=== PATIENT | male | born 1955 | race Caucasian/White ===

== ENCOUNTER 2024-10-11 04:07 | Emergency (ER) | payer MEDICARE, MEDICAID, SELFPAY ==
[2024-10-11] VITALS (7 sets, daily range): BP systolic 94–110; BP diastolic 56–80; PULSE 72–102; RESP 12–18; TEMP 36.1–37.1; O2SAT 95–99; BMI 33.3
--- NOTE | ~2024-10-11 | XR_ITS ---
CLINICAL HISTORY: Hypotension 1 view chest x-ray Comparison: None Findings: No consolidation or effusion. Normal size heart. No acute fracture. The patient is status post median sternotomy. The most superior sternal suture wire is broken. IMPRESSION: 1. No acute intrathoracic process. 2. Broken superior sternal suture wire. This document has been electronically signed by: Austyn Gonzales MD on 10/11/2024 06:11:49
--- NOTE | 2024-10-11 04:16 | ECG_ITS ---
Test Reason : CHEST PAIN Blood Pressure : */* mmHG Vent. Rate : 84 BPM Atrial Rate : * BPM P-R Int : * ms QRS Dur : 98 ms QT Int : 394 ms P-R-T Axes : * -12 118 degrees QTcB Int : 465 ms Artifact in tracing Atrial fibrillation with a competing junctional pacemaker ST & T wave abnormality, consider lateral ischemia Abnormal ECG No previous ECGs available Referred By: Yash Ascencio Electronically Signed By: KOKI MARCANO
--- NOTE | 2024-10-11 04:29 | ED.GENADULT ---
HPI - General Adult General Chief complaint: General Medical Stated complaint: HYPOTENSION Time Seen by Provider: 10/11/24 04:15 Source: patient, EMS and RN notes reviewed Mode of arrival: EMS Limitations: other (History of dementia and patient is poor historian) History of Present Illness ED Provider: DR. 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 Resident at [facility] sent for further evaluation of [facility] at the [facility], patient is a poor historian at his baseline secondary to dementia unable to provide history. Patient with history of orthostatic hypotension. Related Data Allergies Allergy/AdvReac Type Severity Reaction Status Date / Time No Known Allergies Allergy Verified 10/11/24 04:19 Review of Systems Review of Systems: Yes Unobtainable due to mental status PMFSH Social History Social History Smoked in Last 30 Days: No Advance Directives: Yes Advance Directives Information Provided: Yes Advance Directives on File: No Physical Exam ED Vital Signs: Vital Signs - 24 hr 10/11/24 04:17 10/11/24 04:30 10/11/24 04:31 Temperature 97.0 F Pulse Rate 82 90 89 Respiratory Rate 17 Blood Pressure 100/56 L 100/56 L 106/66 Pulse Oximetry 98 Oxygen Delivery Method Room Air 10/11/24 04:31 10/11/24 06:00 Temperature 98.7 F Pulse Rate 102 H 72 Respiratory Rate 12 Blood Pressure 109/63 104/58 L Pulse Oximetry 95 Oxygen Delivery Method Room Air BMI result Body Mass Index 33.3 Vital signs have been reviewed and appear to be correct. Blood pressure elevated. Heart rate normal. Respiratory rate normal. Temperature normal. Oxygen saturation normal. Appearance: Alert. Oriented to self, confused otherwise, No acute distress. Head: Normal external exam. Normocephalic. Atraumatic. No Espinoza signs noted. No raccoon eyes noted Eyes: PERRLA. EOMI. Conjunctiva and sclera normal. Eyelids normal. ENT: TM's Normal. Pharynx normal. Uvula midline. Moist mucous membranes. No trismus noted. No drooling noted. No muffled voice noted. Neck: Normal inspection. Neck supple. FROM. No adenopathy. Thyroid Normal. No meningeal signs. No neck mass noted. CVS: Normal heart rate and rhythm. Heart sound normal. No murmurs noted. Pulses normal throughout. Respiratory: No respiratory distress. Painless inspiration. Breath sounds normal. No wheezes/rales/rhonchi noted. Chest nontender. No accessory muscle usage noted or decreased air movement noted. Abdomen: Soft and nontender. Bowel sounds normal in all 4 quadrants. No distention noted. No organomegaly noted. No visible injury noted. Back: No CVA tenderness. Full range of motion noted. Skin: Skin warm and dry. Normal skin color. Normal skin turgor. No rashes/lesions/lacerations noted. Extremities: No lower extremity edema. Extremities exhibit normal range of motion. Extremities nontender. Neuro: Cranial nerve exam: II-XII are grossly intact No motor deficit. No sensory deficit. Reflexes normal. Course Reevaluation(s) Reevaluation #1: 68-year-old male found to have orthostatic hypotension at the prison, patient in the emergency department was normotensive, unremarkable labs to indicate infection, or cardiopulmonary disease, patient is out of bed able to ambulate unsteady gait, will send back to the prison. Time: 06:41 Medications Administered Discontinued Medications Generic Name Dose Route Start Last Admin Trade Name Freq PRN Reason Stop Dose Admin Sodium Chloride 1,000 mls @ 999 mls/hr 10/11/24 04:30 10/11/24 05:30 Ns IV 10/11/24 05:30 999 mls/hr .Q1H1M ONE Administration Medical Decision Making Differential Diagnosis Differential Diagnoses: The differential diagnosis associated with the presentation includes (Dehydration, electrolyte derangement, severe anemia, infection, orthostatic hypotension, UTI.) Admission/Observation Consideration of admission/observation: Escalation of care including admission/observation considered Lab Data MDM Lab Attestation statement: I reviewed the patient's lab results. 10/11/24 04:49 10/11/24 04:49 Labs: Lab Results 10/11/24 10/11/24 10/11/24 Range/Units 04:35 04:48 04:49 WBC 5.2 (4.8-10.8) X10*3/uL RBC 4.46 L (4.60-5.80) X10*6/uL Hgb 13.5 L (14.0-18.0) g/dl Hct 39.9 L (42.0-52.0) % MCV 89.5 (80.0-98.0) fL MCH 30.3 (27.0-33.0) pg MCHC 33.8 (31.0-36.0) g/dl RDW 15.0 (11.0-16.0) % Plt Count 94 L (160-400) X10*3/uL MPV 11.0 (9.4-12.4) fL Immature Gran % (Auto) 0.4 (0.0-0.4) % Neut % (Auto) 39.5 L (45-73) % Lymph % (Auto) 49.2 H (20-40) % [place] % (Auto) 9.0 (2-11) % Eos % (Auto) 1.3 (0-4) % Baso % (Auto) 0.6 (0-2) % Lymph # (Auto) 2.6 (1.2-4.9) X10*3/uL [place] # (Auto) 0.5 (0.1-1.2) X10*3/uL Eos # (Auto) 0.1 (0.0-0.4) X10*3/uL Baso # (Auto) 0.0 (0.0-0.2) X10*3/uL Abs Immat Gran (auto) 0.02 (0.00-0.03) X10*3/uL Absolute Neuts (auto) 2.1 (2.0-8.3) x10*3/uL Absolute Nucleated RBC 0.000 (0.0-0.012) X10*3/uL Nucleated RBC % (auto) 0.0 (0.0-0.2) /100WBC Smear Tech's Comments VERIFIED Sodium 136 (135-145) mmol/L Potassium 4.4 (3.3-5.1) mmol/L Chloride 100 (96-108) mmol/L Carbon Dioxide 27 (22-29) mmol/L Anion Gap 13 (12-20) BUN 21 H (9-16) mg/dL Creatinine 0.83 (0.5-1.4) mg/dL Estim Creat Clear Calc 97.3 Estimated GFR > 60 Random Glucose 109 (60-115) mg/dL Lactic Acid 1.7 (0.5-2.0) mmol/L Calcium 8.9 (8.4-10.2) mg/dL Total Bilirubin 0.5 (0.0-1.0) mg/dL Direct Bilirubin 0.2 (0.0-0.5) mg/dL AST 19 (5-37) U/L ALT 10 (0-40) U/L Alkaline Phosphatase 58 (39-117) U/L B-Natriuretic Peptide 181 H (<100) pg/mL Total Protein 6.4 L (6.5-8.0) g/dL Albumin 3.6 (3.5-5.0) g/dL Lipase 8 (8-78) U/L Urine Color Urine Appearance Urine pH (5.0-9.0) Ur Specific [place] (1.005-1.025) Urine Protein (Neg-Trace) mg/dL Urine Glucose (UA) (Negative) mg/dL Urine Ketones (Negative) mg/dL Urine Blood (Negative) Urine Nitrite (Negative) Ur Leukocyte Esterase (Negative) Influenza Type A (PCR) NEGATIVE (Negative) Influenza Type B (PCR) NEGATIVE (Negative) RSV RNA Qual (PCR) NEGATIVE (Negative) SARS-CoV-2 RNA (RT-PCR) NEGATIVE (Negative) 10/11/24 Range/Units 06:25 WBC (4.8-10.8) X10*3/uL RBC (4.60-5.80) X10*6/uL Hgb (14.0-18.0) g/dl Hct (42.0-52.0) % MCV (80.0-98.0) fL MCH (27.0-33.0) pg MCHC (31.0-36.0) g/dl RDW (11.0-16.0) % Plt Count (160-400) X10*3/uL MPV (9.4-12.4) fL Immature Gran % (Auto) (0.0-0.4) % Neut % (Auto) (45-73) % Lymph % (Auto) (20-40) % [place] % (Auto) (2-11) % Eos % (Auto) (0-4) % Baso % (Auto) (0-2) % Lymph # (Auto) (1.2-4.9) X10*3/uL [place] # (Auto) (0.1-1.2) X10*3/uL Eos # (Auto) (0.0-0.4) X10*3/uL Baso # (Auto) (0.0-0.2) X10*3/uL Abs Immat Gran (auto) (0.00-0.03) X10*3/uL Absolute Neuts (auto) (2.0-8.3) x10*3/uL Absolute Nucleated RBC (0.0-0.012) X10*3/uL Nucleated RBC % (auto) (0.0-0.2) /100WBC Smear Tech's Comments Sodium (135-145) mmol/L Potassium (3.3-5.1) mmol/L Chloride (96-108) mmol/L Carbon Dioxide (22-29) mmol/L Anion Gap (12-20) BUN (9-16) mg/dL Creatinine (0.5-1.4) mg/dL Estim Creat Clear Calc Estimated GFR Random Glucose (60-115) mg/dL Lactic Acid (0.5-2.0) mmol/L Calcium (8.4-10.2) mg/dL Total Bilirubin (0.0-1.0) mg/dL Direct Bilirubin (0.0-0.5) mg/dL AST (5-37) U/L ALT (0-40) U/L Alkaline Phosphatase (39-117) U/L B-Natriuretic Peptide (<100) pg/mL Total Protein (6.5-8.0) g/dL Albumin (3.5-5.0) g/dL Lipase (8-78) U/L Urine Color Yellow Urine Appearance Clear Urine pH 7.0 (5.0-9.0) Ur Specific [place] 1.015 (1.005-1.025) Urine Protein Negative (Neg-Trace) mg/dL Urine Glucose (UA) Negative (Negative) mg/dL Urine Ketones Negative (Negative) mg/dL Urine Blood Negative (Negative) Urine Nitrite Negative (Negative) Ur Leukocyte Esterase Negative (Negative) Influenza Type A (PCR) (Negative) Influenza Type B (PCR) (Negative) RSV RNA Qual (PCR) (Negative) SARS-CoV-2 RNA (RT-PCR) (Negative) Independent Interpretation I performed an independent interpretation of an: Plain X-Ray (Chest:1. No acute intrathoracic process. 2. Broken superior sternal suture wire.) Radiology Impression Discussion of test interpretation with radiology: I have reviewed the radiologist's reading. Discharge Plan Discharge Clinical Impression: Hypotension, unspecified Patient Disposition: Xfer SNF Instructions: Hypotension (ED) Print Language: Unable To Collect
[2024-10-11 04:54] LABS: Basophils Percent Auto 0.6 % (0-2); Eosinophils Absolute Auto 0.1 X10*3/uL (0.0-0.4); Eosinophils Percent Auto 1.3 % (0-4); Hemoglobin 13.5 g/dl (14.0-18.0); PLT CLUMP 1; SCAN SMEAR FLAG 1
[2024-10-11 04:56] LABS: Hematocrit 39.9 % (42.0-52.0); Imm Gran Abs Auto 0.02 X10*3/uL (0.00-0.03); Imm Gran Pct Auto 0.4 % (0.0-0.4); Lymphocytes Absolute Auto 2.6 X10*3/uL (1.2-4.9); Lymphocytes Percent Auto 49.2 % (20-40); MANUAL DIFF FLAG SCAN; Mean Corpuscular HGB Conc 33.8 g/dl (31.0-36.0); Mean Corpuscular Hemoglobin 30.3 pg (27.0-33.0); Mean Corpuscular Volume 89.5 fL (80.0-98.0); Monocytes Absolute Auto 0.5 X10*3/uL (0.1-1.2); Neutrophils Absolute Auto 2.1 x10*3/uL (2.0-8.3); Neutrophils Percent Auto 39.5 % (45-73); Red Blood Count 4.46 X10*6/uL (4.60-5.80)
[2024-10-11 05:00] LABS: Platelet Count 94 X10*3/uL (160-400); White Blood Count 5.2 X10*3/uL (4.8-10.8)
[2024-10-11 05:11] LABS: Alanine Aminotransferase 10 U/L (0-40); Albumin Level 3.6 g/dL (3.5-5.0); Alkaline Phosphatase 58 U/L (39-117); Anion Gap 13 (12-20); Aspartate Amino Transferase 19 U/L (5-37); Bilirubin Direct 0.2 mg/dL (0.0-0.5); Bilirubin Total 0.5 mg/dL (0.0-1.0); Blood Urea Nitrogen 21 mg/dL (9-16); Calcium 8.9 mg/dL (8.4-10.2); Carbon Dioxide 27 mmol/L (22-29); Chloride 100 mmol/L (96-108); Creatinine Clr Calc Pharmacy 97.3; Estimated Glomerular Filt Rate > 60; Glucose Random 109 mg/dL (60-115); Lipase 8 U/L (8-78); Potassium 4.4 mmol/L (3.3-5.1); Sodium 136 mmol/L (135-145); Total Protein 6.4 g/dL (6.5-8.0)
[2024-10-11 05:12] LABS: Lactic Acid 1.7 mmol/L (0.5-2.0)
[2024-10-11 05:15] LABS: B Type Natriuretic Peptide 181 pg/mL (<100); SLIDE REVIEW VERIFIED
[2024-10-11 05:16] LABS: Influenza A PCR NEGATIVE (Negative); Influenza B PCR NEGATIVE (Negative); Resp Syncy Virus RNA Qual PCR NEGATIVE (Negative); SARS COV2 PCR INHOUSE NEGATIVE (Negative)
[2024-10-11] MEDS: 0.9 % Sodium Chloride 1,000 ML 999 ML IV (05:30)
--- OUTSIDE RECORDS SUMMARY | 2024-10-11 05:43 | XMS_ITS | Encounter Summary ---
Author Organization [employer] Address [address] [place] [address] Care Team Providers Care Grain Elevator Motor Starter Name Role Phone Robin Johnson MD Primary Care Provider Encounter Details Date Type Department Care Team (Late st Contact Info) Description 09/20/2024 Lab Requisition [facility] - Main Lab [address] Pending Sale [place] [facility] [place] [address] Robin Johnson MD [address] [place] [address] Unspecified atrial fibrillation (CMS/HCC V24, CMS/HCC V28) Social History Tobacco Use Types Packs/Day Years Used Date Smoking Tobacco: Never Assessed Sex and Gender Information Value Date Recorded Sex Assigned at Not on file Legal Sex Male 10:09 AM EST Gender Identity Not on file Sexual Orientation Not on file documented as of this encounter Plan of Treatment Not on file documented as of this encounter Procedures Procedure Name Priority Date/Time Associated Diagnosis Comments CBC WITH AUTO DIFFERENTIAL Routine 09/20/2024 6:06 AM EDT Unspecified atrial fibrillation (CMS/HCC) CBC AND DIFFERENTIAL Routine 09/20/2024 6:06 AM EDT Unspecified atrial fibrillation (CMS/HCC) THYROID STIMULATING HORMONE Routine 09/20/2024 6:06 AM EDT Unspecified atrial fibrillation (CMS/HCC) AMMONIA Routine 09/20/2024 6:06 AM EDT Unspecified atrial fibrillation (CMS/HCC) VALPROIC ACID LEVEL, TOTAL Routine 09/20/2024 6:06 AM EDT Unspecified atrial fibrillation (CMS/HCC) BASIC METABOLIC PANEL Routine 09/20/2024 6:06 AM EDT Unspecified atrial fibrillation (CMS/HCC) documented in this encounter Results * (ABNORMAL) CBC auto differential (09/20/2024 6:06 AM EDT) [facility] WBC 13.1(H) 4.8 - 10.8 K/mcL LAB HEMETOLOGY METHOD 09/20/2024 7:31 AM [facility] RBC 3.90(L) 4.50 - 5.50 M/mcL LAB HEMETOLOGY METHOD 09/20/2024 7:31 AM [facility] Hemoglobin 11.8(L) 13.5 - 17.5 g/dL LAB HEMETOLOGY METHOD 09/20/2024 7:31 AM [facility] Hematocrit 34.8(L) 42.0 - 54.0 % LAB HEMETOLOGY METHOD 09/20/2024 7:31 AM [facility] MCV 88.8 79.0 - 98.0 FL LAB HEMETOLOGY METHOD 09/20/2024 7:31 AM [facility] MCH 30.1 27.0 - 32.0 pcg LAB HEMETOLOGY METHOD 09/20/2024 7:31 AM [facility] MCHC 33.9 32.0 - 37.0 g/dL LAB HEMETOLOGY METHOD 09/20/2024 7:31 AM [facility] RDW 14.6 11.0 - 15.0 % LAB HEMETOLOGY METHOD 09/20/2024 7:31 AM [facility] Platelets 141 130 - 400 K/mcL LAB HEMETOLOGY METHOD 09/20/2024 7:31 AM [facility] MPV 10.8 7.0 - 11.0 FL LAB HEMETOLOGY METHOD 09/20/2024 7:31 AM [facility] NRBC 0.0 <1.0 % LAB HEMETOLOGY METHOD 09/20/2024 7:31 AM [facility] NRBC Absolute 0.00 <0.10 K/mcL LAB HEMETOLOGY METHOD 09/20/2024 7:31 AM [facility] Neutrophils Relative 78.1 % LAB HEMETOLOGY METHOD 09/20/2024 7:31 AM [facility] Lymphocytes Relative 11.8 % LAB HEMETOLOGY METHOD 09/20/2024 7:31 AM [facility] Monocytes Relative 9.4 % LAB HEMETOLOGY METHOD 09/20/2024 7:31 AM [facility] Eosinophils Relative 0.1 % LAB HEMETOLOGY METHOD 09/20/2024 7:31 AM [facility] Basophils Relative 0.2 % LAB HEMETOLOGY METHOD 09/20/2024 7:31 AM [facility] Immature Granulocytes Relative 0.4 % LAB HEMETOLOGY METHOD 09/20/2024 7:31 AM [facility] Neutrophils Absolute 10.26(H) 1.50 - 7.00 K/mcL LAB HEMETOLOGY METHOD 09/20/2024 7:31 AM [facility] Lymphocytes Absolute 1.55 1.00 - 5.00 K/mcL LAB HEMETOLOGY METHOD 09/20/2024 7:31 AM [facility] Monocytes Absolute 1.23(H) 0.20 - 1.00 K/mcL LAB HEMETOLOGY METHOD 09/20/2024 7:31 AM [facility] Eosinophils Absolute 0.01 0.00 - 0.50 K/mcL LAB HEMETOLOGY METHOD 09/20/2024 7:31 AM [facility] Basophils Absolute 0.03 0.00 - 0.20 K/mcL LAB HEMETOLOGY METHOD 09/20/2024 7:31 AM EDT [facility] Immature Granulocytes Absolute 0.05(H) 0.00 - 0.03 K/mcL LAB HEMETOLOGY METHOD 09/20/2024 7:31 AM EDT [facility] Blood Venous blood specimen / Unknown Venipuncture / Unknown 09/20/2024 6:06 AM EDT 09/20/2024 7:20 AM EDT Robin Johnson MD LAB BLOOD ORDERABLES Final R esult [facility] [address] [place] [address], [place] [phone] * (ABNORMAL) Ammonia (09/20/2024 6:06 AM EDT) Ammonia 53(H) 11 - 35 mcmol/L LAB CHEMISTRY METHOD 09/20/2024 7:47 AM EDT [facility] Blood Venous blood specimen / Unknown Venipuncture / Unknown 09/20/2024 6:06 AM EDT 09/20/2024 7:20 AM EDT Robin Johnson MD LAB BLOOD ORDERABLES Final R esult [facility] [address] [place] [address], [place] [phone] * Valproic acid level, total (09/20/2024 6:06 AM EDT) Valproic Acid, Total 80 50 - 100 mcg/mL LAB CHEMISTRY METHOD 09/20/2024 8:14 AM EDT [facility] Blood Venous blood specimen / Unknown Venipuncture / Unknown 09/20/2024 6:06 AM EDT 09/20/2024 7:20 AM EDT Robin Johnson MD LAB BLOOD ORDERABLES Final R esult [facility] [address] [place] [address], [place] [phone] * Thyroid stimulating hormone (09/20/2024 6:06 AM EDT) TSH 1.49 0.40 - 4.00 mcIU/mL LAB CHEMISTRY METHOD 09/20/2024 9:11 AM EDT [facility] Blood Venous blood specimen / Unknown Venipuncture / Unknown 09/20/2024 6:06 AM EDT 09/20/2024 7:20 AM EDT Robin Johnson MD LAB BLOOD ORDERABLES Final R esult Performing Organization Address [facility]/ZIP Co de Phone Number [facility] [address] [place] [address], [place] [phone] * (ABNORMAL) Basic metabolic panel (09/20/2024 6:06 AM EDT) Pathologist [facility] Sodium 136 133 - 145 mmol/L LAB CHEMISTRY METHOD 09/20/2024 8:08 AM [facility] Potassium 3.0(L) 3.5 - 5.5 mmol/L LAB CHEMISTRY METHOD 09/20/2024 8:08 AM [facility] Chloride 100 96 - 110 mmol/L LAB CHEMISTRY METHOD 09/20/2024 8:08 AM [facility] CO2 27 21 - 32 mmol/L LAB CHEMISTRY METHOD 09/20/2024 8:08 AM [facility] Anion Gap 9 3 - 11 LAB CHEMISTRY METHOD 09/20/2024 8:08 AM [facility] Glucose 107(H) 70 - 100 mg/dL LAB CHEMISTRY METHOD 09/20/2024 8:08 AM [facility] BUN 8 5 - 25 mg/dL LAB CHEMISTRY METHOD 09/20/2024 8:08 AM EDT [facility] Creatinine 0.67(L) 0.70 - 1.30 mg/dL LAB CHEMISTRY METHOD 09/20/2024 8:08 AM EDT [facility] eGFR 102 >=60 mL/min/1. 73m2 LAB CHEMISTRY METHOD 09/20/2024 8:08 AM EDT [facility] Comment:Calculation based on the??Chronic Kidney Disease Epidemiology Collaboration (CKD-EPI) equation refit??without adjustment for race. BUN/Creatinine Ratio 11.9 LAB CHEMISTRY METHOD 09/20/2024 8:08 AM EDT [facility] Calcium 8.7 8.5 - 10.5 mg/dL LAB CHEMISTRY METHOD 09/20/2024 8:08 AM T [facility] Blood Venous blood specimen / Unknown Venipuncture / Unknown 09/20/2024 6:06 AM EDT 09/20/2024 7:20 AM EDT us Robin Johnson MD LAB BLOOD ORDERABLES Final R esult [facility] [address] [place] [address], documented in this encounter Visit Diagnoses Diagnosis Unspecified atrial fibrillation (CMS/HCC V24, CMS/HCC V28) documented in this encounter Care Teams Grain Elevator Motor Starter Relationship Specialty Start Date End Date Robin Johnson MD [address] [place] [address] PCP - General Family Medicine 08/23/24 documented as of this encounter
--- OUTSIDE RECORDS SUMMARY | 2024-10-11 05:43 | XMS_ITS | Clinical Summary ---
Author Organization 299 [facility] Address [address] [place] [address] Phone Care Team Providers Care Communication Analyst Name Role Phone Robin Johnson MD Primary Care Provider Encounters Date Type Department Care Team Description 10/10/2024 Lab Requisition [facility] [address] [place] [phone] Robin Johnson MD Metabolic encephalopathy 10/04/2024 Lab Requisition [facility] [address] [place] [phone] Robin Johnson MD Hypo-osmolality and hyponatremia 09/30/2024 Lab Requisition [facility] [address] [place] [phone] Robin Johnson MD Unspecified atrial fibrillation ([facility] V24, [facility] V28); Essential (primary) hypertension; Type 2 diabetes mellitus without complications ([facility]/HCC V24, CMS/HCC V28) 09/20/2024 Lab Requisition [facility] [address] [place] [phone] Robin Johnson MD Unspecified atrial fibrillation ([facility] V24, [facility] V28) 09/20/2024 Lab Requisition [facility] [address] [place] [phone] Robin Johnson MD Essential (primary) hypertension; Type 2 diabetes mellitus without complications (CMS/HCC V24, CMS/HCC V28); Hyperlipidemia, unspecified; Schizoaffective disorder, unspecified (CMS/HCC V24, [facility] V28); Unspecified atrial fibrillation (CMS/HCC V24, [facility] V28); Dysuria 08/23/[address] [facility] [address] [facility] [place] [phone] Robin Johnson MD Essential (primary) hypertension; Hyperlipidemia, unspecified; Type 2 diabetes mellitus without complications ([facility] V24, [facility] V28); Schizoaffective disorder, unspecified ([facility] [place] [facility] [place] from Last 3 Months Social History Tobacco Use Types Packs/Day Years Used Date Smoking Tobacco: Never Assessed Sex and Gender Information Value Date Recorded Sex Assigned at Not on file Legal Sex Male 10:09 AM EST Gender Identity Not on file Sexual Orientation Not on file Plan of Treatment Health Maintenance Due Date Last Done Comments Diabetes: Annual Foot Exam 12/23/1965 Diabetes: Annual Retina Eye Exam 12/23/1965 DTaP,Tdap,and Td Vaccines (1 - Tdap) 12/23/1974 Pneumococcal Vaccine: 50+ Years (1 of 2 - PCV) 12/23/1974 Zoster Vaccines (1 of 2) 12/23/2005 COVID-19 Vaccine ( - season) 2024 Abdominal Aortic Aneurysm (AAA) Screen 08/24/2024 Colorectal Cancer Screening: Colonoscopy 08/24/2024 Depression Screening 08/24/2024 Diabetes: Annual Urine Albumin-Creatinine Ratio (uACR) 08/24/2024 Falls Risk Assessment 08/24/2024 Hepatitis C Screening 08/24/2024 Medicare Annual Wellness Visit 08/24/2024 Social Influencers of Health Screening 08/24/2024 Influenza Vaccine (Season Ended) 2025 Diabetes: Blood Sugar Control Test (HGBA1C) 02/23/2025 08/23/2024 Diabetes: Annual GFR (Glomerular Filtration Rate) 10/05/2025 10/05/2024, 10/02/2024, 09/20/2024, Additional history exists Hypertension/CHF/CAD Annual BMP Blood Test 10/05/2025 10/05/2024, 10/02/2024, 09/20/2024, Additional history exists Cholesterol Screening (Lipid Panel) 08/23/2029 08/23/2024 RSV Immunization Adult Patients (1 - 1-dose 75+ series) 12/23/2030 HIB Vaccines Aged Out No longer eligi ble based on patient's age to complete this topic HPV Vaccines Aged Out No longer eligi ble based on patient's age to complete this topic Hepatitis A Vaccines Aged Out No long er eligible based on patient's age to complete this topic Hepatitis B Vaccines Aged Out No long er eligible based on patient's age to complete this topic IPV Vaccines Aged Out No longer eligi ble based on patient's age to complete this topic MMR Vaccines Aged Out No longer eligi ble based on patient's age to complete this topic Meningococcal ACWY Vaccine Aged Out N o longer eligible based on patient's age to complete this topic Meningococcal B Vaccine Aged Out No l onger eligible based on patient's age to complete this topic RSV Immunization Patients Under 20 months Aged Out No longer eligible based on patient's age to complete this topic Varicella Vaccines Aged Out No longer eligible based on patient's age to complete this topic Procedures Procedure Name Priority Date/Time Associated Diagnosis Comments MAGNESIUM Routine 10/05/2024 5:24 AM EDT Hypo-osmolality and hyponatremia BASIC METABOLIC PANEL Routine 10/05/2024 5:24 AM EDT Hypo-osmolality and hyponatremia MAGNESIUM Routine 10/02/2024 5:09 AM EDT Unspecified atrial fibrillation (CMS/HCC V24, CMS/HCC V28) Essential (primary) hypertension Type 2 diabetes mellitus without complications (CMS/HCC V24, CMS/HCC V28) BASIC METABOLIC PANEL Routine 10/02/2024 5:09 AM EDT Unspecified atrial fibrillation (CMS/HCC V24, CMS/HCC V28) Essential (primary) hypertension Type 2 diabetes mellitus without complications (CMS/HCC V24, CMS/HCC V28) COMPLETE BLOOD COUNT Routine 10/02/2024 5:09 AM EDT Unspecified atrial fibrillation (CMS/HCC V24, CMS/HCC V28) Essential (primary) hypertension Type 2 diabetes mellitus without complications (CMS/HCC V24, CMS/HCC V28) CBC WITH AUTO DIFFERENTIAL Routine 09/20/2024 6:06 [...] 6:06 AM EDT Unspecified atrial fibrillation (CMS/HCC) URINALYSIS WITH REFLEX MICROSCOPIC Routine 09/19/2024 10:00 PM EDT Essential (primary) hypertension Type 2 diabetes mellitus without complications Hyperlipidemia, unspecified Schizoaffective disorder, unspecified Unspecified atrial fibrillation (CMS/HCC) Dysuria URINALYSIS WITH REFLEX MICROSCOPIC Routine 09/19/2024 10:00 PM EDT Essential (primary) hypertension Type 2 diabetes mellitus without complications Hyperlipidemia, unspecified Schizoaffective disorder, unspecified Unspecified atrial fibrillation (CMS/HCC) Dysuria CULTURE URINE Routine 09/19/2024 10:00 PM EDT Essential (primary) hypertension Type 2 diabetes mellitus without complications Hyperlipidemia, unspecified Schizoaffective disorder, unspecified Unspecified atrial fibrillation (CMS/HCC) Dysuria HEMOGLOBIN A1C Routine 08/23/2024 7:32 AM EST Essential (primary) hypertension Hyperlipidemia, unspecified Type 2 diabetes mellitus without complications Schizoaffective disorder, unspecified VALPROIC ACID LEVEL, TOTAL Routine 08/23/2024 7:32 AM EST Essential (primary) hypertension Hyperlipidemia, unspecified Type 2 diabetes mellitus without complications Schizoaffective disorder, unspecified MAGNESIUM Routine 08/23/2024 7:32 AM EST Essential (primary) hypertension Hyperlipidemia, unspecified Type 2 diabetes mellitus without complications Schizoaffective disorder, unspecified THYROID STIMULATING HORMONE Routine 08/23/2024 7:32 AM EST Essential (primary) hypertension Hyperlipidemia, unspecified Type 2 diabetes mellitus without complications Schizoaffective disorder, unspecified LIPID PANEL WITH REFLEX TO DIRECT LDL Routine 08/23/2024 7:32 AM EST Essential (primary) hypertension Hyperlipidemia, unspecified Type 2 diabetes mellitus without complications Schizoaffective disorder, unspecified COMPREHENSIVE METABOLIC PANEL Routine 08/23/2024 7:32 AM EST Essential (primary) hypertension Hyperlipidemia, unspecified Type 2 diabetes mellitus without complications Schizoaffective disorder, unspecified COMPLETE BLOOD COUNT Routine 08/23/2024 7:32 AM EST Essential (primary) hypertension Hyperlipidemia, unspecified Type 2 diabetes mellitus without complications Schizoaffective disorder, unspecified from Last 3 Months Results * (ABNORMAL) Magnesium (10/05/2024 5:24 AM EDT) Only the most recent of3 resultswithin the time period is included. [facility] Magnesium 1.6(L) 1.9 - 2.6 mg/dL LAB CHEMISTRY METHOD 10/05/2024 9:45 AM EDT [facility] Blood Venous blood specimen / Unknown Venipuncture / Unknown 10/05/2024 5:24 AM EDT 10/05/2024 9:09 AM EDT us Robin Johnson MD LAB BLOOD ORDERABLES Final R esult [facility] [address] [place] [address], * (ABNORMAL) Basic metabolic panel (10/05/2024 5:24 AM EDT) Only the most recent of3 resultswithin the time period is included. [facility] Sodium 140 133 - 145 mmol/L LAB CHEMISTRY METHOD 10/05/2024 9:45 AM [facility] Potassium 3.3(L) 3.5 - 5.5 mmol/L LAB CHEMISTRY METHOD 10/05/2024 9:45 AM [facility] Chloride 99 96 - 110 mmol/L LAB CHEMISTRY METHOD 10/05/2024 9:45 AM [facility] CO2 31 21 - 32 mmol/L LAB CHEMISTRY METHOD 10/05/2024 9:45 AM [facility] Anion Gap 10 3 - 11 LAB CHEMISTRY METHOD 10/05/2024 9:45 AM [facility] Glucose 71 70 - 100 mg/dL LAB CHEMISTRY METHOD 10/05/2024 9:45 AM [facility] BUN 17 5 - 25 mg/dL LAB CHEMISTRY METHOD 10/05/2024 9:45 AM [facility] Creatinine 0.87 0.70 - 1.30 mg/dL LAB CHEMISTRY METHOD 10/05/2024 9:45 AM [facility] eGFR 94 >=60 mL/min/1. 73m2 LAB CHEMISTRY METHOD 10/05/2024 9:45 AM [facility] Comment:Calculation based on the??Chronic Kidney Disease Epidemiology Collaboration (CKD-EPI) equation refit??without adjustment for race. BUN/Creatinine Ratio 19.5 LAB CHEMISTRY METHOD 10/05/2024 9:45 AM [facility] Calcium 9.2 8.5 - 10.5 mg/dL LAB CHEMISTRY METHOD 10/05/2024 9:45 AM [facility] Blood Venous blood specimen / Unknown Venipuncture / Unknown 10/05/2024 5:24 AM EDT 10/05/2024 9:09 AM EDT us Robin Johnson MD LAB BLOOD ORDERABLES Final R esult [facility] [address] [place] [address], * (ABNORMAL) Complete blood count (10/02/2024 5:09 AM EDT) Only the most recent of2 resultswithin the time period is included. WBC 6.9 4.8 - 10.8 K/mcL LAB HEMETOLOGY METHOD 10/02/2024 1:28 PM EDT [facility] RBC 4.60 4.50 - 5.50 M/mcL LAB HEMETOLOGY METHOD 10/02/2024 1:28 PM EDT [facility] Hemoglobin 13.9 13.5 - 17.5 g/dL LAB HEMETOLOGY METHOD 10/02/2024 1:28 PM EDT [facility] Hematocrit 41.8(L) 42.0 - 54.0 % LAB HEMETOLOGY METHOD 10/02/2024 1:28 PM EDT [facility] MCV 91.7 79.0 - 98.0 FL LAB HEMETOLOGY METHOD 10/02/2024 1:28 PM EDT [facility] MCH 30.5 27.0 - 32.0 pcg LAB HEMETOLOGY METHOD 10/02/2024 1:28 PM EDT [facility] MCHC 33.3 32.0 - 37.0 g/dL LAB HEMETOLOGY METHOD 10/02/2024 1:28 PM EDT [facility] RDW 14.9 11.0 - 15.0 % LAB HEMETOLOGY METHOD 10/02/2024 1:28 PM EDT [facility] Platelets 144 130 - 400 K/mcL LAB HEMETOLOGY METHOD 10/02/2024 1:28 PM EDT [facility] MPV 11.5(H) 7.0 - 11.0 FL LAB HEMETOLOGY METHOD 10/02/2024 1:28 PM EDT [facility] NRBC 0.0 <1.0 % LAB HEMETOLOGY METHOD 10/02/2024 1:28 PM EDT [facility] NRBC Absolute 0.00 <0.10 K/mcL LAB HEMETOLOGY METHOD 10/02/2024 1:28 PM EDT [facility] Blood Venous blood specimen / Unknown Venipuncture / Unknown 10/02/2024 5:09 AM EDT 10/02/2024 12:25 PM EDT us Robin Johnson MD LAB BLOOD ORDERABLES Final R esult [facility] [address] [place] [address], * (ABNORMAL) CBC auto differential (09/20/2024 6:06 AM EDT) WBC 13.1(H) 4.8 - 10.8 K/mcL LAB HEMETOLOGY METHOD 09/20/2024 7:31 AM EDT [facility] RBC 3.90(L) 4.50 - 5.50 M/mcL LAB HEMETOLOGY METHOD 09/20/2024 7:31 AM [facility] Hemoglobin 11.8(L) 13.5 - 17.5 g/dL LAB HEMETOLOGY METHOD 09/20/2024 7:31 AM EDT [facility] Hematocrit 34.8(L) 42.0 - 54.0 % LAB HEMETOLOGY METHOD 09/20/2024 7:31 AM EDT [facility] MCV 88.8 79.0 - 98.0 FL LAB HEMETOLOGY METHOD 09/20/2024 7:31 AM [facility] MCH 30.1 27.0 - 32.0 pcg LAB HEMETOLOGY METHOD 09/20/2024 7:31 AM [facility] MCHC 33.9 32.0 - 37.0 g/dL LAB HEMETOLOGY METHOD 09/20/2024 7:31 AM [facility] RDW 14.6 11.0 - 15.0 % LAB HEMETOLOGY METHOD 09/20/2024 7:31 AM [facility] Platelets 141 130 - 400 K/mcL LAB HEMETOLOGY METHOD 09/20/2024 7:31 AM [facility] MPV 10.8 7.0 - 11.0 FL LAB HEMETOLOGY METHOD 09/20/2024 7:31 AM [facility] NRBC 0.0 <1.0 % LAB HEMETOLOGY METHOD 09/20/2024 7:31 AM [facility] NRBC Absolute 0.00 <0.10 K/mcL LAB HEMETOLOGY METHOD 09/20/2024 7:31 AM [facility] Neutrophils Relative 78.1 % LAB HEMETOLOGY METHOD 09/20/2024 7:31 AM [facility] Lymphocytes Relative 11.8 % LAB HEMETOLOGY METHOD 09/20/2024 7:31 AM [facility] Monocytes Relative 9.4 % LAB HEMETOLOGY METHOD 09/20/2024 7:31 AM [facility] Eosinophils Relative 0.1 % LAB HEMETOLOGY METHOD 09/20/2024 7:31 AM [facility] Basophils Relative 0.2 % LAB HEMETOLOGY METHOD 09/20/2024 7:31 AM [facility] Immature Granulocytes Relative 0.4 % LAB HEMETOLOGY METHOD 09/20/2024 7:31 AM [facility] Neutrophils Absolute 10.26(H) 1.50 - 7.00 K/mcL LAB HEMETOLOGY METHOD 09/20/2024 7:31 AM EDT [facility] Lymphocytes Absolute 1.55 1.00 - 5.00 K/[facility] LAB HEMETOLOGY METHOD 09/20/2024 7:31 AM EDT [facility] Monocytes Absolute 1.23(H) 0.20 - 1.00 K/[facility] LAB HEMETOLOGY METHOD 09/20/2024 7:31 AM EDT [facility] Eosinophils Absolute 0.01 0.00 - 0.50 K/[facility] LAB HEMETOLOGY METHOD 09/20/2024 7:31 AM EDT [facility] Basophils Absolute 0.03 0.00 - 0.20 K/[facility] LAB HEMETOLOGY METHOD 09/20/2024 7:31 AM EDT [facility] Immature Granulocytes Absolute 0.05(H) 0.00 - 0.03 K/[facility] LAB HEMETOLOGY METHOD 09/20/2024 7:31 AM EDT [facility] Blood Venous blood specimen / Unknown Venipuncture / Unknown 09/20/2024 6:06 AM EDT 09/20/2024 7:20 AM EDT us Robin Johnson MD LAB BLOOD ORDERABLES Final R esult [facility] [address] [place] [address], * Thyroid stimulating hormone (09/20/2024 6:06 AM EDT) Only the most recent of2 resultswithin the time period is included. TSH 1.49 0.40 - 4.00 mcIU/mL LAB CHEMISTRY METHOD 09/20/2024 9:11 AM EDT [facility] Blood Venous blood specimen / Unknown Venipuncture / Unknown 09/20/2024 6:06 AM EDT 09/20/2024 7:20 AM EDT us Robin Johnson MD LAB BLOOD ORDERABLES Final R esult Performing Organization Address City/[facility]/ZIP Co de Phone Number [facility] [address] [place] [address], [place] [phone] * (ABNORMAL) Ammonia (09/20/2024 6:06 AM EDT) [facility] Ammonia 53(H) 11 - 35 mcmol/L LAB CHEMISTRY METHOD 09/20/2024 7:47 AM EDT [facility] Blood Venous blood specimen / Unknown Venipuncture / Unknown 09/20/2024 6:06 AM EDT 09/20/2024 7:20 AM EDT Robin Johnson MD [facility] Per[facility] Organization Address [facility] Co de Phone Number [facility] [address] [place] [address], [place] [phone] * Valproic acid level, total (09/20/2024 6:06 AM EDT) Only the most recent of2 resultswithin the time period is included. [facility] Valproic Acid, Total 80 50 - 100 mcg/mL LAB CHEMISTRY METHOD 09/20/2024 8:14 AM EDT [facility] Blood Venous blood specimen / Unknown Venipuncture / Unknown 09/20/2024 6:06 AM EDT 09/20/2024 7:20 AM EDT Robin Johnson MD LAB BLOOD ORDERABLES [facility] Performing Organization Address City/[facility]/ZIP Co de Phone Number [facility] [address] [place] [address], [place] [phone] * (ABNORMAL) Urinalysis with reflex microscopic (09/19/2024 10:00 PM EDT) [facility] Specific [place] Urine 1.025 1.003 - 1.030 LAB URINALYSIS - AUTOMATED METHOD 09/20/2024 1:12 PM [facility] pH, Urine 6.0 5.0 - 8.0 pH LAB URINALYSIS - AUTOMATED METHOD 09/20/2024 1:12 PM [facility] Leukocytes, Urine Small(A) Negative LAB URINALYSIS - AUTOMATED METHOD 09/20/2024 1:12 PM [facility] Nitrite, Urine Negative Negative LAB URINALYSIS - AUTOMATED METHOD 09/20/2024 1:12 PM [facility] Protein, Urine 30(A) <=Trace mg/dL LAB URINALYSIS - AUTOMATED METHOD 09/20/2024 1:12 PM [facility] Glucose, Urine Negative Negative mg/dL LAB URINALYSIS - AUTOMATED METHOD 09/20/2024 1:12 PM [facility] Ketones, Urine 15(A) Negative mg/dL LAB URINALYSIS - AUTOMATED METHOD 09/20/2024 1:12 PM [facility] Urobilinogen, Urine 1.0 0.2 - 1.0 mg/dL LAB URINALYSIS - AUTOMATED METHOD 09/20/2024 1:12 PM [facility] Bilirubin, Urine Small(A) Negative LAB URINALYSIS - AUTOMATED METHOD 09/20/2024 1:12 PM [facility] Blood, Urine Negative Negative LAB URINALYSIS - AUTOMATED METHOD 09/20/2024 1:12 PM [facility] RBC, Urine 4.0 0 - 4 /HPF LAB URINALYSIS - AUTOMATED METHOD 09/20/2024 1:12 PM [facility] WBC, Urine 12.9(H) 0 - 4 /HPF LAB URINALYSIS - AUTOMATED METHOD 09/20/2024 1:12 PM [facility] Squamous Epithelial, Urine 64(H) 0 - 60 /LPF LAB URINALYSIS - AUTOMATED METHOD 09/20/2024 1:12 PM EDT [facility] Bacteria, Urine Negative Negative /HPF LAB URINALYSIS - AUTOMATED METHOD 09/20/2024 1:12 PM EDT [facility] Hyaline Casts, Urine 2.4 0 - 3 /LPF LAB URINALYSIS - AUTOMATED METHOD 09/20/2024 1:12 PM EDT [facility] Mucus, Urine Trace(A) None /HPF 09/20/2024 1:12 PM EDT [facility] Urine Urine specimen obtained by clean catch procedure / Unknown Non-blood Collection / Unknown 09/19/2024 10:00 PM EDT 09/20/2024 12:25 PM EDT us Robin Johnson MD LAB URINE ORDERABLES Final R esult [facility] [address] [place] [address], * (ABNORMAL) Culture urine (09/19/2024 10:00 PM EDT) [facility] Signature Culture, Urine >100,000 CFU/mL Enterococcus faecalis(A) JAY 09/22/2024 10:38 AM EDT [facility] Comment: Edited result: Previously reported as Enterococcus species on 09/21/2024 at 1001 EDT. Urine Urine specimen obtained by clean catch procedure / Unknown Non-blood Collection / Unknown 09/19/2024 10:00 PM EDT 09/20/2024 12:25 PM EDT Narrative Organism Antibiotic Method Susceptibility Enterococcus faecalis Benzylpenicillin JAY 4 ug/ml: Susceptible Enterococcus faecalis Ampicillin JAY <=2 ug/ml: Susceptible Enterococcus faecalis Ciprofloxacin JAY <=0.5 ug/ml: Susceptible Enterococcus faecalis Levofloxacin JAY 1 ug/ml: Susceptible Enterococcus faecalis Linezolid JAY 2 ug/ml: Susceptible Enterococcus faecalis Vancomycin JAY 1 ug/ml: Susceptible Enterococcus faecalis Tetracycline JAY >=16 ug/ml: Resistant Enterococcus faecalis Nitrofurantoin JAY <=16 ug/ml: Susceptible Robin Johnson MD LAB MICROBIOLOGY - GENERAL O RDERABLES Final Result [facility] [address] [place] [address], [place] [phone] * Lipid panel with reflex to direct LDL (08/23/2024 7:32 AM EST) Cholesterol 83 0 - 200 mg/dL LAB CHEMISTRY METHOD 08/23/2024 3:14 PM EST [facility] Triglycerides 60 0 - 150 mg/dL LAB CHEMISTRY METHOD 08/23/2024 3:14 PM EST [facility] HDL 42 >=40 mg/dL LAB CHEMISTRY METHOD 08/23/2024 3:14 PM EST [facility] LDL Calculated 29 0 - 100 mg/dL LAB CHEMISTRY METHOD 08/23/2024 3:14 PM EST [facility] VLDL Cholesterol Garry 12 mg/dL LAB CHEMISTRY METHOD 08/23/2024 3:14 PM EST [facility] Non HDL Chol. (LDL+VLDL) 41 <145 mg/dL LAB CHEMISTRY METHOD 08/23/2024 3:14 PM EST [facility] Chol/HDL Ratio 2.0 0.0 - 4.4 LAB CHEMISTRY METHOD 08/23/2024 3:14 PM EST [facility] Blood Venous blood specimen / Unknown Venipuncture / Unknown 08/23/2024 7:32 AM EST 08/23/2024 10:18 AM EST Robin Johnson MD LAB BLOOD ORDERABLES Final R esult Performing Organization Address City/[facility]/ZIP Co de Phone Number [facility] [address] [place] [address], [place] [phone] * Hemoglobin A1c (08/23/2024 7:32 AM EST) Hemoglobin A1C 6.1 <6.5 % LAB CHEMISTRY METHOD 08/23/2024 9:56 PM [facility] Mean Bld Glu Estim. 128 mg/dL LAB CHEMISTRY METHOD 08/23/2024 9:56 PM [facility] Blood Venous blood specimen / Unknown Venipuncture / Unknown 08/23/2024 7:32 AM EST 08/23/2024 10:18 AM EST us Robin Johnson MD LAB BLOOD ORDERABLES Final R esult [facility] [address] [place] [address], * (ABNORMAL) Comprehensive metabolic panel (08/23/2024 7:32 AM EST) Sodium 140 133 - 145 mmol/L LAB CHEMISTRY METHOD 08/23/2024 3:14 PM [facility] Potassium 3.9 3.5 - 5.5 mmol/L LAB CHEMISTRY METHOD 08/23/2024 3:14 PM [facility] Chloride 104 96 - 110 mmol/L LAB CHEMISTRY METHOD 08/23/2024 3:14 PM [facility] CO2 25 21 - 32 mmol/L LAB CHEMISTRY METHOD 08/23/2024 3:14 PM [facility] Anion Gap 11 3 - 11 LAB CHEMISTRY METHOD 08/23/2024 3:14 PM [facility] Glucose 116(H) 70 - 100 mg/dL LAB CHEMISTRY METHOD 08/23/2024 3:14 PM [facility] BUN 12 5 - 25 mg/dL LAB CHEMISTRY METHOD 08/23/2024 3:14 PM [facility] Creatinine 0.78 0.70 - 1.30 mg/dL LAB CHEMISTRY METHOD 08/23/2024 3:14 PM [facility] eGFR 97 >=60 mL/min/1. 73m2 LAB CHEMISTRY METHOD 08/23/2024 3:14 PM [facility] Comment:Calculation based on the??Chronic Kidney Disease Epidemiology Collaboration (CKD-EPI) equation refit??without adjustment for race. BUN/Creatinine Ratio 15.4 LAB CHEMISTRY METHOD 08/23/2024 3:14 PM [facility] Calcium 8.7 8.5 - 10.5 mg/dL LAB CHEMISTRY METHOD 08/23/2024 3:14 PM [facility] AST (SGOT) 13 10 - 42 unit/L LAB CHEMISTRY METHOD 08/23/2024 3:14 PM [facility] ALT (SGPT) 12 10 - 60 unit/L LAB CHEMISTRY METHOD 08/23/2024 3:14 PM [facility] Alkaline Phosphatase 76 42 - 121 unit/L LAB CHEMISTRY METHOD 08/23/2024 3:14 PM [facility] Total Protein 6.4 6.0 - 8.0 g/dL LAB CHEMISTRY METHOD 08/23/2024 3:14 PM [facility] Albumin 3.3 3.2 - 5.0 g/dL LAB CHEMISTRY METHOD 08/23/2024 3:14 PM [facility] Total Bilirubin 0.3 0.0 - 1.4 mg/dL LAB CHEMISTRY METHOD 08/23/2024 3:14 PM [facility] Blood Venous blood specimen / Unknown Venipuncture / Unknown 08/23/2024 7:32 AM EST 08/23/2024 10:18 AM EST us Robin Johnson MD LAB BLOOD ORDERABLES Final R esult [facility] [address] [place] [address], from Last 3 Months Insurance MEDICARE Care Teams Communication Analyst Relationship Specialty Start Date End Date Robin Johnson MD [address] [place] [address] PCP - General Family Medicine 08/23/24
--- OUTSIDE RECORDS SUMMARY | 2024-10-11 05:43 | XMS_ITS | Encounter Summary ---
Author Organization [employer] Address [address] [place] [address] Care Team Providers Care Foam Fabricator Name Role Phone Robin Johnson MD Primary Care Provider [phone] Encounter Details Date Type Department Care Team (Latest Contact Info) Description 08/23/2024 Lab Requisition [facility] - Main Lab 299 [facility] [place] [address] Robin Johnson MD [facility] [place] [address] Essential (primary) hypertension; Hyperlipidemia, unspecified; Type 2 diabetes mellitus without complications (CMS/HCC V24, CMS/HCC V28); Schizoaffective disorder, unspecified (CMS/HCC V24, CMS/HCC V28) Social History Tobacco [...] Procedure Name Priority Date/Time Associated Diagnosis Comments LIPID PANEL WITH REFLEX TO DIRECT LDL [...] diabetes mellitus without complications Schizoaffective disorder, unspecified HEMOGLOBIN A1C Routine 08/23/2024 7:32 AM EST [...] diabetes mellitus without complications Schizoaffective disorder, unspecified documented in this encounter Results * Hemoglobin A1c (08/23/2024 7:32 AM EST) Hemoglobin A1C 6.1 <6.5 % LAB CHEMISTRY METHOD 08/23/2024 9:56 PM EST [facility] Mean Bld Glu Estim. 128 mg/dL LAB CHEMISTRY METHOD 08/23/2024 9:56 PM EST [facility] Blood Venous blood specimen / Unknown Venipuncture / Unknown 08/23/2024 7:32 AM EST 08/23/2024 10:18 AM EST Robin Johnson MD LAB BLOOD ORDERABLES Final R esult [facility] [address] [place] [address], * (ABNORMAL) Valproic acid level, total (08/23/2024 7:32 AM EST) Valproic Acid, Total 31(L) 50 - 100 mcg/mL LAB CHEMISTRY METHOD 08/23/2024 3:14 PM EST [facility] Blood Venous blood specimen / Unknown Venipuncture / Unknown 08/23/2024 7:32 AM EST 08/23/2024 10:18 AM EST Robin Johnson MD LAB BLOOD ORDERABLES Final R esult Performing Organization Address City/[facility]/ZIP Co de Phone Number [facility] [address] [place] [address], [place] [phone] * Magnesium (08/23/2024 7:32 AM EST) Pathologist [facility] [place] Magnesium 2.0 1.9 - 2.6 mg/dL LAB CHEMISTRY METHOD 08/23/2024 3:08 PM EST [facility] Blood Venous blood specimen / Unknown Venipuncture / Unknown 08/23/2024 7:32 AM EST 08/23/2024 10:18 AM EST us Robin Johnson MD LAB BLOOD ORDERABLES Final R esult Performing Organization Address City/[facility]/ZIP Co de Phone Number [facility] [address] [place] [address], [place] [phone] * (ABNORMAL) Thyroid stimulating hormone (08/23/2024 7:32 AM EST) [facility] TSH 4.69(H) 0.40 - 4.00 mcIU/mL LAB CHEMISTRY METHOD 08/23/2024 2:56 PM EST [facility] Blood Venous blood specimen / Unknown Venipuncture / Unknown 08/23/2024 7:32 AM EST 08/23/2024 10:18 AM EST us Robin Johnson MD LAB BLOOD ORDERABLES Final R esult Performing Organization Address City/[facility]/ZIP Co de Phone Number [facility] [address] [place] [address], [place] [phone] * Lipid panel with reflex to direct LDL (08/23/2024 7:32 AM EST) Pathologist [facility] [place] Cholesterol 83 0 - 200 mg/dL LAB CHEMISTRY METHOD 08/23/2024 3:14 PM EST [facility] Triglycerides 60 0 - 150 mg/dL LAB CHEMISTRY METHOD 08/23/2024 3:14 PM [facility] HDL 42 >=40 mg/dL LAB CHEMISTRY METHOD 08/23/2024 3:14 PM [facility] LDL Calculated 29 0 - 100 mg/dL LAB CHEMISTRY METHOD 08/23/2024 3:14 PM [facility] VLDL Cholesterol Garry 12 mg/dL LAB CHEMISTRY METHOD 08/23/2024 3:14 PM [facility] Non HDL Chol. (LDL+VLDL) 41 <145 mg/dL LAB CHEMISTRY METHOD 08/23/2024 3:14 PM [facility] Chol/HDL Ratio 2.0 0.0 - 4.4 LAB CHEMISTRY METHOD 08/23/2024 3:14 PM [facility] Blood Venous blood specimen / Unknown Venipuncture / Unknown 08/23/2024 7:32 AM EST 08/23/2024 10:18 AM EST Robin Johnson MD LAB BLOOD ORDERABLES Final R esult [facility] [address] [place] [address], * (ABNORMAL) Comprehensive metabolic panel (08/23/2024 7:32 AM EST) [facility] Sodium 140 133 - 145 mmol/L LAB CHEMISTRY METHOD 08/23/2024 3:14 PM [facility] Potassium 3.9 3.5 - 5.5 mmol/L LAB CHEMISTRY METHOD 08/23/2024 3:14 PM [facility] Chloride 104 96 - 110 mmol/L LAB CHEMISTRY METHOD 08/23/2024 3:14 PM [facility] CO2 25 21 - 32 mmol/L LAB CHEMISTRY METHOD 08/23/2024 3:14 PM [facility] Anion Gap 11 3 - 11 LAB CHEMISTRY METHOD 08/23/2024 3:14 PM [facility] Glucose 116(H) 70 - 100 mg/dL LAB CHEMISTRY METHOD 08/23/2024 3:14 PM [facility] BUN 12 5 - 25 mg/dL LAB CHEMISTRY METHOD 08/23/2024 3:14 PM [facility] Creatinine 0.78 0.70 - 1.30 mg/dL LAB CHEMISTRY METHOD 08/23/2024 3:14 PM [facility] eGFR 97 >=60 mL/min/1. 73m2 LAB CHEMISTRY METHOD 08/23/2024 3:14 PM [facility] Comment:Calculation based on the??Chronic Kidney Disease Epidemiology Collaboration (CKD-EPI) equation refit??without adjustment for race. BUN/Creatinine Ratio 15.4 LAB CHEMISTRY METHOD 08/23/2024 3:14 PM [facility] Calcium 8.7 8.5 - 10.5 mg/dL LAB CHEMISTRY METHOD 08/23/2024 3:14 PM [facility] AST (SGOT) 13 10 - 42 unit/L LAB CHEMISTRY METHOD 08/23/2024 3:14 PM [facility] ALT (SGPT) 12 10 - 60 unit/L LAB CHEMISTRY METHOD 08/23/2024 3:14 PM [facility] Alkaline Phosphatase 76 42 - 121 unit/L LAB CHEMISTRY METHOD 08/23/2024 3:14 PM [facility] Total Protein 6.4 6.0 - 8.0 g/dL LAB CHEMISTRY METHOD 08/23/2024 3:14 PM [facility] Albumin 3.3 3.2 - 5.0 g/dL LAB CHEMISTRY METHOD 08/23/2024 3:14 PM [facility] Total Bilirubin 0.3 0.0 - 1.4 mg/dL LAB CHEMISTRY METHOD 08/23/2024 3:14 PM [facility] Blood Venous blood specimen / Unknown Venipuncture / Unknown 08/23/2024 7:32 AM EST 08/23/2024 10:18 AM EST us Robin Johnson MD LAB BLOOD ORDERABLES Final R esult [facility] [address] [place] [address], * (ABNORMAL) Complete blood count (08/23/2024 7:32 AM EST) WBC 8.2 4.8 - 10.8 K/mcL LAB HEMETOLOGY METHOD 08/23/2024 11:45 AM [facility] RBC 4.20(L) 4.50 - 5.50 M/mcL LAB HEMETOLOGY METHOD 08/23/2024 11:45 AM [facility] Hemoglobin 12.7(L) 13.5 - 17.5 g/dL LAB HEMETOLOGY METHOD 08/23/2024 11:45 AM [facility] Hematocrit 38.5(L) 42.0 - 54.0 % LAB HEMETOLOGY METHOD 08/23/2024 11:45 AM [facility] MCV 92.1 79.0 - 98.0 FL LAB HEMETOLOGY METHOD 08/23/2024 11:45 AM [facility] MCH 30.4 27.0 - 32.0 pcg LAB HEMETOLOGY METHOD 08/23/2024 11:45 AM [facility] MCHC 33.0 32.0 - 37.0 g/dL LAB HEMETOLOGY METHOD 08/23/2024 11:45 AM [facility] RDW 15.3(H) 11.0 - 15.0 % LAB HEMETOLOGY METHOD 08/23/2024 11:45 AM EST [facility] Platelets 185 130 - 400 K/mcL LAB HEMETOLOGY METHOD 08/23/2024 11:45 AM EST [facility] MPV 11.1(H) 7.0 - 11.0 FL LAB HEMETOLOGY METHOD 08/23/2024 11:45 AM EST [facility] NRBC 0.0 <1.0 % LAB HEMETOLOGY METHOD 08/23/2024 11:45 AM EST [facility] NRBC Absolute 0.00 <0.10 K/mcL LAB HEMETOLOGY METHOD 08/23/2024 11:45 AM [facility] Blood Venous blood specimen / Unknown Venipuncture / Unknown 08/23/2024 7:32 AM EST 08/23/2024 10:18 AM EST us Robin Johnson MD LAB BLOOD ORDERABLES Final R esult [facility] [address] [place] [address], documented in this encounter Visit Diagnoses Diagnosis Essential (primary) hypertension Unspecified essential hypertension Hyperlipidemia, unspecified Type 2 diabetes mellitus without complications (CMS/HCC V24, [facility]/HCC V28) Schizoaffective disorder, unspecified ([facility] V24, [facility] V28) documented in this encounter Care Teams Foam Fabricator Relationship Specialty Start Date End Date Robin Johnson MD [address] [place] [address] PCP - General Family Medicine 08/23/24 documented as of this encounter
--- OUTSIDE RECORDS SUMMARY | 2024-10-11 05:43 | XMS_ITS | Encounter Summary ---
Author Organization [employer] Address [address] [place] [address] Care Team Providers Care Block Out Machine Operator Name Role Phone Robin Johnson MD Primary Care Provider [phone]- [phone] Encounter Details Date Type Department Care Team (Latest Contact Info) Description 09/20/2024 Lab Requisition [facility] - Main Lab [address] [facility] [place] [address] Robin Johnson MD [facility] [place] [address] Essential (primary) hypertension; Type 2 diabetes mellitus without complications (CMS/HCC V24, CMS/HCC V28); Hyperlipidemia, unspecified; Schizoaffective disorder, unspecified (CMS/HCC V24, CMS/HCC V28); Unspecified atrial fibrillation (CMS/HCC V24, CMS/HCC V28); Dysuria Social History Tobacco Use Types Packs/Day Years [...] Procedure Name Priority Date/Time Associated Diagnosis Comments URINALYSIS WITH REFLEX MICROSCOPIC Routine 09/19/2024 10:00 [...] unspecified Schizoaffective disorder, unspecified Unspecified atrial fibrillation ([facility]/HCC) Dysuria documented in this encounter Results * (ABNORMAL) Urinalysis with reflex microscopic (09/19/2024 10:00 PM EDT) Specific [place] Urine 1.025 1.003 - 1.030 LAB URINALYSIS - AUTOMATED METHOD 09/20/2024 1:12 PM [facility] pH, Urine 6.0 5.0 - 8.0 pH LAB URINALYSIS - AUTOMATED METHOD 09/20/2024 1:12 PM [facility] Leukocytes, Urine Small(A) Negative LAB URINALYSIS - AUTOMATED METHOD 09/20/2024 1:12 PM [facility] Nitrite, Urine Negative Negative LAB URINALYSIS - AUTOMATED METHOD 09/20/2024 1:12 PM [facility] Protein, Urine 30(A) <=Trace mg/dL LAB URINALYSIS - AUTOMATED METHOD 09/20/2024 1:12 PM [facility] Glucose, Urine Negative Negative mg/dL LAB URINALYSIS - AUTOMATED METHOD 09/20/2024 1:12 PM [facility] Ketones, Urine 15(A) Negative mg/dL LAB URINALYSIS - AUTOMATED METHOD 09/20/2024 1:12 PM [facility] Urobilinogen, Urine 1.0 0.2 - 1.0 mg/dL LAB URINALYSIS - AUTOMATED METHOD 09/20/2024 1:12 PM [facility] Bilirubin, Urine Small(A) Negative LAB URINALYSIS - AUTOMATED METHOD 09/20/2024 1:12 PM [facility] Blood, Urine Negative Negative LAB URINALYSIS - AUTOMATED METHOD 09/20/2024 1:12 PM [facility] RBC, Urine 4.0 0 - 4 /HPF LAB URINALYSIS - AUTOMATED METHOD 09/20/2024 1:12 PM EDT [facility] WBC, Urine 12.9(H) 0 - 4 /HPF LAB URINALYSIS - AUTOMATED METHOD 09/20/2024 1:12 PM EDT [facility] Squamous Epithelial, Urine 64(H) 0 - 60 /LPF LAB URINALYSIS - AUTOMATED METHOD 09/20/2024 1:12 PM EDT [facility] Bacteria, Urine Negative Negative /HPF LAB URINALYSIS - AUTOMATED METHOD 09/20/2024 1:12 PM EDT [facility] Hyaline Casts, Urine 2.4 0 - 3 /LPF LAB URINALYSIS - AUTOMATED METHOD 09/20/2024 1:12 PM EDT [facility] Mucus, Urine Trace(A) None /HPF 09/20/2024 1:12 PM EDT [facility] Urine Urine specimen obtained by clean catch procedure / Unknown Non-blood Collection / Unknown 09/19/2024 10:00 PM EDT 09/20/2024 12:25 PM EDT Robin Johnson MD LAB URINE ORDERABLES Final R esult [facility] [address] [place] [address], * (ABNORMAL) Culture urine (09/19/2024 10:00 PM EDT) Culture, Urine >100,000 CFU/mL Enterococcus faecalis(A) JAY 09/22/2024 10:38 AM EDT [facility] Comment: Edited result: Previously reported [...] Enterococcus faecalis Nitrofurantoin JAY <=16 ug/ml: Susceptible us Robin Johnson MD LAB MICROBIOLOGY - GENERAL O RDERABLES Final Result [facility] ([facility] [address] [place] [address], documented in this encounter Visit Diagnoses Diagnosis Essential (primary) hypertension Unspecified essential hypertension Type 2 diabetes mellitus without complications ([facility] V24, [facility] V28) Hyperlipidemia, unspecified Schizoaffective disorder, unspecified ([facility] V24, [facility] V28) Unspecified atrial fibrillation ([facility] V24, [facility] V28) Dysuria documented in this encounter Care Teams Block Out Machine Operator Relationship Specialty Start Date End Date Robin Johnson MD [address] [place] [id number] PCP - General Family Medicine 08/23/24 documented as of this encounter
--- OUTSIDE RECORDS SUMMARY | 2024-10-11 05:43 | XMS_ITS | Encounter Summary ---
Author Organization [employer] Address [address] [place] [address] Care Team Providers Care Vacuum Filter Operator Name Role Phone Robin Johnson MD Primary Care Provider Encounter Details Date Type Department Care Team (Latest Contact Info) Description 09/30/2024 Lab Requisition [facility] - Main Lab [address] [facility] [place] [address] Robin Johnson MD [facility] [place] [address] Unspecified atrial fibrillation (CMS/HCC V24, CMS/HCC V28); Essential (primary) hypertension; Type 2 diabetes mellitus without complications (CMS/HCC V24, CMS/HCC V28) Social History Tobacco [...] Procedure Name Priority Date/Time Associated Diagnosis Comments COMPLETE BLOOD COUNT Routine 10/02/2024 5:09 AM EDT Unspecified atrial fibrillation (CMS/HCC V24, CMS/HCC V28) Essential (primary) hypertension Type 2 diabetes mellitus without complications (CMS/HCC V24, CMS/HCC V28) MAGNESIUM Routine 10/02/2024 5:09 AM EDT Unspecified atrial fibrillation (CMS/HCC V24, CMS/HCC V28) Essential (primary) hypertension Type 2 diabetes mellitus without complications (CMS/HCC V24, CMS/HCC V28) BASIC METABOLIC PANEL Routine 10/02/2024 5:09 AM EDT Unspecified atrial fibrillation (CMS/HCC V24, CMS/HCC V28) Essential (primary) hypertension Type 2 diabetes mellitus without complications ([facility] V24, [facility] V28) documented in this encounter Results * (ABNORMAL) Magnesium (10/02/2024 5:09 AM EDT) [facility] Magnesium 1.8(L) 1.9 - 2.6 mg/dL LAB CHEMISTRY METHOD 10/02/2024 2:12 PM EDT [facility] Blood Venous blood specimen / Unknown Venipuncture / Unknown 10/02/2024 5:09 AM EDT 10/02/2024 12:25 PM EDT us Robin Johnson MD LAB BLOOD ORDERABLES Final R esult [facility] [address] [place] [address], * (ABNORMAL) Basic metabolic panel (10/02/2024 5:09 AM EDT) [facility] Sodium 138 133 - 145 mmol/L LAB CHEMISTRY METHOD 10/02/2024 2:13 PM [facility] Potassium 3.3(L) 3.5 - 5.5 mmol/L LAB CHEMISTRY METHOD 10/02/2024 2:13 PM [facility] Chloride 100 96 - 110 mmol/L LAB CHEMISTRY METHOD 10/02/2024 2:13 PM [facility] CO2 28 21 - 32 mmol/L LAB CHEMISTRY METHOD 10/02/2024 2:13 PM [facility] Anion Gap 10 3 - 11 LAB CHEMISTRY METHOD 10/02/2024 2:13 PM [facility] Glucose 65(L) 70 - 100 mg/dL LAB CHEMISTRY METHOD 10/02/2024 2:13 PM [facility] BUN 17 5 - 25 mg/dL LAB CHEMISTRY METHOD 10/02/2024 2:13 PM EDT [facility] Creatinine 0.82 0.70 - 1.30 mg/dL LAB CHEMISTRY METHOD 10/02/2024 2:13 PM EDT [facility] eGFR 96 >=60 mL/min/1. 73m2 LAB CHEMISTRY METHOD 10/02/2024 2:13 PM EDT [facility] Comment:Calculation based on the??Chronic Kidney Disease Epidemiology Collaboration (CKD-EPI) equation refit??without adjustment for race. BUN/Creatinine Ratio 20.7 LAB CHEMISTRY METHOD 10/02/2024 2:13 PM EDT [facility] Calcium 9.2 8.5 - 10.5 mg/dL LAB CHEMISTRY METHOD 10/02/2024 2:13 PM EDT [facility] Blood Venous blood specimen / Unknown Venipuncture / Unknown 10/02/2024 5:09 AM EDT 10/02/2024 12:25 PM EDT us Robin Johnson MD LAB BLOOD ORDERABLES Final R esult [facility] [address] [place] [address], * (ABNORMAL) Complete blood count (10/02/2024 5:09 AM EDT) WBC 6.9 4.8 - 10.8 K/mcL LAB HEMETOLOGY METHOD 10/02/2024 1:28 PM EDT [facility] RBC 4.60 4.50 - 5.50 M/mcL LAB HEMETOLOGY METHOD 10/02/2024 1:28 PM EDT [facility] Hemoglobin 13.9 13.5 - 17.5 g/dL LAB HEMETOLOGY METHOD 10/02/2024 1:28 PM EDT [facility] Hematocrit 41.8(L) 42.0 - 54.0 % LAB HEMETOLOGY METHOD 10/02/2024 1:28 PM EDT [facility] MCV 91.7 79.0 - 98.0 FL LAB HEMETOLOGY METHOD 10/02/2024 1:28 PM EDT [facility] MCH 30.5 27.0 - 32.0 pcg LAB HEMETOLOGY METHOD 10/02/2024 1:28 PM EDT [facility] MCHC 33.3 32.0 - 37.0 g/dL LAB HEMETOLOGY METHOD 10/02/2024 1:28 PM EDT [facility] RDW 14.9 11.0 - 15.0 % LAB HEMETOLOGY METHOD 10/02/2024 1:28 PM EDT [facility] Platelets 144 130 - 400 K/mcL LAB HEMETOLOGY METHOD 10/02/2024 1:28 PM EDT [facility] MPV 11.5(H) 7.0 - 11.0 FL LAB HEMETOLOGY METHOD 10/02/2024 1:28 PM EDT [facility] NRBC 0.0 <1.0 % LAB HEMETOLOGY METHOD 10/02/2024 1:28 PM EDT [facility] NRBC Absolute 0.00 <0.10 K/mcL LAB HEMETOLOGY METHOD 10/02/2024 1:28 PM EDT [facility] Blood Venous blood specimen / Unknown Venipuncture / Unknown 10/02/2024 5:09 AM EDT 10/02/2024 12:25 PM EDT us Robin Johnson MD LAB BLOOD ORDERABLES Final R esult [facility] [address] [place] [address], documented in this encounter Visit Diagnoses Diagnosis Unspecified atrial fibrillation (CMS/HCC V24, CMS/HCC V28) Essential (primary) hypertension Unspecified essential hypertension Type 2 diabetes mellitus without complications ([facility] V24, [facility] V28) documented in this encounter Care Teams Vacuum Filter Operator Relationship Specialty Start Date End Date Robin Johnson MD [address] [place] [address] PCP - General Family Medicine 08/23/24 documented as of this encounter
--- OUTSIDE RECORDS SUMMARY | 2024-10-11 05:43 | XMS_ITS | Encounter Summary ---
Author Organization [employer] Address [address] [place] [address] Care Team Providers Care Rn Cvicu Name Role Phone Robin Johnson MD Primary Care Provider Encounter Details Date Type Department Care Team (Late st Contact Info) Description 10/04/2024 Lab Requisition [facility] - Main Lab [address] [place] [address] Robin Johnson MD [address] [place] [address] Hypo-osmolality and hyponatremia Social History Tobacco Use Types Packs/Day Years [...] 10/05/2024 5:24 AM EDT Hypo-osmolality and hyponatremia documented in this encounter Results * (ABNORMAL) Magnesium (10/05/2024 5:24 AM EDT) Magnesium 1.6(L) 1.9 - 2.6 mg/dL LAB CHEMISTRY METHOD 10/05/2024 9:45 AM EDT [facility] Blood Venous blood specimen / Unknown Venipuncture / Unknown 10/05/2024 5:24 AM EDT 10/05/2024 9:09 AM EDT Robin Johnson MD LAB BLOOD ORDERABLES Final R esult [facility] [address] [place] [address], * (ABNORMAL) Basic metabolic panel (10/05/2024 5:24 AM EDT) Sodium 140 133 - 145 mmol/L LAB CHEMISTRY METHOD 10/05/2024 9:[address] [facility] Potassium 3.3(L) 3.5 - 5.5 mmol/L LAB CHEMISTRY METHOD 10/05/2024 9:[address] [facility] Chloride 99 96 - 110 mmol/L LAB CHEMISTRY METHOD 10/05/2024 9:[address] [facility] CO2 31 21 - 32 mmol/L LAB CHEMISTRY METHOD 10/05/2024 9:[address] [facility] Anion Gap 10 3 - 11 LAB CHEMISTRY METHOD 10/05/2024 9:[address] [facility] Glucose 71 70 - 100 mg/dL LAB CHEMISTRY METHOD 10/05/2024 9:[address] [facility] BUN 17 5 - 25 mg/dL LAB CHEMISTRY METHOD 10/05/2024 9:[address] [facility] Creatinine 0.87 0.70 - 1.30 mg/dL LAB CHEMISTRY METHOD 10/05/2024 9:[address] [facility] eGFR 94 >=60 mL/min/1. 73m2 LAB CHEMISTRY METHOD 10/05/2024 9:[address] [facility] Comment:Calculation based on the??Chronic Kidney Disease Epidemiology Collaboration (CKD-EPI) equation refit??without adjustment for race. BUN/Creatinine Ratio 19.5 LAB CHEMISTRY METHOD 10/05/2024 9:[address] [facility] Calcium 9.2 8.5 - 10.5 mg/dL LAB CHEMISTRY METHOD 10/05/2024 9:45 AM EDT [facility] Blood Venous blood specimen / Unknown Venipuncture / Unknown 10/05/2024 5:24 AM EDT 10/05/2024 9:09 AM EDT us Robin Johnson MD LAB BLOOD ORDERABLES Final R esult [facility] [address] [place] [address], documented in this encounter Visit Diagnoses Diagnosis Hypo-osmolality and hyponatremia documented in this encounter Care Teams Rn Cvicu Relationship Specialty Start Date End Date Robin Johnson MD [address] [place] [address] PCP - General Family Medicine 08/23/24 documented as of this encounter
[2024-10-11 06:33] LABS: Appearance Urine Clear; Color Urine Yellow; Glucose Urine UA Negative (Negative); Leukocyte Esterase Urine Negative (Negative); Nitrite Urine Negative (Negative); Specific Gravity - Urine 1.015 (1.005-1.025); Urine Blood Negative (Negative); Urine Ketones Negative (Negative); Urine Protein Negative (Neg-Trace)
[2024-10-11 08:03] LABS: Troponin-I High Sensitivity 2.7 ng/L (<3.5-35.0)
== END 2024-10-11 08:51 ==
PROVIDERS: Emergency Provider Emergency Medicine; PCP Emergency Medicine
DX: I95.9 Hypotension, unspecified (principal); R07.9 Chest pain, unspecified; I50.9 Heart failure, unspecified; E11.22 Type 2 diabetes mellitus with diabetic chronic kidney disease; N18.6 End stage renal disease; J44.9 Chronic obstructive pulmonary disease, unspecified; Z03.818 Encounter for observation for suspected exposure to other biological agents ruled out
CPT/HCPCS: 0241U; 36415; 71045; 80048; 80076; 81003; 83605; 83690; 83880; 84484; 85025; 87040; 93005; 96360; 96361; 99284; 99285

== ENCOUNTER → 2024-10-11 04:16 | Outpatient (BNV) | payer MEDICARE, MEDICAID, SELFPAY | PROVIDERS: Emergency Provider Emergency Medicine; PCP Emergency Medicine; Visit Provider Radiology Diagnostic Radiology | DX: I95.9 Hypotension, unspecified (principal) | CPT/HCPCS: 71045 ==

== ENCOUNTER → 2024-10-11 04:16 | Outpatient (BNV) | payer MEDICARE, MEDICAID, SELFPAY | PROVIDERS: Emergency Provider Emergency Medicine; PCP Emergency Medicine; Visit Provider Internal Medicine | DX: I48.91 Unspecified atrial fibrillation (principal) | CPT/HCPCS: 93010 ==

== ENCOUNTER 2025-01-21 23:16 | Inpatient (IN) | payer MEDICARE, SELFPAY ==
--- NOTE | ~2025-01-21 | CT_ITS ---
CLINICAL HISTORY: Sepsis due due to UTI CT abdomen and pelvis without contrast Comparison: None provided Findings: Examination significantly limited and degraded by lack of intravenous contrast and significant motion artifact. Bilateral basilar opacities likely atelectasis. Minimal right pleural effusion. Previous sternotomy. Cardiomegaly. Coronary artery disease. The gallbladder is grossly within normal limits. No significant biliary ductal dilatation. Unenhanced liver and spleen demonstrate no definite significant focal abnormality. Possible minimal fluid versus artifact inferior aspect right hepatic lobe. Pancreas significantly fatty infiltrated. No definite significant adrenal abnormality. 2.7 cm right renal upper pole exophytic lesion possibly a cyst. Right renal calcifications likely vascular in nature. No ureteral stones and no hydronephrosis or hydroureter bilaterally. Bilateral nonspecific perinephric stranding. No bowel obstruction, pneumoperitoneum, or pneumatosis. Appendix not visualized. No definite loculated fluid collection. No significant adenopathy. Atherosclerotic vascular disease with no aneurysm of the abdominal aorta. Fat containing umbilical hernia and small fat containing right inguinal hernia. Doan catheter in the urinary bladder with some air in the bladder. Prostate measures 4.8 cm x 3.9 cm. No definite acute osseous findings. IMPRESSION: 1. Significantly limited examination as described. 2. Likely artifactual but minimal free fluid at the tip of right hepatic lobe not excluded. 3. Bilateral basilar opacities likely atelectasis and minimal right pleural effusion. 4. Additional findings as described. This document has been electronically signed by: Ny Lua MD on 01/22/2025 19:33:52
--- NOTE | ~2025-01-21 | XR_ITS ---
CLINICAL HISTORY: Mental status change, fever 1 view chest x-ray Comparison: CR - XR CHEST 1V - 10/11/24 05:21 EDT Findings: Mild bibasilar atelectasis. No significant pleural effusion or pneumothorax. Similar prominent/enlarged cardiac silhouette. No acute fracture. Median sternotomy wires and clips. IMPRESSION: Mild bibasilar atelectasis. This document has been electronically signed by: Jose Lopez MD on 01/22/2025 01:09:05
--- NOTE | 2025-01-21 23:26 | ED.GENADULT ---
HPI - General Adult General Chief complaint: Altered Mental Status Stated complaint: lethargic / fever / tachy Time Seen by Provider: 01/21/25 23:26 Source: EMS, RN notes reviewed and old records reviewed Mode of arrival: EMS Limitations: altered mental status History of Present Illness ED Provider: DR. 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 Resident at [facility] sent for further evaluation of orthostatic hypotension at the [facility], patient is a poor historian at his baseline secondary to dementia unable to provide history. Patient with history of orthostatic hypotension. Patient was sent by EMS for evaluation of fever, becoming lethargic all day today, unable to obtain history from the patient secondary to decreased mental status. Related Data Allergies Allergy/AdvReac Type Severity Reaction Status Date / Time No Known Allergies Allergy Verified 01/21/25 23:31 Review of Systems Review of Systems: Yes Unobtainable due to mental status PMFSH Social History Social History Advance Directives: No Advance Directives Information Provided: No Advance Directives on File: No Do you have a plan to hurt others: No Plan Physical Exam ED Vital Signs: Vital Signs - 24 hr 01/21/25 23:28 01/21/25 23:47 01/21/25 23:51 Temperature 102.4 F H 102.6 F H Pulse Rate 140 H 136 H 120 H Respiratory Rate 18 19 19 Blood Pressure 111/75 113/78 Pulse Oximetry 99 95 92 Oxygen Delivery Method Room Air Room Air Room Air Oxygen Flow Rate 01/22/25 00:00 01/22/25 00:23 01/22/25 00:31 Temperature 102.0 F H 101.5 F H 101.5 F H Pulse Rate 127 H 122 H 114 H Respiratory Rate 19 19 19 Blood Pressure 123/78 106/70 107/56 L Pulse Oximetry 92 92 92 Oxygen Delivery Method Room Air Room Air Room Air Oxygen Flow Rate 01/22/25 00:57 Temperature 100.9 F H Pulse Rate 94 Respiratory Rate 18 Blood Pressure Pulse Oximetry 95 Oxygen Delivery Method Nasal Cannula Oxygen Flow Rate 1 BMI result Body Mass Index 30.3 Course Reevaluation(s) Reevaluation #1: Sepsis secondary to UTI. Received 500 cc normal saline/1 g of ceftriaxone IV. Old AFib at 140 bpm, improved with IV Tylenol and lowering body temperature. Heart rate now is 107. Abdominal exam shows no tenderness no further imaging is required at this point. Admit the patient for further management of UTI and sepsis. Time: 00:48 Medications Administered Generic Name Dose Route Start Last Admin Trade Name Freq PRN Reason Stop Dose Admin Lactated Ringer's 1,000 mls @ 500 mls/hr 01/21/25 23:45 01/22/25 00:16 Lr IV 01/22/25 01:44 Infused .Q2H KELI Infusion Discontinued Medications Generic Name Dose Route Start Last Admin Trade Name Freq PRN Reason Stop Dose Admin Ceftriaxone Sodium 1 gm 01/21/25 23:32 01/21/25 23:42 Ceftriaxone Sodium 1 Gm Vial IVPUSH 01/21/25 23:33 1 gm ONCE ONE Administration Acetaminophen 1,000 mg in 100 mls @ 400 mls/hr 01/21/25 23:32 01/22/25 00:09 Ofirmev IV 01/21/25 23:46 Infused ONCE ONE Infusion Medical Decision Making Differential Diagnosis Differential Diagnoses: The differential diagnosis associated with the presentation includes (UTI, pneumonia, pneumothorax, pleural effusion, viral upper respiratory infection, intra-abdominal infection, rapid AFib secondary to fever.) Admission/Observation Consideration of admission/observation: Escalation of care including admission/observation considered Consult Healthcare Provider Management of the patient was discussed with: Hospitalist (Dr. Artis) Lab Data MDM Lab Attestation statement: I reviewed the patient's lab results. 01/21/25 23:35 01/21/25 23:35 Labs: Lab Results 01/21/25 01/21/25 01/22/25 Range/Units 23:35 23:39 00:02 WBC 17.1 H (4.8-10.8) X10*3/uL RBC 3.77 L (4.60-5.80) X10*6/uL Hgb 12.6 L (14.0-18.0) g/dl Hct 35.6 L (42.0-52.0) % MCV 94.4 (80.0-98.0) fL MCH 33.4 H (27.0-33.0) pg MCHC 35.4 (31.0-36.0) g/dl RDW 14.6 (11.0-16.0) % Plt Count 89 L (160-400) X10*3/uL MPV 10.6 (9.4-12.4) fL Immature Gran % (Auto) 0.6 H (0.0-0.4) % Neut % (Auto) 86.1 H (45-73) % Lymph % (Auto) 4.4 L (20-40) % [place] % (Auto) 8.7 (2-11) % Eos % (Auto) 0.0 (0-4) % Baso % (Auto) 0.2 (0-2) % Lymph # (Auto) 0.8 L (1.2-4.9) X10*3/uL [place] # (Auto) 1.5 H (0.1-1.2) X10*3/uL Eos # (Auto) 0.0 (0.0-0.4) X10*3/uL Baso # (Auto) 0.0 (0.0-0.2) X10*3/uL Abs Immat Gran (auto) 0.11 H (0.00-0.03) X10*3/uL Absolute Neuts (auto) 14.8 H (2.0-8.3) x10*3/uL Absolute Nucleated RBC 0.000 (0.0-0.012) X10*3/uL Nucleated RBC % (auto) 0.0 (0.0-0.2) /100WBC Sodium 137 (135-145) mmol/L Potassium 3.7 (3.3-5.1) mmol/L Chloride 103 (96-108) mmol/L Carbon Dioxide 24 (22-29) mmol/L Anion Gap 14 (12-20) BUN 10 (9-16) mg/dL Creatinine 0.70 (0.5-1.4) mg/dL Estim Creat Clear Calc 122.6 Estimated GFR > 60 Random Glucose 117 H (60-115) mg/dL Lactic Acid 2.7 H* (0.5-2.0) mmol/L Calcium 8.8 (8.4-10.2) mg/dL Total Bilirubin 0.9 (0.0-1.0) mg/dL Direct Bilirubin 0.4 (0.0-0.5) mg/dL AST 33 (5-37) U/L ALT 27 (0-40) U/L Alkaline Phosphatase 66 (39-117) U/L Troponin I High Sens 15.5 D (<3.5-35.0) ng/L B-Natriuretic Peptide 301 H (<100) pg/mL Total Protein 6.4 L (6.5-8.0) g/dL Albumin 3.6 (3.5-5.0) g/dL Lipase 4 L (8-78) U/L Urine Color Dark Yellow Urine Appearance Clear Urine pH >= 9.0 (5.0-9.0) Ur Specific [place] 1.020 (1.005-1.025) Urine Protein 30 (1+) H (Neg-Trace) mg/dL Urine Glucose (UA) Negative (Negative) mg/dL Urine Ketones Trace (Negative) mg/dL Urine Blood Trace H (Negative) Urine Nitrite Positive H (Negative) Ur Leukocyte Esterase Moderate (2+) H (Negative) Urine RBC 0-2 (0-2) /HPF Urine WBC 6-10 (0-5) /HPF Ur Squamous Epith Cells 0-2 (0-2) /HPF Other Crystals Present Urine Bacteria 4+ (None Seen) Hyaline Casts 0-2 (0-2) /LPF COVID-19 (CRISTOBAL) Negative (Negative) COVID-19 Clin Com See Note Influenza Type A (PCR) NEGATIVE (Negative) Influenza Type B (PCR) NEGATIVE (Negative) RSV RNA Qual (PCR) NEGATIVE (Negative) SARS-CoV-2 RNA (RT-PCR) NEGATIVE (Negative) Independent Interpretation I performed an independent interpretation of an: Plain X-Ray (Chest:Mild bibasilar atelectasis. No significant pleural effusion or pneumothorax. Similar prominent/enlarged cardiac silhouette. No acute fracture.) Radiology Impression Discussion of test interpretation with radiology: I have reviewed the radiologist's reading. Critical Care Time Critical Care Time Critical Care Time: Yes Total Critical Care Time: 60 Attestation: The patient was critically ill with a high probability of imminent or life-threatening deterioration. I spent greater than 30 minutes of discontinuous time evaluating the patient, delivering critical care at the bedside, discussing evaluating data with consultants. Critical care time does not include time spent performing separately billable procedures or teaching. Time spent performing critical care was 60 minutes. Discharge Plan Discharge Clinical Impression: Altered mental status, Acute UTI Sepsis Qualifiers: Sepsis type: sepsis due to unspecified organism Sepsis acute organ dysfunction status: unspecified Qualified Code(s): A41.9 - Sepsis, unspecified organism Patient Disposition: Admitted As Inpatient Print Language: Marshallese
[2025-01-21 23:28] VITALS: BP 90/52; PULSE 140; RESP 18; O2SAT 90; O2SAT 99; BMI 30.3
--- NOTE | 2025-01-21 23:31 | ECG_ITS ---
Test Reason : SEPSIS Blood Pressure : */* mmHG Vent. Rate : 110 BPM Atrial Rate : * BPM P-R Int : * ms QRS Dur : 98 ms QT Int : 338 ms P-R-T Axes : * -9 130 degrees QTcB Int : 457 ms Atrial fibrillation with rapid ventricular response Nonspecific ST and T wave abnormality Abnormal ECG When compared with ECG of 11-Oct-2024 04:24, No significant change was found Referred By: Yash Ascencio Electronically Signed By: KOKI MARCANO
--- NOTE | 2025-01-21 23:40 | PC.NURSE ---
[facility], alert to painful stimuli only. per ems, staff states pt had fever of 104 at 3pm and pt was altered since. per staff, they administered tylenol at 6pm and pt condition did not improve. on arrival, pt not responding to verbal stimulus, pt hot to touch, tachycardic 130-140. at bedside and sepsis alert called. 20g placed in left ac and 20g in right forearm. labs obtained. pt medicated per aug and fluids administering.
[2025-01-21 23:45] LABS: MANUAL DIFF FLAG NO
[2025-01-21 23:47] VITALS: BP 111/75; PULSE 136; RESP 19; TEMP 39.1; O2SAT 95
[2025-01-21] MEDS: Lactated Ringers 1,000 ML 500 ML IV (23:49)
[2025-01-21 23:51] VITALS: BP 113/78; PULSE 120; RESP 19; TEMP 39.2; O2SAT 92
[2025-01-21 23:52] LABS: Hematocrit 35.6 % (42.0-52.0); Hemoglobin 12.6 g/dl (14.0-18.0); Imm Gran Abs Auto 0.11 X10*3/uL (0.00-0.03); Imm Gran Pct Auto 0.6 % (0.0-0.4); Lymphocytes Absolute Auto 0.8 X10*3/uL (1.2-4.9); Mean Corpuscular HGB Conc 35.4 g/dl (31.0-36.0); Mean Corpuscular Hemoglobin 33.4 pg (27.0-33.0); Mean Corpuscular Volume 94.4 fL (80.0-98.0); NRBC Abs Auto 0.000 X10*3/uL (0.0-0.012); NRBC Pct Auto 0.0 /100WBC (0.0-0.2); Red Blood Count 3.77 X10*6/uL (4.60-5.80); White Blood Count 17.1 X10*3/uL (4.8-10.8)
[2025-01-21 23:53] LABS: Platelet Count 89 X10*3/uL (160-400)
[2025-01-22] VITALS (23 sets, daily range): BP systolic 91–192; BP diastolic 42–136; PULSE 83–168; RESP 10–23; TEMP 36.1–38.9; O2SAT 80–100; BMI 29.4
[2025-01-22] LABS: Alanine Aminotransferase 27 U/L (0-40); Albumin Level 3.6 g/dL (3.5-5.0); Alkaline Phosphatase 66 U/L (39-117); Anion Gap 14 (12-20); Aspartate Amino Transferase 33 U/L (5-37); Blood Urea Nitrogen 10 mg/dL (9-16); Calcium 8.8 mg/dL (8.4-10.2); Carbon Dioxide 24 mmol/L (22-29); Chloride 103 mmol/L (96-108); Creatinine Clr Calc Pharmacy 122.6; Estimated Glomerular Filt Rate > 60; Lipase 4 U/L (8-78); Potassium 3.7 mmol/L (3.3-5.1); Sodium 137 mmol/L (135-145); Total Protein 6.4 g/dL (6.5-8.0)
--- NOTE | 2025-01-22 | ECG_ITS ---
Test Reason : SEPSIS Blood Pressure : */* mmHG Vent. Rate : 161 BPM Atrial Rate : * BPM P-R Int : * ms QRS Dur : 92 ms QT Int : 268 ms P-R-T Axes : * -21 144 degrees QTcB Int : 438 ms Atrial fibrillation with rapid ventricular response ST depression jameson lateral leads Abnormal ECG When compared with ECG of 21-Jan-2025 23:50, ST now depressed in Anterior leads T wave inversion now evident in Anterior leads Referred By: Olivia Cooley Electronically Signed By: KOKI MARCANO
[2025-01-22 00:02] LABS: COVID-19 Test Negative (Negative); IDNOW Serial# 55D5AD1C
[2025-01-22 00:04] LABS: B Type Natriuretic Peptide 301 pg/mL (<100)
[2025-01-22 00:08] LABS: Troponin-I High Sensitivity 15.5 ng/L (<3.5-35.0)
[2025-01-22 00:19] LABS: Appearance Urine Clear; Glucose Urine UA Negative (Negative); PH >= 9.0 (5.0-9.0); Specific Gravity - Urine 1.020 (1.005-1.025); UMIC TRIGGER UACC YES
--- NOTE | 2025-01-22 00:21 | PC.NURSE ---
straight cath preformed at this time, pt tolerated well, 200ml of foul yellow urine voided
[2025-01-22 00:25] LABS: Resp Syncy Virus RNA Qual PCR NEGATIVE (Negative); SARS COV2 PCR INHOUSE NEGATIVE (Negative)
[2025-01-22 00:28] LABS: Other Crystals Urine Present; UACC Culture Trigger YES
--- NOTE | 2025-01-22 00:54 | P.HPHOSP_ITS ---
History of Present Illness Date of Service: 01/22/25 Attending physician on admission: Rory Artis Chief Complaint: sepsis Pt is a 69 yo male residing at [facility] unable to provide HPI/PMH/PSH due to illness/ somnolence/sepsis secondary to UTI. Records from [facility] note pt's current PMH to include DMII, CAD, CABD, AFIB not on AC, Aortic Stenosis, OA, Vascular Dementia, Schizoaffective D/O (no guardian per paperwork), JEREMIAS, Chronic ITP, RADHA, Macular Degeneration presents to ED BIBA after pt developed temp 104 at 3PM and nurse asset protection specialist was notified. Pt received tylenol but with increasing AMS, and 911 was eventually called. Pt arrived somnolent, febrile 102.4. Leukocytosis of 17. LA 2.7.UA positive for UTI. Pt in AFIB, rate iniitally 114. Pt met criteria for sepsis and protocol followed in ED. CXR noted Bibasillar atelectasis. Pt NPO currently. Pt started on ceftriaxone IVP. BNP 301, pt so far tolerating fluids and has not experienced hypoxia. Temp down to 100.9. VBG pending. Paperwork from [facility] does not detail pt's advance directives. Pt admitted as full code. Pt does not have guardian listed or contact information. Review of Systems 2 Review of Systems: Yes Unobtainable due to mental condition COUNT INCLUDES THE [facility] Medical History Cataracts, both eyes Macular degeneration MRSA (methicillin resistant staph aureus) culture positive Tracheostomy in place Chronic ITP (idiopathic thrombocytopenia) RADHA (iron deficiency anemia) Vascular dementia Schizoaffective disorder Osteoarthritis JEREMIAS (obstructive sleep apnea) Diabetes 1.5, managed as type 2 PVD (peripheral vascular disease) CHF (congestive heart failure) Aortic stenosis CABG (coronary artery bypass graft) planned CAD (coronary artery disease) Afib Cognitive capacity: somnolent Functional capacity: uses cane/walker Pertinent family history: unable to provide Social History Patient Tobacco Use Status: Never used Tobacco Advance Directives: No Advance Directives Information Provided: No Advance Directives on File: No Do you have a plan to hurt others: No Plan Nutrition Risks: No Nutritional Risk Ebola Risk: Travel/Contact With Anyone From Affected Area/s: No Has Patient Experienced Ebola Symptoms: No Meds Allergies Allergy/AdvReac Type Severity Reaction Status Date / Time No Known Allergies Allergy Verified 01/21/25 23:31 Active Medications: Current Medications Acetaminophen (Acetaminophen 325 Mg Tablet) 650 mg PO Q6H PRN PRN Reason: Pain, Mild 1-3,fever,headache Albuterol/Ipratropium (Albuterol/Iprat 2.5/0.5mg 3 Ml Ampul.Neb) 3 ml INHALE Q4H PRN PRN Reason: Shortness of Breath/Wheezing Calcium Carbonate (Calcium Carbonate 750 Mg Tab.Chew) 750 mg PO Q4H PRN PRN Reason: Heartburn Ceftriaxone Sodium (Ceftriaxone Sodium 1 Gm Vial) 1 gm IVPUSH Q24H KELI Lactated Ringer's (Lr) 1,000 mls @ 500 mls/hr IV .Q2H KELI Stop: 01/22/25 01:44 Last Infusion: 01/22/25 00:16 Dose: Infused Magnesium Hydroxide (Milk Of Magnesia 30 Ml Oral.Susp) 30 ml PO DAILY PRN PRN Reason: Constipation Melatonin (Melatonin 3 Mg Tablet) 6 mg PO BEDTIME PRN PRN Reason: Insomnia Ondansetron HCl (Ondansetron Hcl 4 Mg/2 Ml Vial) 4 mg IVPUSH Q8H PRN PRN Reason: Nausea and Vomiting Polyethylene Glycol (Polyethylene Glycol 3350 17 Gm Powd.Pack) 17 gm PO DAILY PRN PRN Reason: Constipation Senna (Sennosides 8.6 Mg Tablet) 17.2 mg PO BEDTIME KELI Sodium Chloride (0.9 % Sodium Chloride Flush 3 Ml Syringe) 3 ml IVFLUSH QSHIFT [facility] Physical Exam 2 Vital Signs and Narrative: Vital Signs: Last Vital Signs Temp 101.5 F H 01/22/25 00:31 Pulse 114 H 01/22/25 00:31 Resp 19 01/22/25 00:31 BP 107/56 L 01/22/25 00:31 Pulse Ox 92 01/22/25 00:31 O2 Del Method Room Air 01/22/25 00:31 BMI result Body Mass Index 30.3 Somnolent, cheeks red Neuro: unable to assess HEENT: sclera nonicteric, oral mucosa moist, normocephalic, atraumataic, PERRLA Resp: lungs diminshed B, RR 20 no accessory muscles in use Cardiac: Irregular 104, no murmur, no JVD, no edema BLEs ABD: soft, nontender, active bowel sounds throughout MSK: unanle to assess strength Skin: intact Results Labs 01/22/25 04:19 01/22/25 04:19 Labs: Laboratory Results - last 24 hr 01/21/25 01/21/25 01/22/25 23:35 23:39 00:02 MCV 94.4 MCH 33.4 H MCHC 35.4 RDW 14.6 Plt Count 89 L MPV 10.6 Immature Gran % (Auto) 0.6 H Neut % (Auto) 86.1 H Lymph % (Auto) 4.4 L [place] % (Auto) 8.7 Eos % (Auto) 0.0 Baso % (Auto) 0.2 Lymph # (Auto) 0.8 L [place] # (Auto) 1.5 H Eos # (Auto) 0.0 Baso # (Auto) 0.0 Abs Immat Gran (auto) 0.11 H Absolute Neuts (auto) 14.8 H Absolute Nucleated RBC 0.000 Nucleated RBC % (auto) 0.0 Anion Gap 14 Estim Creat Clear Calc 122.6 Estimated GFR > 60 Random Glucose 117 H Lactic Acid 2.7 H* Calcium 8.8 Total Bilirubin 0.9 Direct Bilirubin 0.4 AST 33 ALT 27 Alkaline Phosphatase 66 B-Natriuretic Peptide 301 H Total Protein 6.4 L Albumin 3.6 Lipase 4 L Urine Color Dark Yellow Urine Appearance Clear Urine pH >= 9.0 Ur Specific [place] 1.020 Urine Protein 30 (1+) H Urine Glucose (UA) Negative Urine Ketones Trace Urine Blood Trace H Urine Nitrite Positive H Ur Leukocyte Esterase Moderate (2+) H Urine RBC 0-2 Urine WBC 6-10 Ur Squamous Epith Cells 0-2 Other Crystals Present Urine Bacteria 4+ Hyaline Casts 0-2 COVID-19 (CRISTOBAL) Negative COVID-19 Clin Com See Note Influenza Type A (PCR) NEGATIVE Influenza Type B (PCR) NEGATIVE RSV RNA Qual (PCR) NEGATIVE SARS-CoV-2 RNA (RT-PCR) NEGATIVE ECG Attestation: I personally reviewed and interpreted this ECG as follows: (AFIB RVR ) Prior ECG tracings: available for review Imaging Radiologist's Impressions: CXR B Basillar Atelectasis Assessment and Plan (1) Sepsis: Qualifiers: Sepsis acute organ dysfunction status: unspecified Sepsis type: sepsis due to unspecified organism Qualified Code(s): A41.9 - Sepsis, unspecified organism Status: Acute Plan Pt is a 69 yo male residing at [facility] unable to provide HPI/PMH/PSH due to illness/ somnolence/sepsis secondary to UTI. Records from [facility] note pt's current PMH to include DMII, CAD, CABD, AFIB not on AC, Aortic Stenosis, OA, Vascular Dementia, Schizoaffective D/O (no guardian per paperwork), JEREMIAS, hypotension on midodrine, Chronic ITP, RADHA, Macular Degeneration presents to ED BIBA after pt developed temp 104 at 3PM and nurse asset protection specialist was notified. Pt overall did not improve and EMS was called. Pt max temp 104 at [facility]. Pt arrived in AFIB RVR, HR coming down with decrease in fever. UA positive. Pt being admitted with sepsis secondary to UTI. CXR negative for PNA. Sepsis secondary to UTI Pt started on Sepsis protocol in ED Ceftriaxone started 1 GM Daily Continue IVF, 0.9 NS at 100 mls per hour UA ph > 9.0, possible proteus? Follow BC X2, Urine CUlture NPO as pt is not able to protect airway due to illness Ofirmev for temp as pt cannot take po medications currently due to level of somnolence/ Ice packs Telemetry VBG 7.48, 37, 87, 28, 98, no oxygen required initially, 0052, 1L applied (HX of JEREMIAS) Repeat LA due 0230, 2.7 on admisison, pt did receive fluid resuscitation AMS/ somnolence Likely due to sepsis, UTI BG 107 mg/dL Pt is resting comfortably, not responsive to external stimuli VBG as above reassuring, no indication for noninvasive or mechanical ventialtion HEAD CT if no improvement AFIB RVR Hx of chronic AFIB, not on anticoagulation likely due to fall risk and chronic ITP HR 104 with decrease in temp Telemetry WIll ensure MG and TSH are WNL DMII SSI for NPO status Chronic ITP PLTs 89K No lovenox due to PLT count No obvious evidence of spontaneous Bleeding H/H stable Monitor CBC DVT prophylaxis: contraindicated due to PLT CT 89K MED REC PENDING FULL CODE Quality Stroke Does the patient have a stroke diagnosis?: No Reason for No Anti-thrombotic by Day Two: N/A - Med Ordered VTE Prior VTE?: No VTE Risk Level:: Medical - moderate - high VTE Device Contraindication: N/A - Device Ordered VTE Drug Contraindication: N/A - Med Ordered
--- NOTE | 2025-01-22 00:55 | PC.NURSE ---
pt stating at 88% room air, placed on 1 L and 02 at 93%, will monitor, Dr Ascencio aware and order placed.
--- NOTE | 2025-01-22 01:30 | PC.NURSE ---
no insulin given as pt POC was 106 an s newly NPO until tomorrow. ns running at 100.
[2025-01-22 01:32] LABS: Glucose, Whole Blood 107 mg/dL (60-115)
[2025-01-22 01:36] LABS: VBG HCO3 28 mmol/L (22-26); VBG O2 % Saturation 98.0 %
[2025-01-22 01:38] LABS: Venous Blood Gas Refer to POC result
[2025-01-22 01:43] LABS: Reflex Lactate? Lactic Acid Added
[2025-01-22 02:17] LABS: Magnesium 1.6 mg/dL (1.6-2.6)
[2025-01-22 02:24] LABS: ~Lactic Acid-LAB USE ONLY 2.0 mmol/L (0.5-2.0)
[2025-01-22 02:31] LABS: Free T4 (Free Thyroxine) 0.87 ng/dL (0.71-1.85); Thyroid Stimulating Hormone 0.46 uIU/mL (0.32-4.0)
[2025-01-22] MEDS: Acetaminophen Supp 650 MG SUPP.RECT PR (04:42)
--- NOTE | 2025-01-22 04:45 | PM.EVENT ---
Event Note Date of Service: 01/22/25 Event Note: Report by nursing that pt incontinent of copious amounts of foul smelling urine, likely was retaining. Increase in temp noted to 100.6 and pt experiencing chills but verbal with moaning. HR 155, ECG AFIB RVR. Doan ordered and placed with cloudy yellow urine obtained. Tylenol suppository rdered. ICE packs applied indireclty off skin. Valium 5 mg IV X1 as pt is also mildly agitated. Metoprolol 2.5 mg IV Q6H prn for HR > 100 but BP must be greater than 11o systolic prior to giving. BP currently 129/91. Increasing Ceftriaxone to 2 GMS Q24 hours. Time Spent With Patient Time: Total time managing care of this patient today ____ minutes.
[2025-01-22] MEDS: diazePAM 10 MG/2 ML CARTRIDGE 5 MG IVPUSH ×2 (04:47→20:46)
--- NOTE | 2025-01-22 04:48 | PC.NURSE ---
pt noted to be febrile, tachycardic and agitated. Olivia SANITARY INSPECTOR called to bedside. ekg obtained. temp sensing cody placed per provider order at this time, as pt is retaining urine. pt medicated per aug, and ice packs placed on skin
[2025-01-22 04:49] LABS: MANUAL DIFF FLAG NO
[2025-01-22 04:57] LABS: Hematocrit 37.9 % (42.0-52.0); Hemoglobin 12.9 g/dl (14.0-18.0); Imm Gran Abs Auto 0.53 X10*3/uL (0.00-0.03); Imm Gran Pct Auto 2.4 % (0.0-0.4); Lymphocytes Absolute Auto 2.4 X10*3/uL (1.2-4.9); Mean Corpuscular HGB Conc 34.0 g/dl (31.0-36.0); Mean Corpuscular Hemoglobin 32.8 pg (27.0-33.0); Mean Corpuscular Volume 96.4 fL (80.0-98.0); NRBC Abs Auto 0.000 X10*3/uL (0.0-0.012); NRBC Pct Auto 0.0 /100WBC (0.0-0.2); Red Blood Count 3.93 X10*6/uL (4.60-5.80); White Blood Count 21.9 X10*3/uL (4.8-10.8)
[2025-01-22 05:05] LABS: Platelet Count 80 X10*3/uL (160-400)
[2025-01-22 05:09] LABS: Anion Gap 19 (12-20); Blood Urea Nitrogen 10 mg/dL (9-16); Calcium 8.6 mg/dL (8.4-10.2); Carbon Dioxide 18 mmol/L (22-29); Chloride 106 mmol/L (96-108); Creatinine Clr Calc Pharmacy 120.8; Estimated Glomerular Filt Rate > 60; Potassium 5.0 mmol/L (3.3-5.1); Sodium 138 mmol/L (135-145)
--- NOTE | 2025-01-22 05:49 | PC.NURSE ---
pt noted to be febrile at this time, core temp 101. robyn NAIL MAKING MACHINE TENDER contacted via [employer] connect, orders for cooling blanket placed. cooling blanket placed on pt at this time, pt tolerating well
[2025-01-22 07:38] LABS: Glucose, Whole Blood 91 mg/dL (60-115)
--- NOTE | 2025-01-22 07:43 | PC.NURSE ---
Per Dr. Cotto turn off cooling blanket temperature 98.4 via temp sensing glo.
--- NOTE | 2025-01-22 08:15 | ECG_ITS ---
Test Reason : arrythymia Blood Pressure : */* mmHG Vent. Rate : 163 BPM Atrial Rate : * BPM P-R Int : * ms QRS Dur : 88 ms QT Int : 324 ms P-R-T Axes : * 204 49 degrees QTcB Int : 533 ms Artifact in tracing Suspect limb lead reversal, interpretation assumes no reversal Atrial fibrillation with rapid ventricular response Abnormal ECG When compared with ECG of 22-Jan-2025 04:25, ST no longer depressed in Lateral leads T wave inversion no longer evident in Anterior leads Referred By: Al Cotto Electronically Signed By: KOKI MARCANO
--- NOTE | 2025-01-22 09:52 | HO.PM.IMPN ---
Subjective Subjective Date of Service: 01/22/25 Interval History: Seen in follow up for sepsis, UTI, metabolic encephalopathy temp has come down with cooling blanket has been in AFIB with RVR Physical Exam Exam: Exam: Somnolent, earlier, more awake, and shivering ask to stop cooling blanket Neuro: unable to assess HEENT: sclera nonicteric, oral mucosa moist, normocephalic, atraumataic, PERRLA Resp: lungs diminshed B, RR 20 no accessory muscles in use Cardiac: Irregular 104, no murmur, no JVD, no edema BLEs ABD: soft, nontender, active bowel sounds throughout MSK: unanle to assess strength Skin: intact Vital Signs: Vital Signs: Last Vital Signs Temp 99.1 F 01/22/25 09:35 Pulse 102 H 01/22/25 09:35 Resp 18 01/22/25 09:35 BP 101/47 L 01/22/25 09:35 Pulse Ox 97 01/22/25 09:35 O2 Del Method Nasal Cannula 01/22/25 09:35 O2 Flow Rate 1 01/22/25 09:35 BMI result Body Mass Index 30.3 Objective Data Active Medications Acetaminophen (Acetaminophen 325 Mg Tablet) 650 mg PO Q6H PRN PRN Reason: Pain, Mild 1-3,fever,headache Albuterol/Ipratropium (Albuterol/Iprat 2.5/0.5mg 3 Ml Ampul.Neb) 3 ml INHALE Q4H PRN PRN Reason: Shortness of Breath/Wheezing Calcium Carbonate (Calcium Carbonate 750 Mg Tab.Chew) 750 mg PO Q4H PRN PRN Reason: Heartburn Ceftriaxone Sodium (Ceftriaxone Sodium 2 Gm Vial) 2 gm IVPUSH Q24H KELI Dextrose (Dextrose 50 % 25 Gm/50 Ml Syringe) 25 gm IVPUSH Q15M PRN; Protocol PRN Reason: per Hypoglycemia Standing Ord. Digoxin (Digoxin 0.5 Mg/2 Ml Ampul) 0.25 mg IVPUSH Q6H KELI; Protocol Stop: 01/22/25 15:01 Last Admin: 01/22/25 09:13 Dose: 0.25 mg Documented By: PAU Glucose (Glucose Gel 15 Gm Gel..Gram.) 15 gm PO Q15M PRN; Protocol PRN Reason: per Hypoglycemia Standing Ord. Sodium Chloride (Ns) 1,000 mls @ 100 mls/hr IVCONT .Q10H [facility] Last Admin: 01/22/25 01:24 Dose: 100 mls/hr Documented By: RAUL Insulin Human Lispro (Insulin Lispro 100 Unit/Ml 3 Ml Vial) 0 unit SUBCUT Q6H [facility]; Protocol Last Admin: 01/22/25 07:40 Dose: Not Given Documented By: PAU Non-Admin Reason: [id number] Magnesium Hydroxide (Milk Of Magnesia 30 Ml Oral.Susp) 30 ml PO DAILY PRN PRN Reason: Constipation Melatonin (Melatonin 3 Mg Tablet) 6 mg PO BEDTIME PRN PRN Reason: Insomnia Metoprolol Tartrate (Metoprolol Tartrate 5 Mg/5 Ml Vial) 2.5 mg IVPUSH Q6H PRN; Protocol PRN Reason: Heart Rate >100 Ondansetron HCl (Ondansetron Hcl 4 Mg/2 Ml Vial) 4 mg IVPUSH Q8H PRN PRN Reason: Nausea and Vomiting Polyethylene Glycol (Polyethylene Glycol 3350 17 Gm Powd.Pack) 17 gm PO DAILY PRN PRN Reason: Constipation Senna (Sennosides 8.6 Mg Tablet) 17.2 mg PO BEDTIME [facility] Sodium Chloride (0.9 % Sodium Chloride Flush 3 Ml Syringe) 3 ml IVFLUSH QSHIFT [facility] Last Admin: 01/22/25 07:40 Dose: Not Given Documented By: PAU Non-Admin Reason: IV Running Labs 01/22/25 04:19 01/22/25 04:19 Labs: Laboratory Results - last 24 hr 01/21/25 01/21/25 01/22/25 23:35 23:39 00:02 MCV 94.4 MCH 33.4 H MCHC 35.4 RDW 14.6 Plt Count 89 L MPV 10.6 Immature Gran % (Auto) 0.6 H Neut % (Auto) 86.1 H Lymph % (Auto) 4.4 L Stewart % (Auto) 8.7 Eos % (Auto) 0.0 Baso % (Auto) 0.2 Lymph # (Auto) 0.8 L [place] # (Auto) 1.5 H Eos # (Auto) 0.0 Baso # (Auto) 0.0 Abs Immat Gran (auto) 0.11 H Absolute Neuts (auto) 14.8 H Absolute Nucleated RBC 0.000 Nucleated RBC % (auto) 0.0 VBG pH VBG pCO2 VBG pO2 VBG HCO3 VBG O2 Saturation VBG Base Excess Anion Gap 14 Estim Creat Clear Calc 122.6 Estimated GFR > 60 POC Glucose Random Glucose 117 H Lactic Acid 2.7 H* Lactic Acid F/U @ 2Hr Calcium 8.8 Magnesium Total Bilirubin 0.9 Direct Bilirubin 0.4 AST 33 ALT 27 Alkaline Phosphatase 66 B-Natriuretic Peptide 301 H Total Protein 6.4 L Albumin 3.6 Lipase 4 L TSH Free T4 Random Cortisol Urine Color Dark Yellow Urine Appearance Clear Urine pH >= 9.0 Ur Specific [place] 1.020 Urine Protein 30 (1+) H Urine Glucose (UA) Negative Urine Ketones Trace Urine Blood Trace H Urine Nitrite Positive H Ur Leukocyte Esterase Moderate (2+) H Urine RBC 0-2 Urine WBC 6-10 Ur Squamous Epith Cells 0-2 Other Crystals Present Urine Bacteria 4+ Hyaline Casts 0-2 COVID-19 ([facility]) Negative COVID-19 Clin Com See Note Influenza Type A (PCR) NEGATIVE Influenza Type B (PCR) NEGATIVE RSV RNA Qual (PCR) NEGATIVE SARS-CoV-2 RNA (RT-PCR) NEGATIVE 01/22/25 01/22/25 01/22/25 01:23 01:29 01:32 MCV MCH MCHC RDW Plt Count MPV Immature Gran % (Auto) Neut % (Auto) Lymph % (Auto) [place] % (Auto) Eos % (Auto) Baso % (Auto) Lymph # (Auto) [place] # (Auto) Eos # (Auto) Baso # (Auto) Abs Immat Gran (auto) Absolute Neuts (auto) Absolute Nucleated RBC Nucleated RBC % (auto) VBG pH 7.48 H VBG pCO2 37 VBG pO2 87 VBG HCO3 28 H VBG O2 Saturation 98.0 VBG Base Excess 5.2 Anion Gap Estim Creat Clear Calc Estimated GFR POC Glucose 107 Random Glucose Lactic Acid Lactic Acid F/U @ 2Hr Calcium Magnesium 1.6 Total Bilirubin Direct Bilirubin AST ALT Alkaline Phosphatase B-Natriuretic Peptide Total Protein Albumin Lipase TSH 0.46 Free T4 0.87 Random Cortisol Urine Color Urine Appearance Urine pH Ur Specific [place] Urine Protein Urine Glucose (UA) Urine Ketones Urine Blood Urine Nitrite Ur Leukocyte Esterase Urine RBC Urine WBC Ur Squamous Epith Cells Other Crystals Urine Bacteria Hyaline Casts COVID-19 ([facility]) COVID-19 Clin Com Influenza Type A (PCR) Influenza Type B (PCR) RSV RNA Qual (PCR) SARS-CoV-2 RNA (RT-PCR) 01/22/25 01/22/25 01/22/25 02:06 04:19 07:33 MCV 96.4 MCH 32.8 MCHC 34.0 RDW 14.5 Plt Count 80 L MPV 11.7 Immature Gran % (Auto) 2.4 H Neut % (Auto) 80.7 H Lymph % (Auto) 11.0 L [place] % (Auto) 5.5 Eos % (Auto) 0.0 Baso % (Auto) 0.4 Lymph # (Auto) 2.4 [place] # (Auto) 1.2 Eos # (Auto) 0.0 Baso # (Auto) 0.1 Abs Immat Gran (auto) 0.53 H Absolute Neuts (auto) 17.7 H Absolute Nucleated RBC 0.000 Nucleated RBC % (auto) 0.0 VBG pH VBG pCO2 VBG pO2 VBG HCO3 VBG O2 Saturation VBG Base Excess Anion Gap 19 Estim Creat Clear Calc 120.8 Estimated GFR > 60 POC Glucose 91 Random Glucose 87 Lactic Acid Lactic Acid F/U @ 2Hr 2.0 Calcium 8.6 Magnesium Total Bilirubin Direct Bilirubin AST ALT Alkaline Phosphatase B-Natriuretic Peptide Total Protein Albumin Lipase TSH Free T4 Random Cortisol 16.7 Urine Color Urine Appearance Urine pH Ur Specific [place] Urine Protein Urine Glucose (UA) Urine Ketones Urine Blood Urine Nitrite Ur Leukocyte Esterase Urine RBC Urine WBC Ur Squamous Epith Cells Other Crystals Urine Bacteria Hyaline Casts COVID-19 ([facility]) COVID-19 Clin Com Influenza Type A (PCR) Influenza Type B (PCR) RSV RNA Qual (PCR) SARS-CoV-2 RNA (RT-PCR) Assessment and Plan (1) Sepsis: Status: Acute (2) Acute UTI: Status: Acute (3) Afib: Status: Acute Plan Pt is a 69 male residing at [facility] unable to provide HPI/PMH/PSH due to illness/ somnolence/sepsis secondary to UTI. Records from [facility] note pt's current PMH to include DMII, CAD, CABD, AFIB not on AC, Aortic Stenosis, OA, Vascular Dementia, Schizoaffective D/O (no guardian per paperwork), JEREMIAS, hypotension on midodrine, Chronic ITP, RADHA, Macular Degeneration presents to ED BIBA after pt developed temp 104 at 3PM and nurse emergency communications officer was notified. Pt overall did not improve and EMS was called. Pt max temp 104 at [facility]. Pt arrived in AFIB RVR, HR coming down with decrease in fever. UA positive. Pt being admitted with sepsis secondary to UTI. CXR negative for PNA. Sepsis secondary to UTI with high grade temps and required coolinb blanket Cultures are pending temp has come down Got ceftriaxone yesterday, change to Ertapenem while cultures are pending Get CT of abdomen and pelvis AMS/ somnolence due to metabolic encephalopathy from above treat as above and monitor mental status AFIB RVR, HR has topped 160, likely from sepsis, given IV metoprolol IV dig, cardiology consult DMII SSI for NPO status Chronic ITP PLTs 89K No lovenox due to PLT count No obvious evidence of spontaneous Bleeding H/H stable Monitor CBC NPO, risk of aspiration COTA eval then foodd DVT prophylaxis: contraindicated due to PLT CT 89K MED REC PENDING FULL CODE Quality Stroke Does the patient have a stroke diagnosis?: No Reason for No Anti-thrombotic by Day Two: N/A - Med Ordered VTE Prior VTE?: No VTE Risk Level:: Medical - moderate - high VTE Device Contraindication: N/A - Device Ordered VTE Drug Contraindication: N/A - Med Ordered
--- NOTE | 2025-01-22 09:56 | PHA.MEDREC ---
Addendum entered by Meño Salas PharmD 01/22/25 10:12: reviewed Original Note: Pharmacy Consult ? Medication Reconciliation Pharmacy has completed the medication reconciliation. Utilized list from [facility].
[2025-01-22] MEDS: Lactated Ringers 1,000 ML 125 ML IVCONT ×2 (10:34→18:16)
--- NOTE | 2025-01-22 10:51 | PC.NURSE ---
Paged Dr. Cotto Patients heart rate 140-160's, ekg ordered. Patient is npo needs swallow eval. Patient in Afib RVR 140-160's ordered metoprolol 5m iv push went down to 110-120's. then given Digoxin because his bp was 91/56 heart rate Snus rythym-sinus tachycardia 90-110's now.
--- NOTE | 2025-01-22 11:29 | PM.CNCAR ---
History of Present Illness History of Present Illness Date of Service: 01/22/25 Chief complaint: Sepsis Narrative: This is a cardiology consultation regarding atrial fibrillation. Patient himself is very sleepy and also has dementia and hence cannot obtain any history. Discussed with RN taking care of the patient and also reviewed the chart. Patient with many comorbidities including vascular dementia, schizoaffective disorder and he has been brought to the hospital for very high temperature of 104 degrees F. then apparently had increasing bundle status changes and he is brought to the hospital. Temperature was apparently 102.4 degrees with leukocytosis. He was noted to be in atrial fibrillation with rapid rate. We have been asked to comment on this. Per RN, patient has received beta-blockers as well as digoxin and heart rate is not much better in the 90s. Review of Systems Review of Systems: Unable to obtain review of systems due to mental status PMFSH Past Medical History Medical History Cataracts, both eyes Macular degeneration MRSA (methicillin resistant staph aureus) culture positive Tracheostomy in place Chronic ITP (idiopathic thrombocytopenia) RADHA (iron deficiency anemia) Vascular dementia Schizoaffective disorder Osteoarthritis JEREMIAS (obstructive sleep apnea) Diabetes 1.5, managed as type 2 PVD (peripheral vascular disease) CHF (congestive heart failure) Aortic stenosis CABG (coronary artery bypass graft) planned CAD (coronary artery disease) Afib Family History Pertinent family history: Unable to obtain Social History Social History Patient Tobacco Use Status: Never used Tobacco Advance Directives: No Advance Directives Information Provided: No Advance Directives on File: No Do you have a plan to hurt others: No Plan Nutrition Risks: No Nutritional Risk Travel History Ebola Risk: Travel/Contact With Anyone From Affected Area/s: No Has Patient Experienced Ebola Symptoms: No Meds Allergies Allergy/AdvReac Type Severity Reaction Status Date / Time No Known Allergies Allergy Verified 01/21/25 23:31 Active Medications: Current Medications Acetaminophen (Acetaminophen 325 Mg Tablet) 650 mg PO Q6H PRN PRN Reason: Pain, Mild 1-3,fever,headache Albuterol/Ipratropium (Albuterol/Iprat 2.5/0.5mg 3 Ml Ampul.Neb) 3 ml INHALE Q4H PRN PRN Reason: Shortness of Breath/Wheezing Aspirin (Aspirin 81 Mg Tab.Chew) 81 mg PO DAILY [facility] Atorvastatin Calcium (Atorvastatin Calcium 80 Mg Tablet) 80 mg PO BEDTIME [facility] Benztropine Mesylate (Benztropine Mesylate 1 Mg Tablet) 1 mg PO BID [facility] Betamethasone Dipropion Augmented (Betamethasone Dip Aug 0.05% Cr 15 Gm Tube) 1 appl TOPICAL DAILY [facility] Bisacodyl (Bisacodyl 10 Mg Supp.Rect) 10 mg MN DAILY PRN PRN Reason: Constipation Calcium Carbonate (Calcium Carbonate 750 Mg Tab.Chew) 750 mg PO Q4H PRN PRN Reason: Heartburn Ceftriaxone Sodium (Ceftriaxone Sodium 2 Gm Vial) 2 gm IVPUSH Q24H [facility] Dextrose (Dextrose 50 % 25 Gm/50 Ml Syringe) 25 gm IVPUSH Q15M PRN; Protocol PRN Reason: per Hypoglycemia Standing Ord. Digoxin (Digoxin 0.5 Mg/2 Ml Ampul) 0.25 mg IVPUSH Q6H [facility]; Protocol Stop: 01/22/25 15:01 Last Admin: 01/22/25 09:13 Dose: 0.25 mg Glucose (Glucose Gel 15 Gm Gel..Gram.) 15 gm PO Q15M PRN; Protocol PRN Reason: per Hypoglycemia Standing Ord. Lactated Ringer's (Lr) 1,000 mls @ 125 mls/hr IVCONT .Q8H [facility] Last Admin: 01/22/25 10:34 Dose: 125 mls/hr Insulin Human Lispro (Insulin Lispro 100 Unit/Ml 3 Ml Vial) 0 unit SUBCUT Q6H [facility]; Protocol Last Admin: 01/22/25 07:40 Dose: Not Given Magnesium Hydroxide (Milk Of Magnesia 30 Ml Oral.Susp) 30 ml PO DAILY PRN PRN Reason: Constipation Magnesium Oxide (Magnesium Oxide 400 Mg Tablet) 400 mg PO BID [facility] Melatonin (Melatonin 3 Mg Tablet) 6 mg PO BEDTIME PRN PRN Reason: Insomnia Meropenem (Meropenem 1 Gm Vial) 1 gm IVPUSH Q8H [facility] Last Admin: 01/22/25 10:31 Dose: 1 gm Metoprolol Tartrate (Metoprolol Tartrate 5 Mg/5 Ml Vial) 2.5 mg IVPUSH Q6H PRN; Protocol PRN Reason: Heart Rate >100 Midodrine (Midodrine Hcl 2.5 Mg Tablet) 2.5 mg PO Q5H PRN PRN Reason: SBP<90 Omeprazole (Omeprazole 20 Mg Capsule.Dr) 20 mg PO DAILY@0630 [facility] Ondansetron HCl (Ondansetron Hcl 4 Mg/2 Ml Vial) 4 mg IVPUSH Q8H PRN PRN Reason: Nausea and Vomiting Perphenazine (Perphenazine 8 Mg Tablet) 32 mg PO BID [facility] Polyethylene Glycol (Polyethylene Glycol 3350 17 Gm Powd.Pack) 17 gm PO DAILY PRN PRN Reason: Constipation Risperidone (Risperidone 2 Mg Tablet) 4 mg PO BID [facility] Senna (Sennosides 8.6 Mg Tablet) 17.2 mg PO BEDTIME [facility] Sodium Biphosphate/Sodium Phosphate (Sodium Phosphate,[place]-Dibasic 133 Ml Enema) 118 ml MN DAILY PRN PRN Reason: Constipation Sodium Chloride (0.9 % Sodium Chloride Flush 3 Ml Syringe) 3 ml IVFLUSH QSHIFT [facility] Last Admin: 01/22/25 07:40 Dose: Not Given Valproic Acid (Valproic Acid 250 Mg Capsule) 750 mg PO DAILY [facility] Valproic Acid (Valproic Acid 250 Mg Capsule) 1,000 mg PO BEDTIME [facility] Home Medications ?Medication ?Instructions ?Recorded ?Confirmed ?Last Taken ?Type acetaminophen 325 mg tablet 650 mg PO Q6H PRN General 01/22/25 01/22/25 Unknown History Discomfort/Fever acetaminophen 650 mg rectal 650 mg MN Q6H PRN General 01/22/25 01/22/25 Unknown History suppository Discomfort/Fever aspirin 81 mg tablet 81 mg PO DAILY 01/22/25 01/22/25 Unknown History atorvastatin 80 mg tablet 80 mg PO BEDTIME 01/22/25 01/22/25 Unknown History benztropine 1 mg tablet 1 mg PO BID 01/22/25 01/22/25 Unknown History betamethasone dipropionate 0.05 % 1 appl topical DAILY 01/22/25 01/22/25 Unknown History topical cream bisacodyl 10 mg rectal suppository 10 mg MN DAILY PRN Constipation 01/22/25 01/22/25 Unknown History furosemide 20 mg tablet 20 mg PO DAILY 01/22/25 01/22/25 Unknown History glucagon 1 mg/0.2 mL subcutaneous 1 mg subcut Q15M PRN Low Blood 01/22/25 01/22/25 Unknown History solution Sugars magnesium hydroxide 400 mg/5 mL 30 ml PO DAILY PRN Constipation 01/22/25 01/22/25 Unknown History oral suspension (Milk of Magnesia) magnesium oxide 400 mg PO BID 01/22/25 01/22/25 Unknown History metformin 500 mg tablet 500 mg PO BID 01/22/25 01/22/25 Unknown History methyl salicylate 15 %-menthol 10 1 appl topical BID PRN Muscle Aches 01/22/25 01/22/25 Unknown History % topical cream (Muscle Rub) midodrine 2.5 mg tablet 2.5 mg PO Q5H PRN SBP<90 01/22/25 01/22/25 Unknown History naloxone 0.4 mg/mL injection 0.4 mg subcut Q3M PRN Opioid 01/22/25 01/22/25 Unknown History solution Overdose naloxone 0.4 mg/mL injection 0.4 mg IM Q2M PRN Opioid Overdose 01/22/25 01/22/25 Unknown History syringe omeprazole 20 mg tablet,delayed 20 mg PO DAILY@0630 01/22/25 01/22/25 Unknown History release perphenazine 16 mg tablet 32 mg PO BID 01/22/25 01/22/25 Unknown History potassium chloride 10 mEq 10 meq PO DAILY 01/22/25 01/22/25 Unknown History tablet,extended release risperidone 2 mg tablet 4 mg PO BID 01/22/25 01/22/25 Unknown History sennosides 8.6 mg tablet (senna) 8.6 mg PO BEDTIME 01/22/25 01/22/25 Unknown History sodium phosphates 19 gram-7 118 ml MN DAILY PRN Constipation 01/22/25 01/22/25 Unknown History gram/118 mL enema (Fleet Enema) spironolactone 25 mg tablet 12.5 mg PO DAILY 01/22/25 01/22/25 Unknown History valproic acid 250 mg capsule 1,000 mg PO BEDTIME 01/22/25 01/22/25 Unknown History valproic acid 250 mg capsule 750 mg PO DAILY 01/22/25 01/22/25 Unknown History Physical Exam Vital Signs: Vital Signs: Last Vital Signs Temp 98.2 F 01/22/25 10:35 Pulse 103 H 01/22/25 10:35 Resp 18 01/22/25 10:35 BP 110/75 01/22/25 10:35 Pulse Ox 98 01/22/25 10:35 O2 Del Method Nasal Cannula 01/22/25 10:35 O2 Flow Rate 1 01/22/25 10:35 BMI result Body Mass Index 30.3 Const: Other: Sleeping General: no acute distress Orientation/consciousness: No patient oriented x3 HEENT: Other: Unremarkable Head: Yes normal to inspection Neck: Neck: Yes normal visual inspection Chest: Chest palpation & inspection: normal inspection of the chest Resp: Other: Conducted sounds Cardio: Palpation: normal PMI Heart sounds: S1 normal heart sound present, S2 normal heart sound present, no gallops, Murmur heart sound present systolic at the apex and no rubs GI: Palpation (GI): Soft to palpation Back/Spine/Pelvis: Other: unremarkable Skin: General skin exam: no rashes or lesions noted Neuro: General: No patient oriented x3 Extrem: General: Yes normal to inspection Psych: Mental Status: mental status grossly normal Objective Labs and Meds 01/22/25 04:19 01/22/25 04:19 Lab results: Laboratory Results - last 24 hr 01/21/25 01/21/25 01/22/25 23:35 23:39 00:02 WBC 17.1 H RBC 3.77 L Hgb 12.6 L Hct 35.6 L MCV 94.4 MCH 33.4 H MCHC 35.4 RDW 14.6 Plt Count 89 L MPV 10.6 Immature Gran % (Auto) 0.6 H Neut % (Auto) 86.1 H Lymph % (Auto) 4.4 L [place] % (Auto) 8.7 Eos % (Auto) 0.0 Baso % (Auto) 0.2 Lymph # (Auto) 0.8 L [place] # (Auto) 1.5 H Eos # (Auto) 0.0 Baso # (Auto) 0.0 Abs Immat Gran (auto) 0.11 H Absolute Neuts (auto) 14.8 H Absolute Nucleated RBC 0.000 Nucleated RBC % (auto) 0.0 VBG pH VBG pCO2 VBG pO2 VBG HCO3 VBG O2 Saturation VBG Base Excess Sodium 137 Potassium 3.7 Chloride 103 Carbon Dioxide 24 Anion Gap 14 BUN 10 Creatinine 0.70 Estim Creat Clear Calc 122.6 Estimated GFR > 60 POC Glucose Random Glucose 117 H Lactic Acid 2.7 H* Lactic Acid F/U @ 2Hr Calcium 8.8 Magnesium Total Bilirubin 0.9 Direct Bilirubin 0.4 AST 33 ALT 27 Alkaline Phosphatase 66 Troponin I High Sens 15.5 D B-Natriuretic Peptide 301 H Total Protein 6.4 L Albumin 3.6 Lipase 4 L TSH Free T4 Random Cortisol Urine Color Dark Yellow Urine Appearance Clear Urine pH >= 9.0 Ur Specific [place] 1.020 Urine Protein 30 (1+) H Urine Glucose (UA) Negative Urine Ketones Trace Urine Blood Trace H Urine Nitrite Positive H Ur Leukocyte Esterase Moderate (2+) H Urine RBC 0-2 Urine WBC 6-10 Ur Squamous Epith Cells 0-2 Other Crystals Present Urine Bacteria 4+ Hyaline Casts 0-2 COVID-19 ([facility]) Negative COVID-19 Clin Com See Note Influenza Type A (PCR) NEGATIVE Influenza Type B (PCR) NEGATIVE RSV RNA Qual (PCR) NEGATIVE SARS-CoV-2 RNA (RT-PCR) NEGATIVE 01/22/25 01/22/25 01/22/25 01:23 01:29 01:32 WBC RBC Hgb Hct MCV MCH MCHC RDW Plt Count MPV Immature Gran % (Auto) Neut % (Auto) Lymph % (Auto) [place] % (Auto) Eos % (Auto) Baso % (Auto) Lymph # (Auto) [place] # (Auto) Eos # (Auto) Baso # (Auto) Abs Immat Gran (auto) Absolute Neuts (auto) Absolute Nucleated RBC Nucleated RBC % (auto) VBG pH 7.48 H VBG pCO2 37 VBG pO2 87 VBG HCO3 28 H VBG O2 Saturation 98.0 VBG Base Excess 5.2 Sodium Potassium Chloride Carbon Dioxide Anion Gap BUN Creatinine Estim Creat Clear Calc Estimated GFR POC Glucose 107 Random Glucose Lactic Acid Lactic Acid F/U @ 2Hr Calcium Magnesium 1.6 Total Bilirubin Direct Bilirubin AST ALT Alkaline Phosphatase Troponin I High Sens B-Natriuretic Peptide Total Protein Albumin Lipase TSH 0.46 Free T4 0.87 Random Cortisol Urine Color Urine Appearance Urine pH Ur Specific [place] Urine Protein Urine Glucose (UA) Urine Ketones Urine Blood Urine Nitrite Ur Leukocyte Esterase Urine RBC Urine WBC Ur Squamous Epith Cells Other Crystals Urine Bacteria Hyaline Casts COVID-19 ([facility]) COVID-19 Clin Com Influenza Type A (PCR) Influenza Type B (PCR) RSV RNA Qual (PCR) SARS-CoV-2 RNA (RT-PCR) 01/22/25 01/22/2525 02:06 04:19 07:33 WBC 21.9 H RBC 3.93 L Hgb 12.9 L Hct 37.9 L MCV 96.4 MCH 32.8 MCHC 34.0 RDW 14.5 Plt Count 80 L MPV 11.7 Immature Gran % (Auto) 2.4 H Neut % (Auto) 80.7 H Lymph % (Auto) 11.0 L [place] % (Auto) 5.5 Eos % (Auto) 0.0 Baso % (Auto) 0.4 Lymph # (Auto) 2.4 [place] # (Auto) 1.2 Eos # (Auto) 0.0 Baso # (Auto) 0.1 Abs Immat Gran (auto) 0.53 H Absolute Neuts (auto) 17.7 H Absolute Nucleated RBC 0.000 Nucleated RBC % (auto) 0.0 VBG pH VBG pCO2 VBG pO2 VBG HCO3 VBG O2 Saturation VBG Base Excess Sodium 138 Potassium 5.0 D Chloride 106 Carbon Dioxide 18 L Anion Gap 19 BUN 10 Creatinine 0.71 Estim Creat Clear Calc 120.8 Estimated GFR > 60 POC Glucose 91 Random Glucose 87 Lactic Acid Lactic Acid F/U @ 2Hr 2.0 Calcium 8.6 Magnesium Total Bilirubin Direct Bilirubin AST ALT Alkaline Phosphatase Troponin I High Sens B-Natriuretic Peptide Total Protein Albumin Lipase TSH Free T4 Random Cortisol 16.7 Urine Color Urine Appearance Urine pH Ur Specific [place] Urine Protein Urine Glucose (UA) Urine Ketones Urine Blood Urine Nitrite Ur Leukocyte Esterase Urine RBC Urine WBC Ur Squamous Epith Cells Other Crystals Urine Bacteria Hyaline Casts COVID-19 ([facility]) COVID-19 Clin Com Influenza Type A (PCR) Influenza Type B (PCR) RSV RNA Qual (PCR) SARS-CoV-2 RNA (RT-PCR) ECG Interpretation: Initial EKG with atrial fibrillation rate of 110/Min. Nonspecific ST-T changes. In the subsequent EKGs, goes up to 160/Min. Some ST-depression, probably rate dependent. Assessment and Plan (1) Atrial fibrillation with rapid ventricular response: Status: Acute Plan Atrial fibrillation with rapid ventricular response in the setting of sepsis/UTI, high-grade temperature requiring cooling blanket. Has received beta-blockers/digoxin in the rate is much better. As the blood pressure is lowish, continue digoxin load followed by maintenance. Need to assess candidacy for anticoagulation. Obtain echocardiogram. Discussed with Dr. Cotto. Procedures Date of Service Date of Service: 01/22/25
[2025-01-22 12:46] LABS: Glucose, Whole Blood 101 mg/dL (60-115)
--- NOTE | 2025-01-22 13:40 | MHC.SL.SWA ---
Speech Pathologist Impression: Dysphagia unspecified Risk of Aspiration Due to: Desats across several swallows of thins Dysphasia Diet Status: Liquid Consistency and Strategies for Safe Swallow: Liquid Intake Recommendation: NPO Liquid Intake Strategies: Solid Food Consistency: Dietary Recommendations: NPO Additional Modifications to Solid Foods: Oral Medication Intake: NPO Please contact the pharmacy regarding appropriate crushable or liquid drug formulations that are available whenever modified delivery is recommended. Compensatory Strategies and Precautions to be Taken for Safe Swallow: Supervision While Eating and Drinking for Safe Swallow: PO with [facility]AV[facility] Foods to Avoid: Swallowing Recommended Treatments: Daily M-F Comment: Pt confused, dysarthric but able to follow some simple commands. RN consulted, repositioned pt more upright in stretcher. O2 sats in low 90s with 2L O2 via NC. Pt trialed with sips of water by cup, sips of gingerale by straw. No coughing or changes to voicing, but consistent desaturations occurred s/p every sip of liquid during trial, down to low 80s and once in upper 70s. With rest period and cueing to inhale/exhale, pt's O2 sats increased to low 90s. Trials discontinued. [facility]ER consulted with MD SARAH notified. BRICK PAVER to re-assess tomorrow. Frequency/Duration: Date Range for Service Req: Timeline to reassess: Delivery Man Clinican/Clinical Fellow: No Supervisory Statement: I have reviewed and agree with the student/clinical fellow's documentation: N/A Speech Language Pathologist: Carmen Schafer M.S., [facility]
[2025-01-22 19:34] LABS: Glucose, Whole Blood 74 mg/dL (60-115)
[2025-01-23 01:18] LABS: Glucose, Whole Blood 77 mg/dL (60-115)
[2025-01-23] MEDS: 0.9 % Sodium Chloride Flush 3 ML SYRINGE IVFLUSH (02:51)
[2025-01-23 03:12] VITALS: BP 110/58; PULSE 84; RESP 18; TEMP 36.6; O2SAT 95
[2025-01-23 03:13] LABS: Glucose, Whole Blood 83 mg/dL (60-115)
[2025-01-23] MEDS: Lactated Ringers 1,000 ML 125 ML IVCONT ×2 (05:28→18:37)
[2025-01-23 06:41] LABS: Glucose, Whole Blood 80 mg/dL (60-115)
--- NOTE | 2025-01-23 07:00 | CA_ITS ---
Transthoracic Echocardiogram Amended Patient (Last, First, Middle): Micheal Coon, Gender: Male Date of : 1955 Age: 69 Procedure Date: 01/23/2025 Procedure Type: Transthoracic [place] [facility] [place]: 182.88 cm Weight: 101.15 kg BSA: 2.23 m2 Heart Rate: 103 bpm BP: 110 / 75 mmHg Various Exceptionalities Teacher: TO Referring MD: Jaron Lowery MD Symptoms: Atrial fibrillation Study Quality: Adequate w/Contrast ECG Rhythm: Atrial Fibrillation Conclusions: - The left ventricular systolic function is mildly decreased. The calculated ejection fraction is 47% by biplane method. - Overall, paradoxical, low-flow, low gradient, severe aortic stenosis. Findings Procedure Information Contrast agent, definity, is being given per protocol without apparent complications. Left Ventricle Normal left ventricular cavity size. The left ventricular systolic function is mildly decreased. The calculated ejection fraction is 47% by biplane method. There is mild global hypokinesis. Diastolic function is indeterminate on the basis of available data. There is mild septal asymmetric hypertrophy. Right Ventricle Mildly increased right ventricular cavity size. There is moderately decreased right ventricular systolic function. Atria The left atrium is moderately dilated. The right atrium is normal in size. Aortic Valve There is moderate calcification of the aortic valve. The mean gradient is 19 mmHg. The aortic valve area is 0.76 cm2. There is no aortic valve regurgitation. Dimensionless index 0.18. Stroke volume index 20 mL/m2. Overall, paradoxical, low-flow, low gradient, severe aortic stenosis. Mitral Valve There is moderate mitral annular calcification. There is mild to moderate mitral valve regurgitation. There is no mitral valve stenosis. Pulmonic Valve The pulmonic valve is likely normal. Tricuspid Valve There is mild tricuspid valve regurgitation. There is no evidence of pulmonary hypertension. Great Vessels The asc aorta is normal in size. Venous The inferior vena cava is dilated and collapses greater than 50% with inspiration. Pericardium/Pleural There is no evidence of pericardial effusion. Prior Study Comparison No prior study available for comparison. Measurements 2D Linear Measurements IVSd: 1.06 0.6-0.9/0.6-1.0 cm LVIDd: 4.85 3.9-5.3/4.2-5.9 cm LVIDd Index: 2.17 2.4-3.2/2.2-3.1 cm/m2 LVIDs: 3.46 2.0-3.6 cm LVPWd: 0.86 0.7-1.1 cm LA Diam: 4.70 2.7-3.8/3.0-4.0 cm LAIDs Index: 2.11 1.5-2.3 cm/m2 LV Mass: 203.62 67-162/88-224 g LV Mass Index: 91.31 43-95/49-115 g/m2 LVOT Diam: 2.40 3.0+(-)1.3 cm 2D Volumes LA Vol: 44.40 2D Systolic Function EF 4C: 39.80 >55% EF 2C: 51.10 >55% EF BiP: 46.70 >55% Mitral Valve MV VTI: 0.23 MV Pk Wes: 1.20 MV Mn Wes: 0.68 MV Pk Grad: 6.00 MV Mn Grad: 2.00 MV Pk E: 0.91 MV Decel Time: 127.00 E'Lateral: 8.88 E'Medial: 5.80 E/E' Med: 15.70 E/E' Lat: 10.20 PHT: 37.00 MVA PHT: 5.95 MVA Continuity: 1.93 Decel Morgan: 7.40 Aortic Valve AoV Pk Wes: 2.76 AoV Mn Wes: 2.09 AoV VTI: 0.59 AoV Pk Grad: 30.00 Aov Mn Grad: 19.00 HARI Cont.VTI: 0.76 LVOT LVOT Pk Wes: 0.51 LVOT Mn Wes: 0.32 LVOT VTI: 0.10 LVOT Pk Grad: 1.00 LVOT Mn Grad: 0.00 LVOT Diam: 2.40 LVOT Area: 4.52 Diastolic Function MV Pk E: 0.91 E'Medial: 5.80 E/E' Med: 15.70 E' Laterial: 8.88 E/E' Lat: 10.20 Right Ventricle TAPSE (mm): 10.20 TVS' Wes: 9.18 Tricuspid Valve TR Pk Wes: 2.34 TR Pk Grad: 22.00 RA Press: 8.00 RVSP: 30.00 Great Vessels Aorta Sinus of Valsalva: 3.69 2.0-3.[address] [place]: 2.71 1.7-3.4 cm Ao Asc: 3.70 2.1-3.4 cm Updated in Other Vendor System with Status of Final Jaron Lowery MD electronically signed on 01/24/2025 10:00:58 AM with status of Final
[2025-01-23 07:01] VITALS: BP 124/72; PULSE 89; RESP 18; TEMP 37.1; O2SAT 98
[2025-01-23 07:03] LABS: Hematocrit 33.3 % (42.0-52.0); Hemoglobin 11.3 g/dl (14.0-18.0); Mean Corpuscular HGB Conc 33.9 g/dl (31.0-36.0); Mean Corpuscular Hemoglobin 33.1 pg (27.0-33.0); Mean Corpuscular Volume 97.7 fL (80.0-98.0); NRBC Abs Auto 0.000 X10*3/uL (0.0-0.012); NRBC Pct Auto 0.0 /100WBC (0.0-0.2); Platelet Count 77 X10*3/uL (160-400); Red Blood Count 3.41 X10*6/uL (4.60-5.80); White Blood Count 15.0 X10*3/uL (4.8-10.8)
[2025-01-23 07:59] LABS: Anion Gap 12 (12-20); Blood Urea Nitrogen 12 mg/dL (9-16); Calcium 8.5 mg/dL (8.4-10.2); Carbon Dioxide 25 mmol/L (22-29); Chloride 107 mmol/L (96-108); Creatinine Clr Calc Pharmacy 156.9; Estimated Glomerular Filt Rate > 60; Potassium 3.5 mmol/L (3.3-5.1); Sodium 140 mmol/L (135-145)
--- NOTE | 2025-01-23 08:50 | MHC.CM.PN ---
Patient has Vascular Dementia and AMS; CM left a detailed message for HCP/Delroy @ [phone] addressing the IMM. Patient is a Resident at [facility] and returning there via BLS, at time of dc is the goal. CM has initiated and will follow for dc planning.
--- NOTE | 2025-01-23 08:58 | HO.PM.IMPN ---
Subjective Subjective Date of Service: 01/23/25 Interval History: Seen in follow up for sepsis, UTI, metabolic encephalopathya and AFiB with RVR Interval history: RVR resolved, fever resolved, and back to baseline mental status, Blood pressure is good Physical Exam Vital Signs: Vital Signs: Last Vital Signs Temp 98.8 F 01/23/25 07:01 Pulse 89 01/23/25 07:01 Resp 18 01/23/25 07:01 BP 124/72 01/23/25 07:01 Pulse Ox 98 01/23/25 07:01 O2 Del Method Room Air 01/23/25 07:01 O2 Flow Rate 6 01/22/25 15:55 BMI result Body Mass Index 29.4 Const: Other: General: More awake, alert, oriented to self Resp: CTA bilateral CVS: S1,S2,RRR GI: +BS, NT, no distention Skin: No rash Neuro: motor grossly intact Psych: appropriate affect Objective Data Active Medications Acetaminophen (Acetaminophen 325 Mg Tablet) 650 mg PO Q6H PRN PRN Reason: Pain, Mild 1-3,fever,headache Albuterol/Ipratropium (Albuterol/Iprat 2.5/0.5mg 3 Ml Ampul.Neb) 3 ml INHALE Q4H PRN PRN Reason: Shortness of Breath/Wheezing Aspirin (Aspirin 81 Mg Tab.Chew) 81 mg PO DAILY [facility] Atorvastatin Calcium (Atorvastatin Calcium 80 Mg Tablet) 80 mg PO BEDTIME [facility] Last Admin: 01/22/25 20:30 Dose: Not Given Documented By: YAMINI Non-Admin Reason: NPO Benztropine Mesylate (Benztropine Mesylate 1 Mg Tablet) 1 mg PO BID [facility] Last Admin: 01/22/25 20:30 Dose: Not Given Documented By: YAMINI Non-Admin Reason: NPO Betamethasone Dipropion Augmented (Betamethasone Dip Aug 0.05% Cr 15 Gm Tube) 1 appl TOPICAL DAILY [facility] Bisacodyl (Bisacodyl 10 Mg Supp.Rect) 10 mg OR DAILY PRN PRN Reason: Constipation Calcium Carbonate (Calcium Carbonate 750 Mg Tab.Chew) 750 mg PO Q4H PRN PRN Reason: Heartburn Ceftriaxone Sodium (Ceftriaxone Sodium 2 Gm Vial) 2 gm IVPUSH Q24H [facility] Last Admin: 01/23/25 02:00 Dose: 2 gm Documented By: YAMINI Dextrose (Dextrose 50 % 25 Gm/50 Ml Syringe) 25 gm IVPUSH Q15M PRN; Protocol PRN Reason: per Hypoglycemia Standing Ord. Glucose (Glucose Gel 15 Gm Gel..Gram.) 15 gm PO Q15M PRN; Protocol PRN Reason: per Hypoglycemia Standing Ord. Lactated Ringer's (Lr) 1,000 mls @ 125 mls/hr IVCONT .Q8H [facility] Last Admin: 01/23/25 05:28 Dose: 125 mls/hr Documented By: YAMINI Insulin Human Lispro (Insulin Lispro 100 Unit/Ml 3 Ml Vial) 0 unit SUBCUT Q6H [facility]; Protocol Last Admin: 01/23/25 08:02 Dose: Not Given Documented By: GUIDO Non-Admin Reason: No Insulin Coverage Magnesium Hydroxide (Milk Of Magnesia 30 Ml Oral.Susp) 30 ml PO DAILY PRN PRN Reason: Constipation Magnesium Oxide (Magnesium Oxide 400 Mg Tablet) 400 mg PO BID [facility] Last Admin: 01/22/25 20:30 Dose: Not Given Documented By: YAMINI Non-Admin Reason: NPO Melatonin (Melatonin 3 Mg Tablet) 6 mg PO BEDTIME PRN PRN Reason: Insomnia Meropenem (Meropenem 1 Gm Vial) 1 gm IVPUSH Q8H [facility] Last Admin: 01/23/25 02:52 Dose: 1 gm Documented By: YAMINI Metoprolol Tartrate (Metoprolol Tartrate 5 Mg/5 Ml Vial) 2.5 mg IVPUSH Q6H PRN; Protocol PRN Reason: Heart Rate >100 Midodrine (Midodrine Hcl 2.5 Mg Tablet) 2.5 mg PO Q5H PRN PRN Reason: SBP<90 Omeprazole (Omeprazole 20 Mg Capsule.Dr) 20 mg PO DAILY@0630 [facility] Last Admin: 01/23/25 05:05 Dose: Not Given Documented By: YAMINI Non-Admin Reason: NPO Ondansetron HCl (Ondansetron Hcl 4 Mg/2 Ml Vial) 4 mg IVPUSH Q8H PRN PRN Reason: Nausea and Vomiting Perphenazine (Perphenazine 8 Mg Tablet) 32 mg PO BID [facility] Last Admin: 01/22/25 20:30 Dose: Not Given Documented By: YAMINI Non-Admin Reason: NPO Polyethylene Glycol (Polyethylene Glycol 3350 17 Gm Powd.Pack) 17 gm PO DAILY PRN PRN Reason: Constipation Risperidone (Risperidone 2 Mg Tablet) 4 mg PO BID [facility] Last Admin: 01/22/25 20:30 Dose: Not Given Documented By: YAMINI Non-Admin Reason: NPO Senna (Sennosides 8.6 Mg Tablet) 17.2 mg PO BEDTIME [facility] Last Admin: 01/22/25 20:30 Dose: Not Given Documented By: YAMINI Non-Admin Reason: NPO Sodium Biphosphate/Sodium Phosphate (Sodium Phosphate,[place]-Dibasic 133 Ml Enema) 118 ml OR DAILY PRN PRN Reason: Constipation Sodium Chloride (0.9 % Sodium Chloride Flush 3 Ml Syringe) 3 ml IVFLUSH QSHIFT [facility] Last Admin: 01/23/25 02:51 Dose: 3 ml Documented By: YAMINI Valproic Acid (Valproic Acid 250 Mg Capsule) 750 mg PO DAILY [facility] Valproic Acid (Valproic Acid 250 Mg Capsule) 1,000 mg PO BEDTIME [facility] Last Admin: 01/22/25 20:30 Dose: Not Given Documented By: YAMINI Non-Admin Reason: NPO Labs 01/23/25 06:31 01/23/25 06:31 Labs: Laboratory Results - last 24 hr 01/22/25 01/22/25 01/23/25 12:43 19:31 01:14 MCV MCH MCHC RDW Plt Count MPV Absolute Nucleated RBC Nucleated RBC % (auto) Anion Gap Estim Creat Clear Calc Estimated GFR POC Glucose 101 74 77 Random Glucose Calcium 01/23/25 01/23/25 01/23/25 03:09 06:31 06:37 MCV 97.7 MCH 33.1 H MCHC 33.9 RDW 14.3 Plt Count 77 L MPV 11.1 Absolute Nucleated RBC 0.000 Nucleated RBC % (auto) 0.0 Anion Gap 12 Estim Creat Clear Calc 156.9 Estimated GFR > 60 POC Glucose 83 80 Random Glucose 81 Calcium 8.5 Microbiology Microbiology Results: Microbiology 01/22/25 Unknown Urine Culture - Preliminary Urine Catheterized - Straight Catheter Gram negative ashtyn 01/21/25 23:35 Blood Culture - Preliminary Blood - Venous No growth after 24 hours. 01/21/25 23:35 Blood Culture - Preliminary Blood - Venous No growth after 24 hours. Assessment and Plan (1) Sepsis: Status: Acute (2) Acute UTI: Status: Acute (3) Afib: Status: Acute Plan Pt is a 69 male residing at [facility] unable to provide HPI/PMH/PSH due to illness/ somnolence/sepsis secondary to UTI. Records from [facility] note pt's current PMH to include DMII, CAD, CABD, AFIB not on AC, Aortic Stenosis, OA, Vascular Dementia, Schizoaffective D/O (no guardian per paperwork), JEREMIAS, hypotension on midodrine, Chronic ITP, RADHA, Macular Degeneration presents to ED BIBA after pt developed temp 104 at 3PM and nurse web production artist was notified. Pt overall did not improve and EMS was called. Pt max temp 104 at [facility]. Pt arrived in AFIB RVR, HR coming down with decrease in fever. UA positive. Pt being admitted with sepsis secondary to UTI. CXR negative for PNA. Sepsis secondary to UTI with high grade temps and required cooling blanket, temp now normal Urine culture GNR Started on Ceftriaxone yesterday, changed to Ertapenem d/t persistent fever CT of A/P: limited study, no acute abdominal process AMS/ somnolence due to metabolic encephalopathy from above, at baseline now AFIB RVR, HR has topped 160, likely from sepsis, given IV metoprolol, cardiazem IV and later dig loading, HR is better IV dig, cardiology consult. No anticoagulation in past d/t low plat and that contiues to be the case DMII SSI for NPO status Chronic ITP PLTs 77 No lovenox due to PLT count No obvious evidence of spontaneous Bleeding H/H stable Monitor CBC NPO, risk of aspiration HEALTHCARE FINANCIAL ANALYST eval then foodd DVT prophylaxis: contraindicated due to PLT CT 89K MED REC PENDING FULL CODE Quality Stroke Does the patient have a stroke diagnosis?: No Reason for No Anti-thrombotic by Day Two: N/A - Med Ordered VTE Prior VTE?: No VTE Risk Level:: Medical - moderate - high VTE Device Contraindication: N/A - Device Ordered VTE Drug Contraindication: N/A - Med Ordered
--- NOTE | 2025-01-23 09:41 | P.CDIM_ITS ---
PROVIDER RESPONSE TEXT: To clarify, the appropriate diagnosis supported by the clinical indicators: Encephalopathy: toxic metabolic QUERY TEXT: PHYSICIAN'S DOCUMENTATION REQUEST Date of Query: 01/22/2025 10:00 AM EDT Patient Name: Micheal Coon Admit Date: 01/22/2025 Dear Al Cotto MD, A review of the medical record indicates additional documentation may be needed. Please review below and update the documentation accordingly. Clinical Indicators: ED dated 01/21/25 - Patient arrived with altered mental status, fever, tachy. Patient was sent by EMS for evaluation of fever, becoming lethargic, unable to obtain history from the patient secondary to decreased mental status. Admit for Sepsis with UTI. AMS/somnolence likely due to Sepsis, UTI. IV fluid resuscitation. Based on the above, could you clarify if any of the following, is the most likely etiology of the confusion/altered mental status? Encephalopathy Indicate type such as metabolic, toxic, septic, alcoholic, hypertensive, etc. Altered mental status due to Specify known or suspected etiology Other (explain) Clinically unable to determine (explain) Thank you, Lay Hernandez, CCS, CDIS Use of terms such as suspected, likely, concern for, or probable (associated with a specific diagnosis that is being evaluated, monitored, or treated as if it exists) are acceptable and can be coded in the inpatient setting, when documented at the time of discharge. Please use your independent medical judgment in providing your response. THIS QUERY IS PART OF THE PERMANENT MEDICAL RECORD
[2025-01-23 10:55] LABS: Glucose, Whole Blood 92 mg/dL (60-115)
[2025-01-23 11:00] VITALS: BP 123/72; PULSE 98; RESP 18; TEMP 36.1; O2SAT 97
[2025-01-23] MEDS: Valproic Acid Liquid 250 MG/5 ML SOLUTION 750 MG PO (12:21)
--- NOTE | 2025-01-23 12:31 | MHC.CM.PN ---
CM received a return call from Patient's Brother/HCP/Delroy @ [phone] and original IMM will be mailed to Delroy at [address] [place] [id number].
--- NOTE | 2025-01-23 12:44 | MHC.SL.SWA ---
Risk of Aspiration Due to: ams Dysphasia Diet Status: UPGRADE Liquid Consistency and Strategies for Safe Swallow: Liquid Intake Recommendation: Thin Solid Food Consistency: Dietary Recommendations: Grnd/Mech Altered (NDD2) Oral Medication Intake: Whole with Puree Please contact the pharmacy regarding appropriate crushable or liquid drug formulations that are available whenever modified delivery is recommended. Compensatory Strategies and Precautions to be Taken for Safe Swallow: Sitting Upright (90 deg) Alternate Liquids/Solids Oral Check Supervision While Eating and Drinking for Safe Swallow: Total Assistance (1:1) Recommendation for Speech: Inpatient Speech Therapy Comment: LTR at [facility]. Pt had MBSS in September 2024 w/o dentures; recommended NDD3 and thin. Pt reportedly new to edentulous state, used to have dentures but in the process of getting new ones that are better fitting. Pt reportedly mildly dysarthric at baseline secondary to edentulous state. Independent feed at baseline. MENTAL HEALTH TECHNICIAN is not certain, but believes he takes pills whole w/ liquid. Recommend UPGRADE to GROUND/MECH ALTERED (NDD2) and THIN liquids. Pt requires 1-1 assist. Modified solids are recommended at this time d/t prolonged mastication and altered mental status. If pt has not returned to baseline prior to d/c, continued MENTAL HEALTH TECHNICIAN tx at next level of care is recommended. Frequency/Duration: Daily M-F Paper Folding Machine Operator Clinican/Clinical Fellow: No Supervisory Statement: I have reviewed and agree with the student/clinical fellow's documentation: N/A Speech Language Pathologist: Carmen Schafer M.S., CCC-MENTAL HEALTH TECHNICIAN
[2025-01-23 15:10] VITALS: BP 111/59; PULSE 88; RESP 18; TEMP 36; O2SAT 98
--- NOTE | 2025-01-23 15:11 | HO.WOUND ---
Wound Consult: Initial 69yr old?[place] [facility] [place] - See progress notes and H&P for detailed history.? Wound consult placed for Sacrum.? Patient agreeable to assessment and photo documentation.? Sacrum and Coccyx Etiology: Stage 1 Pressure injury ??Present on Admission Measurements: 1cm x 1cm Wound Bed: intact red nonblanchable tissue Drainage / Odor: None Edges: ?irregular Marisol wound: ?intact pink slow to tato tissue No Induration, Fluctuance or Warmth noted Goals of Treatment: ? Off load pressure and foam dressing to aid in pressure redistribution Recommendations: 1. Turn and Reposition every 2 hours and as needed for patient comfort.? Use pillows or wedges to support off loading positions. 2. Off Load all bony prominences with use of pillows and heel boots if needed.? Apply Preventative foams where needed. ? 3. Monitor for incontinence and moisture control, use barrier creams when needed for prevention and treatment. 4. Provide adequate and supplemental nutrition.? 5. Order or Continue low air loss mattress. 6. When applicable maintain blood glucose levels per Providers order. Coccyx/ Sacrum - Sacrum? - Off Load Pressure with Q2 hr turns and use of pillows - Routine cleansing.? Apply skin prep allow to dry.? Cover with foam dressing to aid in off loading and protection from friction. Change every 3 days and PRN. Re-consult wound care Nurse for wound deterioration or wound changes.
[2025-01-23 16:18] LABS: Glucose, Whole Blood 93 mg/dL (60-115)
[2025-01-23 20:00] VITALS: BP 107/61; PULSE 82; RESP 18; TEMP 36.2; O2SAT 97
[2025-01-23] MEDS: Valproic Acid Liquid 250 MG/5 ML SOLUTION 1000 MG PO (20:43)
[2025-01-23 20:49] LABS: Glucose, Whole Blood 102 mg/dL (60-115)
[2025-01-23 23:44] VITALS: BP 140/80; PULSE 75; RESP 18; TEMP 36.2; O2SAT 97
[2025-01-24] MEDS: Lactated Ringers 1,000 ML 125 ML IVCONT (02:53)
[2025-01-24 02:59] VITALS: BP 138/81; PULSE 83; RESP 18; TEMP 36.6; O2SAT 96
[2025-01-24 06:50] VITALS: BP 138/86; PULSE 79; RESP 16; TEMP 36.7; O2SAT 97
[2025-01-24 07:18] LABS: Glucose, Whole Blood 83 mg/dL (60-115)
[2025-01-24 07:49] LABS: Hematocrit 33.9 % (42.0-52.0); Hemoglobin 11.4 g/dl (14.0-18.0); Mean Corpuscular HGB Conc 33.6 g/dl (31.0-36.0); Mean Corpuscular Hemoglobin 32.9 pg (27.0-33.0); Mean Corpuscular Volume 98.0 fL (80.0-98.0); NRBC Abs Auto 0.000 X10*3/uL (0.0-0.012); NRBC Pct Auto 0.0 /100WBC (0.0-0.2); Red Blood Count 3.46 X10*6/uL (4.60-5.80); White Blood Count 8.1 X10*3/uL (4.8-10.8)
[2025-01-24 07:56] LABS: Platelet Count 87 X10*3/uL (160-400)
[2025-01-24 07:59] LABS: Anion Gap 9 (12-20); Blood Urea Nitrogen 12 mg/dL (9-16); Calcium 8.7 mg/dL (8.4-10.2); Carbon Dioxide 28 mmol/L (22-29); Chloride 106 mmol/L (96-108); Creatinine Clr Calc Pharmacy 154.1; Estimated Glomerular Filt Rate > 60; Potassium 3.6 mmol/L (3.3-5.1); Sodium 139 mmol/L (135-145)
[2025-01-24 11:08] VITALS: BP 126/74; PULSE 88; RESP 18; TEMP 36.3; O2SAT 96
[2025-01-24] MEDS: Valproic Acid Liquid 250 MG/5 ML SOLUTION 750 MG PO ×2 (11:26→11:42)
[2025-01-24 11:33] LABS: Glucose, Whole Blood 100 mg/dL (60-115)
--- NOTE | 2025-01-24 12:13 | MHC.CM.PN ---
Per ROUNDS discussion, Patient is not yet medically cleared for dc (pending repeat cultures); returning to LTC is the goal and CM will continue to follow.
--- NOTE | 2025-01-24 13:03 | P.PNCA_ITS ---
Subjective Subjective Date of Service: 01/24/25 Interval history: Seen this morning around 08:45. No meaningful history or any information from patient. Seems he has been stable per notes. Review of Systems Review of Systems Unable to obtain Yes Unobtainable due to mental condition and Unobtainable due to mental status Physical Exam Vital Signs: Last Vital Signs Temp 97.4 F 01/24/25 11:08 Pulse 88 01/24/25 11:08 Resp 18 01/24/25 11:08 BP 126/74 01/24/25 11:08 Pulse Ox 96 01/24/25 11:08 O2 Del Method Room Air 01/24/25 11:08 O2 Flow Rate 6 01/22/25 15:55 BMI result Body Mass Index 29.4 Const Other: Sleeping General: no acute distress Orientation/consciousness: No patient oriented x3 HEENT Other: Unremarkable Head: Yes normal to inspection Neck Neck: Yes normal visual inspection Chest Chest palpation & inspection: normal inspection of the chest Resp Other: Conducted sounds Cardio Palpation: normal PMI Heart sounds: S1 normal heart sound present, S2 normal heart sound present, no gallops, Murmur heart sound present systolic at the apex and no rubs GI Palpation (GI): Soft to palpation Back/Spine/Pelvis Other: unremarkable Skin General skin exam: no rashes or lesions noted Neuro General: No patient oriented x3 Extrem General: Yes normal to inspection Psych Mental Status: mental status grossly normal Objective Labs and Meds 01/24/25 06:49 01/24/25 06:49 Lab results: Laboratory Results - last 24 hr 01/23/25 01/23/25 01/24/25 16:14 20:45 06:49 WBC 8.1 RBC 3.46 L Hgb 11.4 L Hct 33.9 L MCV 98.0 MCH 32.9 MCHC 33.6 RDW 14.2 Plt Count 87 L MPV 11.1 Absolute Nucleated RBC 0.000 Nucleated RBC % (auto) 0.0 Sodium 139 Potassium 3.6 Chloride 106 Carbon Dioxide 28 Anion Gap 9 L BUN 12 Creatinine 0.55 Estim Creat Clear Calc 154.1 Estimated GFR > 60 POC Glucose 93 102 Random Glucose 83 Calcium 8.7 01/24/25 01/24/25 06:54 11:10 WBC RBC Hgb Hct MCV MCH MCHC RDW Plt Count MPV Absolute Nucleated RBC Nucleated RBC % (auto) Sodium Potassium Chloride Carbon Dioxide Anion Gap BUN Creatinine Estim Creat Clear Calc Estimated GFR POC Glucose 83 100 Random Glucose Calcium Progress Note: A&P Assessment and plan (1) Atrial fibrillation with rapid ventricular response: Status: Acute (2) Nonrheumatic aortic (valve) stenosis: Status: Acute Plan Atrial fibrillation with rapid ventricular response in the setting of sepsis/UTI, high-grade temperature. He had received beta-blockers and digoxin. Currently, listed to be only on metoprolol. On telemetry, rates are well controlled. Hence may continue that. He has some thrombocytopenia but if no other clear-cut bleeding issues or other contraindications, then consider Eliquis. Otherwise on the echocardiogram, he has got mild cardiomyopathy and severe aortic stenosis. Considering his overall health and lack of comprehension, he is not a good candidate for invasive studies or TAVR. We will need to discuss with long term staff. Time Spent With Patient Time: Total time managing care of this patient today ____ minutes. Progress Note: Quality Stroke Does the patient have a stroke diagnosis?: No Reason for No Anti-thrombotic by Day Two: N/A - Med Ordered Procedures Date of Service Date of Service: 01/24/25
--- NOTE | 2025-01-24 13:28 | MHC.SL.SWA ---
Speech Pathologist Impression: Mild oral phase dysphagia, reduced self-awareness increases risk for pharyngeal dysphagia Risk of Aspiration Due to: AMS Hx of dysphagia Dysphasia Diet Status: 01/23 Recommend UPGRADE to GROUND/MECH ALTERED (NDD2) and THIN liquids. Pt requires 1-1 assist. Per [facility] MOLD CLAMPER, pt's baseline is NDD3/thin based on MBSS done in September 2024 (w/o dentures). Pt independent feed at baseline. Pt in process of getting new dentures. If pt has not returned to baseline prior to d/c, continued MOLD CLAMPER tx at next level of care is recommended. Liquid Consistency and Strategies for Safe Swallow: Liquid Intake Recommendation: Thin Liquid Intake Strategies: Solid Food Consistency: Dietary Recommendations: Grnd/Mech Altered (NDD2) Additional Modifications to Solid Foods: Oral Medication Intake: Whole with Puree Please contact the pharmacy regarding appropriate crushable or liquid drug formulations that are available whenever modified delivery is recommended. Compensatory Strategies and Precautions to be Taken for Safe Swallow: Sitting Upright (90 deg) Alternate Liquids/Solids Oral Check Supervision While Eating and Drinking for Safe Swallow: Total Assistance (1:1) Foods to Avoid: Swallowing Recommended Treatments: Compens. Strategy Educat. Recommendation for Speech: Inpatient Speech Therapy CommentPt seen for dysphagia treatment. Pt alert but with garbled speech. Pt repositioned upright in bed. Trials of chicken salad sandwich presented, as per MOLD CLAMPER recommendation yesterday to trial more advanced solids. Extended mastication and over stuffing of mouth observed when pt self-fed. Pt alternated consistencies with sips of thins by straw. No overt s/s of aspiration with minimal trials of soft solids; however, pt unable to follow cues to slow pace, reduce amount of bite when feeding himself. MOLD CLAMPER reviewed current diet recommendations with pt in agreement with NDD2, stating I have trouble eating . Frequency/Duration: Daily M-F Date Range for Service Req: Timeline to reassess: Beater Out Clinican/Clinical Fellow: No Supervisory Statement: I have reviewed and agree with the student/clinical fellow's documentation: N/A Speech Language Pathologist: Carmen Schafer M.S., CCC-MOLD CLAMPER
[2025-01-24 15:44] VITALS: BP 136/77; PULSE 88; RESP 18; TEMP 36.5; O2SAT 97
[2025-01-24 16:08] LABS: Glucose, Whole Blood 97 mg/dL (60-115)
--- NOTE | 2025-01-24 17:34 | P.PNIM_ITS ---
Subjective Subjective Date of Service: 01/24/25 Interval History: Very pleasant 69 year old male with delirium currently, representing an unreliable historian. No overt complaints other than wanting to play baseball. No concerning findings, signs or symptoms. Review of Systems Review of Systems: Yes Unobtainable due to mental status Physical Exam 2 Exam: Exam: General: A&O x3, oriented to time place person and siutaion, comfortable, no pain Cardiac: S1, S2 auscultated with no S3/4, ejection systolic murmur auscultated at RUSB without radiation. Well perfused. Respiratory: Normal breath sounds auscultated throughout all lung zones, without wheezing, rales. Normal rate. GI/ : No abdominal pain on palpation, no masses or distentions. Doan in place; sedimentous urine without discolouration MSK: Normal ambulation without pain at bony prominences or musculature Neurological: Normal neurological examination on overview, without obvious CN II-XII abnormalities. Vital Signs: Vital Signs: Last Vital Signs Temp 97.7 F 01/24/25 15:44 Pulse 88 01/24/25 15:44 Resp 18 01/24/25 15:44 BP 136/77 01/24/25 15:44 Pulse Ox 97 01/24/25 15:44 O2 Del Method Room Air 01/24/25 15:44 O2 Flow Rate 6 01/22/25 15:55 BMI result Body Mass Index 29.4 Objective Data Active Medications Acetaminophen (Acetaminophen 325 Mg Tablet) 650 mg PO Q6H PRN PRN Reason: Pain, Mild 1-3,fever,headache Albuterol/Ipratropium (Albuterol/Iprat 2.5/0.5mg 3 Ml Ampul.Neb) 3 ml INHALE Q4H PRN PRN Reason: Shortness of Breath/Wheezing Aspirin (Aspirin 81 Mg Tab.Chew) 81 mg PO DAILY [facility] Last Admin: 01/24/25 11:25 Dose: 81 mg Documented By: GUIDO Atorvastatin Calcium (Atorvastatin Calcium 80 Mg Tablet) 80 mg PO BEDTIME [facility] Last Admin: 01/23/25 20:44 Dose: 80 mg Documented By: YAMINI Benztropine Mesylate (Benztropine Mesylate 1 Mg Tablet) 1 mg PO BID [facility] Last Admin: 01/24/25 11:25 Dose: 1 mg Documented By: GUIDO Betamethasone Dipropion Augmented (Betamethasone Dip Aug 0.05% Cr 15 Gm Tube) 1 appl TOPICAL DAILY [facility] Last Admin: 01/24/25 09:34 Dose: Not Given Documented By: GUIDO Non-Admin Reason: Patient Refused Bisacodyl (Bisacodyl 10 Mg Supp.Rect) 10 mg NC DAILY PRN PRN Reason: Constipation Calcium Carbonate (Calcium Carbonate 750 Mg Tab.Chew) 750 mg PO Q4H PRN PRN Reason: Heartburn Dextrose (Dextrose 50 % 25 Gm/50 Ml Syringe) 25 gm IVPUSH Q15M PRN; Protocol PRN Reason: per Hypoglycemia Standing Ord. Glucose (Glucose Gel 15 Gm Gel..Gram.) 15 gm PO Q15M PRN; Protocol PRN Reason: per Hypoglycemia Standing Ord. Insulin Human Lispro (Insulin Lispro 100 Unit/Ml 3 Ml Vial) 0 unit SUBCUT QIDACHS [facility]; Protocol Last Admin: 01/24/25 16:18 Dose: Not Given Documented By: GUIDO Non-Admin Reason: No Insulin Coverage Magnesium Hydroxide (Milk Of Magnesia 30 Ml Oral.Susp) 30 ml PO DAILY PRN PRN Reason: Constipation Magnesium Oxide (Magnesium Oxide 400 Mg Tablet) 400 mg PO BID [facility] Last Admin: 01/24/25 11:25 Dose: 400 mg Documented By: GUIDO Melatonin (Melatonin 3 Mg Tablet) 6 mg PO BEDTIME PRN PRN Reason: Insomnia Last Admin: 01/23/25 20:44 Dose: 6 mg Documented By: YAMINI Meropenem (Meropenem 1 Gm Vial) 1 gm IVPUSH Q8H [facility] Last Admin: 01/24/25 11:26 Dose: 1 gm Documented By: GUIDO Metoprolol Tartrate (Metoprolol Tartrate 5 Mg/5 Ml Vial) 2.5 mg IVPUSH Q6H PRN; Protocol PRN Reason: Heart Rate >100 Metoprolol Tartrate (Metoprolol Tartrate 25 Mg Tablet) 25 mg PO BID [facility]; Protocol Last Admin: 01/24/25 11:24 Dose: 25 mg Documented By: GUIDO Midodrine (Midodrine Hcl 2.5 Mg Tablet) 2.5 mg PO Q5H PRN PRN Reason: SBP<90 Omeprazole (Omeprazole 20 Mg Capsule.Dr) 20 mg PO DAILY@0630 [facility] Last Admin: 01/24/25 05:52 Dose: 20 mg Documented By: YAMINI Ondansetron HCl (Ondansetron Hcl 4 Mg/2 Ml Vial) 4 mg IVPUSH Q8H PRN PRN Reason: Nausea and Vomiting Perphenazine (Perphenazine 8 Mg Tablet) 32 mg PO BID [facility] Last Admin: 01/24/25 11:25 Dose: 32 mg Documented By: GUIDO Polyethylene Glycol (Polyethylene Glycol 3350 17 Gm Powd.Pack) 17 gm PO DAILY PRN PRN Reason: Constipation Risperidone (Risperidone 2 Mg Tablet) 4 mg PO BID [facility] Last Admin: 01/24/25 11:25 Dose: 4 mg Documented By: GUIDO Senna (Sennosides 8.6 Mg Tablet) 17.2 mg PO BEDTIME [facility] Last Admin: 01/23/25 20:44 Dose: 17.2 mg Documented By: YAMINI Sodium Biphosphate/Sodium Phosphate (Sodium Phosphate,[place]-Dibasic 133 Ml Enema) 118 ml NC DAILY PRN PRN Reason: Constipation Sodium Chloride (0.9 % Sodium Chloride Flush 3 Ml Syringe) 3 ml IVFLUSH QSHIFT [facility] Last Admin: 01/24/25 16:18 Dose: Not Given Documented By: GUIDO Non-Admin Reason: Previously Administered Valproic Acid (Valproic Acid Liquid 250 Mg/5 Ml Solution) 1,000 mg PO BEDTIME [facility] Last Admin: 01/23/25 20:43 Dose: 1,000 mg Documented By: YAMINI Valproic Acid (Valproic Acid Liquid 250 Mg/5 Ml Solution) 750 mg PO DAILY [facility] Last Admin: 01/24/25 11:26 Dose: 750 mg Documented By: GUIDO Labs 01/24/25 06:49 01/24/25 06:49 Labs: Laboratory Results - last 24 hr 01/23/25 01/24/25 01/24/25 20:45 06:49 06:54 MCV 98.0 MCH 32.9 MCHC 33.6 RDW 14.2 Plt Count 87 L MPV 11.1 Absolute Nucleated RBC 0.000 Nucleated RBC % (auto) 0.0 Anion Gap 9 L Estim Creat Clear Calc 154.1 Estimated GFR > 60 POC Glucose 102 83 Random Glucose 83 Calcium 8.7 01/24/25 01/24/25 11:10 16:04 MCV MCH MCHC RDW Plt Count MPV Absolute Nucleated RBC Nucleated RBC % (auto) Anion Gap Estim Creat Clear Calc Estimated GFR POC Glucose 100 97 Random Glucose Calcium Microbiology Microbiology Results: Microbiology 01/21/25 23:35 Blood Culture - Preliminary Blood - Venous No growth after 48 hours. 01/22/25 Unknown Urine Culture - Final Urine Catheterized - Straight Catheter Escherichia coli 01/21/25 23:35 Blood Culture - Preliminary Blood - Venous No growth after 48 hours. Assessment and Plan (1) UTI (urinary tract infection): Status: Acute Assessment and Plan: Sepsis secondary to UTI with high grade temps and required cooling blanket, temp now normal Urine culture GNR Started on Ceftriaxone, changed to Ertapenem d/t persistent fever CT of A/P: limited study, no acute abdominal process (2) Sepsis: Status: Acute Assessment and Plan: Sepsis secondary to UTI with high grade temps and required cooling blanket, temp now normal Urine culture GNR Started on Ceftriaxone, changed to Ertapenem d/t persistent fever CT of A/P: limited study, no acute abdominal process (3) Delirium: Status: Acute Assessment and Plan: Secondary to sepsis. Septic encephalopathy improving and returning to baseline cognitive status. (4) Atrial fibrillation with rapid ventricular response: Status: Acute Assessment and Plan: AFIB RVR, HR has topped 160, likely from sepsis, given IV metoprolol, cardiazem IV and later dig loading, HR is better IV dig, cardiology consult. No anticoagulation in past 2/2 ITP (5) Chronic ITP (idiopathic thrombocytopenia): Status: Acute Assessment and Plan: Chronic ITP PLTs 77 No lovenox due to PLT count No obvious evidence of spontaneous Bleeding H/H stable Monitor CBC Total time managing care of this patient today: 35 minutes. Quality Stroke Does the patient have a stroke diagnosis?: No Reason for No Anti-thrombotic by Day Two: N/A - Med Ordered VTE Prior VTE?: No VTE Risk Level:: Medical - moderate - high VTE Device Contraindication: N/A - Device Ordered VTE Drug Contraindication: Treatment Not Tolerated (ITP contraindicated)
[2025-01-24 19:56] VITALS: BP 134/66; PULSE 88; RESP 20; TEMP 37.6; O2SAT 97
[2025-01-24 21:06] LABS: Glucose, Whole Blood 109 mg/dL (60-115)
[2025-01-24] MEDS: Valproic Acid Liquid 250 MG/5 ML SOLUTION 1000 MG PO (21:23)
[2025-01-24] MEDS: 0.9 % Sodium Chloride Flush 3 ML SYRINGE IVFLUSH (21:24)
[2025-01-24 23:22] VITALS: BP 147/71; PULSE 87; RESP 20; TEMP 36.1; O2SAT 95
[2025-01-25 04:00] VITALS: BP 139/89; PULSE 85; RESP 20; TEMP 36.3; O2SAT 95
[2025-01-25 06:53] LABS: MANUAL DIFF FLAG NO
[2025-01-25 07:11] LABS: Hematocrit 32.7 % (42.0-52.0); Hemoglobin 10.9 g/dl (14.0-18.0); Imm Gran Abs Auto 0.03 X10*3/uL (0.00-0.03); Imm Gran Pct Auto 0.5 % (0.0-0.4); Lymphocytes Absolute Auto 1.6 X10*3/uL (1.2-4.9); Mean Corpuscular HGB Conc 33.3 g/dl (31.0-36.0); Mean Corpuscular Hemoglobin 32.5 pg (27.0-33.0); Mean Corpuscular Volume 97.6 fL (80.0-98.0); NRBC Abs Auto 0.000 X10*3/uL (0.0-0.012); NRBC Pct Auto 0.0 /100WBC (0.0-0.2); Platelet Count 103 X10*3/uL (160-400); Red Blood Count 3.35 X10*6/uL (4.60-5.80); White Blood Count 6.3 X10*3/uL (4.8-10.8)
[2025-01-25 07:27] LABS: Alanine Aminotransferase 43 U/L (0-40); Albumin Level 2.7 g/dL (3.5-5.0); Alkaline Phosphatase 72 U/L (39-117); Anion Gap 10 (12-20); Aspartate Amino Transferase 55 U/L (5-37); B Type Natriuretic Peptide 945 pg/mL (<100); Blood Urea Nitrogen 6 mg/dL (9-16); Calcium 8.2 mg/dL (8.4-10.2); Carbon Dioxide 27 mmol/L (22-29); Chloride 107 mmol/L (96-108); Creatinine Clr Calc Pharmacy 188.3; Estimated Glomerular Filt Rate > 60; Potassium 3.7 mmol/L (3.3-5.1); Sodium 140 mmol/L (135-145); Total Protein 5.3 g/dL (6.5-8.0)
[2025-01-25 07:58] LABS: Glucose, Whole Blood 85 mg/dL (60-115)
[2025-01-25 08:00] VITALS: BP 131/79; PULSE 78; RESP 18; TEMP 36.2; O2SAT 98
[2025-01-25] MEDS: 0.9 % Sodium Chloride Flush 3 ML SYRINGE IVFLUSH ×2 (08:58→22:53)
[2025-01-25] MEDS: Sulfamethox/Trimeth 800/160 TABLET 1 TAB PO ×2 (11:20→22:47)
[2025-01-25] MEDS: levETIRAcetam Oral Soln 500 MG/5 ML 750 MG PO (11:26)
[2025-01-25 11:27] LABS: Glucose, Whole Blood 113 mg/dL (60-115)
[2025-01-25 11:58] VITALS: BP 128/81; PULSE 68; RESP 18; TEMP 36.2; O2SAT 96
--- NOTE | 2025-01-25 13:50 | PC.NURSE ---
pt has urinary retention, bladder scanned 513ml, straight cath done at 1200 per MD order w 580ml yellow urine output. pt dt void at [id number]
--- NOTE | 2025-01-25 14:00 | MHC.SL.SWA ---
Speech Pathologist Impression: Risk of Aspiration Due to: Dysphasia Diet Status: Continue GROUND/MECH ALTERED (NDD2) and THIN liquids. Pt requires assistance with tray set up and supervision at meals, to maximize independence. Per [facility] PROCESSING LEAD, pt's baseline is NDD3/thin based on MBSS done in September 2024 (w/o dentures). Pt independent feed at baseline. Pt in process of getting new dentures. Liquid Consistency and Strategies for Safe Swallow: Liquid Intake Recommendation: Thin Liquid Intake Strategies: Small Sips Solid Food Consistency: Dietary Recommendations: Grnd/Mech Altered (NDD2) Additional Modifications to Solid Foods: Oral Medication Intake: Whole with Puree Please contact the pharmacy regarding appropriate crushable or liquid drug formulations that are available whenever modified delivery is recommended. Compensatory Strategies and Precautions to be Taken for Safe Swallow: Sitting Upright (90 deg) Alternate Liquids/Solids Oral Check Supervision While Eating and Drinking for Safe Swallow: Direct Supervision (1:1) Foods to Avoid: Swallowing Recommended Treatments: Compens. Strategy Educat. Recommendation for Speech: Inpatient Speech Therapy Comment: Pt seen for toleration of diet at breakfast this a.m. Patient had tray in front of him, had started eating breakfast independently, though was asking for assistance to find sweetener for oatmeal. Patient was able to self feed oatmeal, though at times his hands were tremulous. Patient consumed oatmeal, some of his bananas, some bites of egg and drank from straw. Patient need various assistance with putting sugar on oatmeal, having straws placed in containers, and orientation to food on tray. With this level of assistance patient able to be independent in feeding. Frequency/Duration: Daily M-F Date Range for Service Req: Timeline to reassess: Senior Recruitment Consultant Clinican/Clinical Fellow: No Supervisory Statement: I have reviewed and agree with the student/clinical fellow's documentation: N/A Speech Language Pathologist: Zaria Oconnell M.A., CCC-PROCESSING LEAD
--- NOTE | 2025-01-25 15:45 | P.PNIM_ITS ---
Subjective Subjective Date of Service: 01/25/25 Interval History: Very pleasant 69 year old male with dementia and delirium (resolving), representing an unreliable historian. No overt complaints. No concerning findings, signs or symptoms. Cultures returned for EColi pansensitive. Transitioned to PO antibiotics; TMP-SMX BID PO The patient had been straight catheterixzed for finding of 510cc urine on bladder scan; will monitor tonight, and avoid ocdy if we can. Review of Systems Review of Systems: Yes Unobtainable due to mental status Physical Exam 2 Exam: Exam: General: A&O x3, oriented to time place person and siutaion, comfortable, no pain Cardiac: S1, S2 auscultated with no S3/4, ejection systolic murmur auscultated at RUSB without radiation. Well perfused. Respiratory: Normal breath sounds auscultated throughout all lung zones, without wheezing, rales. Normal rate. GI/ : No abdominal pain on palpation, no masses or distentions. MSK: Normal ambulation without pain at bony prominences or musculature Neurological: Normal neurological examination on overview, without obvious CN II-XII abnormalities. Vital Signs: Vital Signs: Last Vital Signs Temp 97.2 F 01/25/25 11:58 Pulse 68 01/25/25 11:58 Resp 18 01/25/25 11:58 BP 128/81 01/25/25 11:58 Pulse Ox 96 01/25/25 11:58 O2 Del Method Room Air 01/25/25 11:58 O2 Flow Rate 6 01/22/25 15:55 BMI result Body Mass Index 29.4 Const: Other: General: More awake, alert, oriented to self Resp: CTA bilateral CVS: S1,S2,RRR GI: +BS, NT, no distention Skin: No rash Neuro: motor grossly intact Psych: appropriate affect Objective Data Active Medications Acetaminophen (Acetaminophen 325 Mg Tablet) 650 mg PO Q6H PRN PRN Reason: Pain, Mild 1-3,fever,headache Albuterol/Ipratropium (Albuterol/Iprat 2.5/0.5mg 3 Ml Ampul.Neb) 3 ml INHALE Q4H PRN PRN Reason: Shortness of Breath/Wheezing Aspirin (Aspirin 81 Mg Tab.Chew) 81 mg PO DAILY [facility] Last Admin: 01/25/25 08:44 Dose: 81 mg Documented By: ADALGISA Atorvastatin Calcium (Atorvastatin Calcium 80 Mg Tablet) 80 mg PO BEDTIME [facility] Last Admin: 01/24/25 21:24 Dose: 80 mg Documented By: JOHN Benztropine Mesylate (Benztropine Mesylate 1 Mg Tablet) 1 mg PO BID [facility] Last Admin: 01/25/25 08:44 Dose: 1 mg Documented By: ADALGISA Betamethasone Dipropion Augmented (Betamethasone Dip Aug 0.05% Cr 15 Gm Tube) 1 appl TOPICAL DAILY [facility] Last Admin: 01/25/25 10:11 Dose: Not Given Documented By: ADALGISA Non-Admin Reason: Patient Refused Bisacodyl (Bisacodyl 10 Mg Supp.Rect) 10 mg [place] DAILY PRN PRN Reason: Constipation Calcium Carbonate (Calcium Carbonate 750 Mg Tab.Chew) 750 mg PO Q4H PRN PRN Reason: Heartburn Dextrose (Dextrose 50 % 25 Gm/50 Ml Syringe) 25 gm IVPUSH Q15M PRN; Protocol PRN Reason: per Hypoglycemia Standing Ord. Glucose (Glucose Gel 15 Gm Gel..Gram.) 15 gm PO Q15M PRN; Protocol PRN Reason: per Hypoglycemia Standing Ord. Insulin Human Lispro (Insulin Lispro 100 Unit/Ml 3 Ml Vial) 0 unit SUBCUT QIDACHS [facility]; Protocol Last Admin: 01/25/25 11:50 Dose: Not Given Documented By: ADALGISA Non-Admin Reason: No Insulin Coverage Magnesium Hydroxide (Milk Of Magnesia 30 Ml Oral.Susp) 30 ml PO DAILY PRN PRN Reason: Constipation Magnesium Oxide (Magnesium Oxide 400 Mg Tablet) 400 mg PO BID [facility] Last Admin: 01/25/25 08:44 Dose: 400 mg Documented By: ADALGISA Melatonin (Melatonin 3 Mg Tablet) 6 mg PO BEDTIME PRN PRN Reason: Insomnia Last Admin: 01/23/25 20:44 Dose: 6 mg Documented By: YAMINI Metoprolol Tartrate (Metoprolol Tartrate 5 Mg/5 Ml Vial) 2.5 mg IVPUSH Q6H PRN; Protocol PRN Reason: Heart Rate >100 Metoprolol Tartrate (Metoprolol Tartrate 25 Mg Tablet) 25 mg PO BID [facility]; Protocol Last Admin: 01/25/25 08:44 Dose: 25 mg Documented By: ADALGISA Midodrine (Midodrine Hcl 2.5 Mg Tablet) 2.5 mg PO Q5H PRN PRN Reason: SBP<90 Omeprazole (Omeprazole 20 Mg Capsule.Dr) 20 mg PO DAILY@0630 [facility] Last Admin: 01/25/25 06:32 Dose: 20 mg Documented By: JOHN Ondansetron HCl (Ondansetron Hcl 4 Mg/2 Ml Vial) 4 mg IVPUSH Q8H PRN PRN Reason: Nausea and Vomiting Perphenazine (Perphenazine 8 Mg Tablet) 32 mg PO BID [facility] Last Admin: 01/25/25 08:44 Dose: 32 mg Documented By: ADALGISA Polyethylene Glycol (Polyethylene Glycol 3350 17 Gm Powd.Pack) 17 gm PO DAILY PRN PRN Reason: Constipation Risperidone (Risperidone 2 Mg Tablet) 4 mg PO BID [facility] Last Admin: 01/25/25 08:44 Dose: 4 mg Documented By: ADALGISA Senna (Sennosides 8.6 Mg Tablet) 17.2 mg PO BEDTIME [facility] Last Admin: 01/24/25 21:23 Dose: 17.2 mg Documented By: JOHN Sodium Biphosphate/Sodium Phosphate (Sodium Phosphate,[place]-Dibasic 133 Ml Enema) 118 ml [place] DAILY PRN PRN Reason: Constipation Sodium Chloride (0.9 % Sodium Chloride Flush 3 Ml Syringe) 3 ml IVFLUSH QSHIFT [facility] Last Admin: 01/25/25 15:31 Dose: Not Given Documented By: ADALGISA Non-Admin Reason: Previously Administered Trimethoprim/Sulfamethoxazole (Sulfamethox/Trimeth 800/160 Tablet) 1 tab PO Q12H [facility] Last Admin: 01/25/25 11:20 Dose: 1 tab Documented By: ADALGISA Valproic Acid (Valproic Acid Liquid 250 Mg/5 Ml Solution) 1,000 mg PO BEDTIME [facility] Last Admin: 01/24/25 21:23 Dose: 1,000 mg Documented By: JOHN Valproic Acid (Valproic Acid Liquid 250 Mg/5 Ml Solution) 750 mg PO DAILY [facility] Last Admin: 01/24/25 11:26 Dose: 750 mg Documented By: FOSTEKR Labs 01/25/25 05:59 01/25/25 05:59 Labs: Laboratory Results - last 24 hr 01/24/25 01/24/25 01/25/25 16:04 20:52 05:59 MCV 97.6 MCH 32.5 MCHC 33.3 RDW 13.8 Plt Count 103 L MPV 10.8 Immature Gran % (Auto) 0.5 H Neut % (Auto) 60.2 Lymph % (Auto) 25.9 [place] % (Auto) 11.2 H Eos % (Auto) 1.6 Baso % (Auto) 0.6 Lymph # (Auto) 1.6 [place] # (Auto) 0.7 Eos # (Auto) 0.1 Baso # (Auto) 0.0 Abs Immat Gran (auto) 0.03 Absolute Neuts (auto) 3.8 Absolute Nucleated RBC 0.000 Nucleated RBC % (auto) 0.0 Anion Gap 10 L Estim Creat Clear Calc 188.3 Estimated GFR > 60 POC Glucose 97 109 Random Glucose 88 Calcium 8.2 L Total Bilirubin 0.7 AST 55 H ALT 43 H Alkaline Phosphatase 72 B-Natriuretic Peptide 945 H Total Protein 5.3 L Albumin 2.7 L 01/25/25 01/25/25 07:51 11:21 MCV MCH MCHC RDW Plt Count MPV Immature Gran % (Auto) Neut % (Auto) Lymph % (Auto) [place] % (Auto) Eos % (Auto) Baso % (Auto) Lymph # (Auto) [place] # (Auto) Eos # (Auto) Baso # (Auto) Abs Immat Gran (auto) Absolute Neuts (auto) Absolute Nucleated RBC Nucleated RBC % (auto) Anion Gap Estim Creat Clear Calc Estimated GFR POC Glucose 85 113 Random Glucose Calcium Total Bilirubin AST ALT Alkaline Phosphatase B-Natriuretic Peptide Total Protein Albumin Microbiology Microbiology Results: Microbiology 01/21/25 23:35 Blood Culture - Preliminary Blood - Venous No growth after 48 hours. Assessment and Plan (1) UTI (urinary tract infection): Status: Acute Assessment and Plan: Sepsis secondary to UTI with high grade temps and required cooling blanket, temp now normal Urine culture GNR Discontinued Ertapenem post culture for pansensitive EColi on cultures. CT of A/P: limited study, no acute abdominal process Started TMP-SMX BID PO for complicated UTI management. (2) Sepsis: Status: Acute Assessment and Plan: Sepsis secondary to UTI with high grade temps and required cooling blanket, temp now normal Urine culture GNR Discontinued Ertapenem post culture for pansensitive EColi on cultures. CT of A/P: limited study, no acute abdominal process Started TMP-SMX BID PO for complicated UTI management. (3) Delirium: Status: Acute Assessment and Plan: Secondary to sepsis. Septic encephalopathy improving and returning to baseline cognitive status. Discontinued Ertapenem post culture for pansensitive EColi on cultures. Started TMP-SMX BID PO for complicated UTI management. (4) Atrial fibrillation with rapid ventricular response: Status: Acute Assessment and Plan: AFIB RVR, HR has topped 160, likely from sepsis, given IV metoprolol, cardiazem IV and later dig loading, HR is better IV dig, cardiology consult. No anticoagulation in past 2/2 ITP (5) Chronic ITP (idiopathic thrombocytopenia): Status: Acute Assessment and Plan: Chronic ITP PLTs 77 No lovenox due to PLT count No obvious evidence of spontaneous Bleeding H/H stable Monitor CBC Total time managing care of this patient today: 35 minutes. Quality Stroke Does the patient have a stroke diagnosis?: No Reason for No Anti-thrombotic by Day Two: N/A - Med Ordered VTE Prior VTE?: No VTE Risk Level:: Medical - moderate - high VTE Device Contraindication: N/A - Device Ordered VTE Drug Contraindication: Treatment Not Tolerated (ITP contraindicated)
[2025-01-25 16:00] VITALS: BP 125/69; PULSE 71; RESP 18; TEMP 35.2; O2SAT 96
[2025-01-25 16:36] LABS: Glucose, Whole Blood 98 mg/dL (60-115)
[2025-01-25 18:06] VITALS: TEMP 36.7
[2025-01-25 20:00] VITALS: BP 133/76; PULSE 71; RESP 20; TEMP 36.7; O2SAT 93
[2025-01-25 21:52] LABS: Glucose, Whole Blood 113 mg/dL (60-115)
[2025-01-25] MEDS: Valproic Acid Liquid 250 MG/5 ML SOLUTION 1000 MG PO (22:52)
[2025-01-26] VITALS (8 sets, daily range): BP systolic 106–156; BP diastolic 59–78; PULSE 74–82; RESP 16–20; TEMP 36.2–37; O2SAT 93–100
--- NOTE | 2025-01-26 | ECG_ITS ---
Test Reason : 5 beats of vt Blood Pressure : */* mmHG Vent. Rate : 77 BPM Atrial Rate : * BPM P-R Int : * ms QRS Dur : 94 ms QT Int : 396 ms P-R-T Axes : * -11 59 degrees QTcB Int : 448 ms Atrial fibrillation with premature ventricular or aberrantly conducted complexes Abnormal ECG When compared with ECG of 22-Jan-2025 08:21, Vent. rate has decreased by 86 bpm QRS axis Shifted right ST no longer depressed in Anterior leads Nonspecific T wave abnormality, improved in Lateral leads Referred By: Nava Rogers Electronically Signed By: KOKI MARCANO
[2025-01-26 07:23] LABS: Glucose, Whole Blood 71 mg/dL (60-115)
[2025-01-26] MEDS: Valproic Acid Liquid 250 MG/5 ML SOLUTION 750 MG PO (08:20)
[2025-01-26 08:40] LABS: MANUAL DIFF FLAG NO
[2025-01-26] MEDS: 0.9 % Sodium Chloride Flush 3 ML SYRINGE IVFLUSH (08:48)
[2025-01-26 09:01] LABS: Anion Gap 12 (12-20); Blood Urea Nitrogen 6 mg/dL (9-16); Calcium 8.5 mg/dL (8.4-10.2); Carbon Dioxide 28 mmol/L (22-29); Chloride 106 mmol/L (96-108); Creatinine Clr Calc Pharmacy 166.2; Estimated Glomerular Filt Rate > 60; Potassium 4.1 mmol/L (3.3-5.1); Sodium 142 mmol/L (135-145)
[2025-01-26 09:06] LABS: Hematocrit 34.6 % (42.0-52.0); Hemoglobin 11.8 g/dl (14.0-18.0); Imm Gran Abs Auto 0.03 X10*3/uL (0.00-0.03); Imm Gran Pct Auto 0.6 % (0.0-0.4); Lymphocytes Absolute Auto 2.0 X10*3/uL (1.2-4.9); Mean Corpuscular HGB Conc 34.1 g/dl (31.0-36.0); Mean Corpuscular Hemoglobin 32.6 pg (27.0-33.0); Mean Corpuscular Volume 95.6 fL (80.0-98.0); NRBC Abs Auto 0.000 X10*3/uL (0.0-0.012); NRBC Pct Auto 0.0 /100WBC (0.0-0.2); Platelet Count 134 X10*3/uL (160-400); Red Blood Count 3.62 X10*6/uL (4.60-5.80); White Blood Count 5.3 X10*3/uL (4.8-10.8)
[2025-01-26] MEDS: Sulfamethox/Trimeth 800/160 TABLET 1 TAB PO ×2 (09:54→22:45)
--- NOTE | 2025-01-26 10:01 | MHC.SL.SWA ---
Speech Pathologist Impression: Risk of Aspiration, Oral Phase Dysphagia Risk of Aspiration Due to: Dementia Dysphasia Diet Status: Continue GROUND/MECH ALTERED (NDD2) and THIN liquids. Pt requires assistance with tray set up and supervision at meals, to maximize independence. Per [facility] SCHOOL PHOTOGRAPH EDITOR, pt's baseline is NDD3/thin based on MBSS done in September 2024 (w/o dentures). Pt independent feed at baseline. Pt in process of getting new dentures. Liquid Consistency and Strategies for Safe Swallow: Liquid Intake Recommendation: Thin Liquid Intake Strategies: Small Sips Solid Food Consistency: Dietary Recommendations: Grnd/Mech Altered (NDD2) Additional Modifications to Solid Foods: Oral Medication Intake: Whole with Puree Please contact the pharmacy regarding appropriate crushable or liquid drug formulations that are available whenever modified delivery is recommended. Compensatory Strategies and Precautions to be Taken for Safe Swallow: Sitting Upright (90 deg) Alternate Liquids/Solids Oral Check Supervision While Eating and Drinking for Safe Swallow: Direct Supervision (1:1) Swallowing Recommended Treatments: Compens. Strategy Educat. Recommendation for Speech: Inpatient Speech Therapy Comment: Recommend NDD2 at this time d/t prolonged mastication. 1-1 assist d/t tremor. Frequency/Duration: Daily M-F Date Range for Service Req: Timeline to reassess: Machine Maintenance Clinican/Clinical Fellow: No Supervisory Statement: I have reviewed and agree with the student/clinical fellow's documentation: N/A Speech Language Pathologist: Senia Thurman M.A., CCC-SCHOOL PHOTOGRAPH EDITOR
[2025-01-26 11:13] LABS: Glucose, Whole Blood 95 mg/dL (60-115)
--- NOTE | 2025-01-26 11:43 | MHC.CM.PN ---
Patient is not yet medically cleared for dc (Sepsis); returning to [facility]TC is the goal and CM will continue to follow.
--- NOTE | 2025-01-26 14:07 | P.PNIM_ITS ---
Subjective Subjective Date of Service: 01/26/25 Interval History: Very pleasant 69 year old male with dementia and delirium (resolving), representing an unreliable historian. No overt complaints. No concerning findings, signs or symptoms. Patient is comfortable conversing pleasantly. Issue with urination noting incontinence episodes as well as needing to be straight catheterized for 500cc full bladder. The patient has no other issues. Discharge dependent on successful voiding trial x24 hours. Review of Systems Review of Systems: Yes Unobtainable due to mental status Physical Exam 2 Vital Signs: Vital Signs: Last Vital Signs Temp 97.9 F 01/26/25 11:54 Pulse 75 01/26/25 11:54 Resp 18 01/26/25 11:54 BP 106/63 01/26/25 11:54 Pulse Ox 93 01/26/25 11:54 O2 Del Method Room Air 01/26/25 11:54 O2 Flow Rate 6 01/22/25 15:55 BMI result Body Mass Index 29.4 Const: Other: General: More awake, alert, oriented to self Resp: CTA bilateral CVS: S1,S2,RRR GI: +BS, NT, no distention Skin: No rash Neuro: motor grossly intact Psych: appropriate affect Objective Data Active Medications Acetaminophen (Acetaminophen 325 Mg Tablet) 650 mg PO Q6H PRN PRN Reason: Pain, Mild 1-3,fever,headache Albuterol/Ipratropium (Albuterol/Iprat 2.5/0.5mg 3 Ml Ampul.Neb) 3 ml INHALE Q4H PRN PRN Reason: Shortness of Breath/Wheezing Aspirin (Aspirin 81 Mg Tab.Chew) 81 mg PO DAILY [facility] Last Admin: 01/26/25 08:21 Dose: 81 mg Documented By: ADALGISA Atorvastatin Calcium (Atorvastatin Calcium 80 Mg Tablet) 80 mg PO BEDTIME [facility] Last Admin: 01/25/25 22:47 Dose: 80 mg Documented By: JOHN Benztropine Mesylate (Benztropine Mesylate 1 Mg Tablet) 1 mg PO BID [facility] Last Admin: 01/26/25 08:21 Dose: 1 mg Documented By: ADALGISA Betamethasone Dipropion Augmented (Betamethasone Dip Aug 0.05% Cr 15 Gm Tube) 1 appl TOPICAL DAILY [facility] Last Admin: 01/26/25 08:48 Dose: Not Given Documented By: ADALGISA Non-Admin Reason: Patient Refused Bisacodyl (Bisacodyl 10 Mg Supp.Rect) [address] DAILY PRN PRN Reason: Constipation Calcium Carbonate (Calcium Carbonate 750 Mg Tab.Chew) 750 mg PO Q4H PRN PRN Reason: Heartburn Dextrose (Dextrose 50 % 25 Gm/50 Ml Syringe) 25 gm IVPUSH Q15M PRN; Protocol PRN Reason: per Hypoglycemia Standing Ord. Glucose (Glucose Gel 15 Gm Gel..Gram.) 15 gm PO Q15M PRN; Protocol PRN Reason: per Hypoglycemia Standing Ord. Insulin Human Lispro (Insulin Lispro 100 Unit/Ml 3 Ml Vial) 0 unit SUBCUT QIDACHS [facility]; Protocol Last Admin: 01/26/25 11:26 Dose: Not Given Documented By: ADALGISA Non-Admin Reason: No Insulin Coverage Magnesium Hydroxide (Milk Of Magnesia 30 Ml Oral.Susp) 30 ml PO DAILY PRN PRN Reason: Constipation Magnesium Oxide (Magnesium Oxide 400 Mg Tablet) 400 mg PO BID [facility] Last Admin: 01/26/25 08:21 Dose: 400 mg Documented By: ADALGISA Melatonin (Melatonin 3 Mg Tablet) 6 mg PO BEDTIME PRN PRN Reason: Insomnia Last Admin: 01/23/25 20:44 Dose: 6 mg Documented By: YAMINI Metoprolol Tartrate (Metoprolol Tartrate 5 Mg/5 Ml Vial) 2.5 mg IVPUSH Q6H PRN; Protocol PRN Reason: Heart Rate >100 Metoprolol Tartrate (Metoprolol Tartrate 25 Mg Tablet) 25 mg PO BID [facility]; Protocol Last Admin: 01/26/25 08:20 Dose: 25 mg Documented By: ADALGISA Midodrine (Midodrine Hcl 2.5 Mg Tablet) 2.5 mg PO Q5H PRN PRN Reason: SBP<90 Omeprazole (Omeprazole 20 Mg Capsule.) 20 mg PO DAILY@0630 [facility] Last Admin: 01/26/25 05:44 Dose: 20 mg Documented By: JOHN Ondansetron HCl (Ondansetron Hcl 4 Mg/2 Ml Vial) 4 mg IVPUSH Q8H PRN PRN Reason: Nausea and Vomiting Perphenazine (Perphenazine 8 Mg Tablet) 32 mg PO BID [facility] Last Admin: 01/26/25 08:22 Dose: 32 mg Documented By: ADALGISA Polyethylene Glycol (Polyethylene Glycol 3350 17 Gm Powd.Pack) 17 gm PO DAILY PRN PRN Reason: Constipation Risperidone (Risperidone 2 Mg Tablet) 4 mg PO BID [facility] Last Admin: 01/26/25 08:21 Dose: 4 mg Documented By: ADALGISA Senna (Sennosides 8.6 Mg Tablet) 17.2 mg PO BEDTIME [facility] Last Admin: 01/25/25 22:47 Dose: 17.2 mg Documented By: JOHN Sodium Biphosphate/Sodium Phosphate (Sodium Phosphate,[place]-Dibasic 133 Ml Enema) [address] DAILY PRN PRN Reason: Constipation Sodium Chloride (0.9 % Sodium Chloride Flush 3 Ml Syringe) 3 ml IVFLUSH QSHIFT [facility] Last Admin: 01/26/25 08:48 Dose: 3 ml Documented By: ADALGISA Tamsulosin HCl (Tamsulosin Hcl 0.4 Mg Capsule) 0.4 mg PO DAILY [facility] Last Admin: 01/26/25 09:54 Dose: 0.4 mg Documented By: ABDIRASHID Trimethoprim/Sulfamethoxazole (Sulfamethox/Trimeth 800/160 Tablet) 1 tab PO Q12H [facility] Last Admin: 01/26/25 09:54 Dose: 1 tab Documented By: ABDIRASHID Valproic Acid (Valproic Acid Liquid 250 Mg/5 Ml Solution) 1,000 mg PO BEDTIME [facility] Last Admin: 01/25/25 22:52 Dose: 1,000 mg Documented By: JOHN Valproic Acid (Valproic Acid Liquid 250 Mg/5 Ml Solution) 750 mg PO DAILY [facility] Last Admin: 01/26/25 08:20 Dose: 750 mg Documented By: ADALGISA Labs 01/26/25 08:27 01/26/25 08:27 Labs: Laboratory Results - last 24 hr 01/25/25 01/25/25 01/26/25 16:32 21:37 07:14 MCV MCH MCHC RDW Plt Count MPV Immature Gran % (Auto) Neut % (Auto) Lymph % (Auto) Morton % (Auto) Eos % (Auto) Baso % (Auto) Lymph # (Auto) Morton # (Auto) Eos # (Auto) Baso # (Auto) Abs Immat Gran (auto) Absolute Neuts (auto) Absolute Nucleated RBC Nucleated RBC % (auto) Anion Gap Estim Creat Clear Calc Estimated GFR POC Glucose 98 113 71 Random Glucose Calcium 01/26/25 01/26/25 08:27 11:06 MCV 95.6 MCH 32.6 MCHC 34.1 RDW 13.6 Plt Count 134 L D MPV 9.9 Immature Gran % (Auto) 0.6 H Neut % (Auto) 45.7 Lymph % (Auto) 37.8 Morton % (Auto) 12.7 H Eos % (Auto) 2.6 Baso % (Auto) 0.6 Lymph # (Auto) 2.0 Morton # (Auto) 0.7 Eos # (Auto) 0.1 Baso # (Auto) 0.0 Abs Immat Gran (auto) 0.03 Absolute Neuts (auto) 2.4 Absolute Nucleated RBC 0.000 Nucleated RBC % (auto) 0.0 Anion Gap 12 Estim Creat Clear Calc 166.2 Estimated GFR > 60 POC Glucose 95 Random Glucose 82 Calcium 8.5 Microbiology Microbiology Results: Microbiology 01/21/25 23:35 Blood Culture - Preliminary Blood - Venous No growth after 48 hours. Assessment and Plan (1) UTI (urinary tract infection): Status: Acute Assessment and Plan: Sepsis secondary to UTI with high grade temps and required cooling blanket, temp now normal Urine culture GNR Discontinued Ertapenem post culture for pansensitive EColi on cultures. CT of A/P: limited study, no acute abdominal process Started TMP-SMX BID PO for complicated UTI management. (2) Sepsis: Status: Acute Assessment and Plan: Sepsis secondary to UTI with high grade temps and required cooling blanket, temp now normal Urine culture GNR Discontinued Ertapenem post culture for pansensitive EColi on cultures. CT of A/P: limited study, no acute abdominal process Started TMP-SMX BID PO for complicated UTI management. (3) Delirium: Status: Acute Assessment and Plan: Secondary to sepsis. Septic encephalopathy improving and returning to baseline cognitive status. Discontinued Ertapenem post culture for pansensitive EColi on cultures. Started TMP-SMX BID PO for complicated UTI management. (4) Atrial fibrillation with rapid ventricular response: Status: Acute Assessment and Plan: AFIB RVR, HR has topped 160, likely from sepsis, given IV metoprolol, cardiazem IV and later dig loading, HR is better IV dig, cardiology consult. No anticoagulation in past 2/2 ITP (5) Chronic ITP (idiopathic thrombocytopenia): Status: Acute Assessment and Plan: Chronic ITP PLTs 77 No lovenox due to PLT count No obvious evidence of spontaneous Bleeding H/H stable Monitor CBC (6) BPH (benign prostatic hyperplasia): Status: Acute Assessment and Plan: Intermittently incontinent of urine with some urinary retention. Has required straighrt catheterization post cody removal yesterday The patient was started on tamsulosin 0.4mg. Monitoring urinary status. Dependent discharge on successful voiding trial x24 hours. Total time managing care of this patient today: 35 minutes. Quality Stroke Does the patient have a stroke diagnosis?: No Reason for No Anti-thrombotic by Day Two: N/A - Med Ordered VTE Prior VTE?: No VTE Risk Level:: Medical - moderate - high VTE Device Contraindication: N/A - Device Ordered VTE Drug Contraindication: Treatment Not Tolerated (ITP contraindicated)
--- NOTE | 2025-01-26 14:11 | PC.NURSE ---
bladder scanned at 1200 w 540ml. straight cath performed at 1400 w 500ml yellow urine ouput. pt dt void at [id number]
[2025-01-26 16:13] LABS: Glucose, Whole Blood 113 mg/dL (60-115)
[2025-01-26 18:34] LABS: Anion Gap 12 (12-20); Blood Urea Nitrogen 8 mg/dL (9-16); Calcium 8.3 mg/dL (8.4-10.2); Carbon Dioxide 22 mmol/L (22-29); Chloride 106 mmol/L (96-108); Creatinine Clr Calc Pharmacy 154.1; Estimated Glomerular Filt Rate > 60; Magnesium 2.1 mg/dL (1.6-2.6); Potassium 4.2 mmol/L (3.3-5.1); Sodium 136 mmol/L (135-145)
[2025-01-26] MEDS: Valproic Acid Liquid 250 MG/5 ML SOLUTION 1000 MG PO (20:08)
[2025-01-26 21:22] LABS: Glucose, Whole Blood 122 mg/dL (60-115)
[2025-01-27] VITALS (7 sets, daily range): BP systolic 119–148; BP diastolic 64–80; PULSE 56–88; RESP 16–18; TEMP 36.3–37; O2SAT 96–99
[2025-01-27 07:47] LABS: Glucose, Whole Blood 102 mg/dL (60-115)
[2025-01-27] MEDS: Valproic Acid Liquid 250 MG/5 ML SOLUTION 750 MG PO (10:13)
[2025-01-27 11:47] LABS: Glucose, Whole Blood 110 mg/dL (60-115)
[2025-01-27] MEDS: Sulfamethox/Trimeth 800/160 TABLET 1 TAB PO ×2 (11:54→21:39)
[2025-01-27 15:57] LABS: Glucose, Whole Blood 104 mg/dL (60-115)
--- NOTE | 2025-01-27 16:19 | P.PNIM_ITS ---
Subjective Subjective Date of Service: 01/27/25 Interval History: Very pleasant 69 year old male with dementia and delirium (resolving), representing an unreliable historian. No overt complaints. No concerning findings, signs or symptoms. Patient is comfortable conversing pleasantly. Patient failed 24 hour clearance without straight cath. Required x1 the past 12 hours for cath of 325ml residual drainage of postvoid volume. May require another 24 hours prior to DC Review of Systems Review of Systems: Yes all other systems are reviewed and are negative Physical Exam 2 Vital Signs: Vital Signs: Last Vital Signs Temp 97.6 F 01/27/25 16:00 Pulse 71 01/27/25 16:00 Resp 18 01/27/25 16:00 BP 119/64 01/27/25 16:00 Pulse Ox 96 01/27/25 16:00 O2 Del Method Room Air 01/27/25 16:00 O2 Flow Rate 6 01/22/25 15:55 BMI result Body Mass Index 29.4 Const: Other: General: More awake, alert, oriented to self Resp: CTA bilateral CVS: S1,S2,RRR GI: +BS, NT, no distention Skin: No rash Neuro: motor grossly intact Psych: appropriate affect Objective Data Active Medications Acetaminophen (Acetaminophen 325 Mg Tablet) 650 mg PO Q6H PRN PRN Reason: Pain, Mild 1-3,fever,headache Albuterol/Ipratropium (Albuterol/Iprat 2.5/0.5mg 3 Ml Ampul.Neb) 3 ml INHALE Q4H PRN PRN Reason: Shortness of Breath/Wheezing Aspirin (Aspirin 81 Mg Tab.Chew) 81 mg PO DAILY [facility] Last Admin: 01/27/25 10:21 Dose: 81 mg Documented By: JAGDEEP Atorvastatin Calcium (Atorvastatin Calcium 80 Mg Tablet) 80 mg PO BEDTIME [facility] Last Admin: 01/26/25 20:07 Dose: 80 mg Documented By: BUSSILEATHA Benztropine Mesylate (Benztropine Mesylate 1 Mg Tablet) 1 mg PO BID [facility] Last Admin: 01/27/25 10:15 Dose: 1 mg Documented By: JAGDEEP Betamethasone Dipropion Augmented (Betamethasone Dip Aug 0.05% Cr 15 Gm Tube) 1 appl TOPICAL DAILY [facility] Last Admin: 01/27/25 10:15 Dose: Not Given Documented By: JAGDEEP Non-Admin Reason: Med Not Available Bisacodyl (Bisacodyl 10 Mg Supp.Rect) 10 mg [place] DAILY PRN PRN Reason: Constipation Calcium Carbonate (Calcium Carbonate 750 Mg Tab.Chew) 750 mg PO Q4H PRN PRN Reason: Heartburn Dextrose (Dextrose 50 % 25 Gm/50 Ml Syringe) 25 gm IVPUSH Q15M PRN; Protocol PRN Reason: per Hypoglycemia Standing Ord. Glucose (Glucose Gel 15 Gm Gel..Gram.) 15 gm PO Q15M PRN; Protocol PRN Reason: per Hypoglycemia Standing Ord. Insulin Human Lispro (Insulin Lispro 100 Unit/Ml 3 Ml Vial) 0 unit SUBCUT QIDACHS [facility]; Protocol Last Admin: 01/27/25 16:07 Dose: Not Given Documented By: JAGDEEP Non-Admin Reason: No Insulin Coverage Magnesium Hydroxide (Milk Of Magnesia 30 Ml Oral.Susp) 30 ml PO DAILY PRN PRN Reason: Constipation Magnesium Oxide (Magnesium Oxide 400 Mg Tablet) 400 mg PO BID [facility] Last Admin: 01/27/25 10:14 Dose: 400 mg Documented By: JAGDEEP Melatonin (Melatonin 3 Mg Tablet) 6 mg PO BEDTIME PRN PRN Reason: Insomnia Last Admin: 01/26/25 20:08 Dose: 6 mg Documented By: JAMSHID Metoprolol Tartrate (Metoprolol Tartrate 5 Mg/5 Ml Vial) 2.5 mg IVPUSH Q6H PRN; Protocol PRN Reason: Heart Rate >100 Metoprolol Tartrate (Metoprolol Tartrate 25 Mg Tablet) 25 mg PO BID [facility]; Protocol Last Admin: 01/27/25 10:14 Dose: 25 mg Documented By: JAGDEEP Midodrine (Midodrine Hcl 2.5 Mg Tablet) 2.5 mg PO Q5H PRN PRN Reason: SBP<90 Omeprazole (Omeprazole 20 Mg Capsule.) 20 mg PO DAILY@0630 [facility] Last Admin: 01/27/25 05:47 Dose: 20 mg Documented By: JAMSHID Ondansetron HCl (Ondansetron Hcl 4 Mg/2 Ml Vial) 4 mg IVPUSH Q8H PRN PRN Reason: Nausea and Vomiting Perphenazine (Perphenazine 8 Mg Tablet) 32 mg PO BID [facility] Last Admin: 01/27/25 10:12 Dose: 32 mg Documented By: JAGDEEP Polyethylene Glycol (Polyethylene Glycol 3350 17 Gm Powd.Pack) 17 gm PO DAILY PRN PRN Reason: Constipation Risperidone (Risperidone 2 Mg Tablet) 4 mg PO BID [facility] Last Admin: 01/27/25 10:14 Dose: 4 mg Documented By: JAGDEEP Senna (Sennosides 8.6 Mg Tablet) 17.2 mg PO BEDTIME [facility] Last Admin: 01/26/25 20:07 Dose: 17.2 mg Documented By: JAMSHID Sodium Biphosphate/Sodium Phosphate (Sodium Phosphate,[place]-Dibasic 133 Ml Enema) 118 ml AL DAILY PRN PRN Reason: Constipation Sodium Chloride (0.9 % Sodium Chloride Flush 3 Ml Syringe) 3 ml IVFLUSH QSHIFT [facility] Last Admin: 01/27/25 16:07 Dose: Not Given Documented By: JAGDEEP Non-Admin Reason: No IV Tamsulosin HCl (Tamsulosin Hcl 0.4 Mg Capsule) 0.4 mg PO DAILY [facility] Last Admin: 01/27/25 10:12 Dose: 0.4 mg Documented By: JAGDEEP Trimethoprim/Sulfamethoxazole (Sulfamethox/Trimeth 800/160 Tablet) 1 tab PO Q12H [facility] Last Admin: 01/27/25 11:54 Dose: 1 tab Documented By: JAGDEEP Valproic Acid (Valproic Acid Liquid 250 Mg/5 Ml Solution) 1,000 mg PO BEDTIME [facility] Last Admin: 01/26/25 20:08 Dose: 1,000 mg Documented By: JAMSHID Valproic Acid (Valproic Acid Liquid 250 Mg/5 Ml Solution) 750 mg PO DAILY [facility] Last Admin: 01/27/25 10:13 Dose: 750 mg Documented By: JAGDEEP Labs 01/26/25 08:27 01/26/25 18:08 Labs: Laboratory Results - last 24 hr 01/26/25 01/26/25 01/27/25 18:08 20:45 07:22 Anion Gap 12 Estim Creat Clear Calc 154.1 Estimated GFR > 60 POC Glucose 122 H 102 Random Glucose 108 Calcium 8.3 L Magnesium 2.1 01/27/25 01/27/25 11:28 15:47 Anion Gap Estim Creat Clear Calc Estimated GFR POC Glucose 110 104 Random Glucose Calcium Magnesium Microbiology Microbiology Results: Microbiology 01/21/25 23:35 Blood Culture - Final Blood - Venous No growth after 5 days. Assessment and Plan (1) UTI (urinary tract infection): Status: Acute Assessment and Plan: Sepsis secondary to UTI with high grade temps and required cooling blanket, temp now normal Urine culture GNR Discontinued Ertapenem post culture for pansensitive EColi on cultures. CT of A/P: limited study, no acute abdominal process Started TMP-SMX BID PO for complicated UTI management. (2) Sepsis: Status: Acute Assessment and Plan: Sepsis secondary to UTI with high grade temps and required cooling blanket, temp now normal Urine culture GNR Discontinued Ertapenem post culture for pansensitive EColi on cultures. CT of A/P: limited study, no acute abdominal process Started TMP-SMX BID PO for complicated UTI management. (3) Delirium: Status: Acute Assessment and Plan: Secondary to sepsis. Septic encephalopathy improving and returning to baseline cognitive status. Discontinued Ertapenem post culture for pansensitive EColi on cultures. Started TMP-SMX BID PO for complicated UTI management. (4) Atrial fibrillation with rapid ventricular response: Status: Acute Assessment and Plan: AFIB RVR, HR has topped 160, likely from sepsis, given IV metoprolol, cardiazem IV and later dig loading, HR is better IV dig, cardiology consult. No anticoagulation in past 2/2 ITP (5) Chronic ITP (idiopathic thrombocytopenia): Status: Acute Assessment and Plan: Chronic ITP PLTs 77 No lovenox due to PLT count No obvious evidence of spontaneous Bleeding H/H stable Monitor CBC (6) BPH (benign prostatic hyperplasia): Status: Acute Assessment and Plan: Intermittently incontinent of urine with some urinary retention. Has required straighrt catheterization post cody removal yesterday The patient was started on tamsulosin 0.4mg. Monitoring urinary status. Dependent discharge on successful voiding trial x24 hours. Total time managing care of this patient today: 35 minutes. Quality Stroke Does the patient have a stroke diagnosis?: No Reason for No Anti-thrombotic by Day Two: N/A - Med Ordered VTE Prior VTE?: No VTE Risk Level:: Medical - moderate - high VTE Device Contraindication: N/A - Device Ordered VTE Drug Contraindication: Treatment Not Tolerated (ITP contraindicated)
[2025-01-27 21:11] LABS: Glucose, Whole Blood 114 mg/dL (60-115)
[2025-01-27] MEDS: Valproic Acid Liquid 250 MG/5 ML SOLUTION 1000 MG PO (21:38)
--- NOTE | 2025-01-28 00:37 | PC.NURSE ---
Patient noted to have voided 1000cc via male purewick. PVR is 327. Provider notified. No straight cath until bladder >400cc.
[2025-01-28 03:01] VITALS: BP 145/70; PULSE 78; RESP 16; TEMP 36.9; O2SAT 100
--- NOTE | 2025-01-28 06:29 | PC.NURSE ---
Patient able to void 500cc prior to bladder scan. Bladder scanned for 614cc. Provider notified and ordered to straight cath. SC for 600cc cara urine. Patient tolerated well.
[2025-01-28 07:09] VITALS: BP 126/63; PULSE 70; RESP 18; TEMP 36.2; O2SAT 98
[2025-01-28 07:44] LABS: Glucose, Whole Blood 86 mg/dL (60-115)
[2025-01-28] MEDS: Valproic Acid Liquid 250 MG/5 ML SOLUTION 750 MG PO (08:44)
[2025-01-28 08:50] LABS: B Type Natriuretic Peptide 440 pg/mL (<100)
[2025-01-28 08:54] LABS: Albumin Level 3.1 g/dL (3.5-5.0); Anion Gap 10 (12-20); Blood Urea Nitrogen 9 mg/dL (9-16); Calcium 8.5 mg/dL (8.4-10.2); Carbon Dioxide 28 mmol/L (22-29); Chloride 106 mmol/L (96-108); Creatinine Clr Calc Pharmacy 124.6; Estimated Glomerular Filt Rate > 60; Potassium 4.1 mmol/L (3.3-5.1); Sodium 140 mmol/L (135-145)
[2025-01-28] MEDS: Sulfamethox/Trimeth 800/160 TABLET 1 TAB PO ×2 (09:50→22:53)
[2025-01-28 11:08] VITALS: BP 96/52; PULSE 84; RESP 16; TEMP 36; O2SAT 96
[2025-01-28 11:20] LABS: Glucose, Whole Blood 97 mg/dL (60-115)
--- NOTE | 2025-01-28 13:09 | HO.PM.IMPN ---
Subjective Subjective Date of Service: 01/28/25 Interval History: Very pleasant 69 year old male with dementia and delirium (resolving), representing an unreliable historian. No overt complaints. No concerning findings, signs or symptoms. Patient is comfortable conversing pleasantly. Patient failed 24 hour clearance without straight cath. May require another 24 hours prior to DC Physical Exam Vital Signs: Vital Signs: Last Vital Signs Temp 96.8 F 01/28/25 11:08 Pulse 84 01/28/25 11:08 Resp 16 01/28/25 11:08 BP 96/52 L 01/28/25 11:08 Pulse Ox 96 01/28/25 11:08 O2 Del Method Room Air 01/28/25 11:08 O2 Flow Rate 6 01/22/25 15:55 BMI result Body Mass Index 29.4 Const: Other: General: More awake, alert, oriented to self Resp: CTA bilateral CVS: S1,S2,RRR GI: +BS, NT, no distention Skin: No rash Neuro: motor grossly intact Psych: appropriate affect Objective Data Active Medications Acetaminophen (Acetaminophen 325 Mg Tablet) 650 mg PO Q6H PRN PRN Reason: Pain, Mild 1-3,fever,headache Albuterol/Ipratropium (Albuterol/Iprat 2.5/0.5mg 3 Ml Ampul.Neb) 3 ml INHALE Q4H PRN PRN Reason: Shortness of Breath/Wheezing Aspirin (Aspirin 81 Mg Tab.Chew) 81 mg PO DAILY [facility] Last Admin: 01/28/25 08:43 Dose: 81 mg Documented By: REJI Atorvastatin Calcium (Atorvastatin Calcium 80 Mg Tablet) 80 mg PO BEDTIME [facility] Last Admin: 01/27/25 21:39 Dose: 80 mg Documented By: JAMSHID Benztropine Mesylate (Benztropine Mesylate 1 Mg Tablet) 1 mg PO BID [facility] Last Admin: 01/28/25 08:43 Dose: 1 mg Documented By: REJI Betamethasone Dipropion Augmented (Betamethasone Dip Aug 0.05% Cr 15 Gm Tube) 1 appl TOPICAL DAILY [facility] Last Admin: 01/28/25 08:46 Dose: Not Given Documented By: REJI Non-Admin Reason: Med Not Available Bisacodyl (Bisacodyl 10 Mg Supp.Rect) 10 mg ME DAILY PRN PRN Reason: Constipation Calcium Carbonate (Calcium Carbonate 750 Mg Tab.Chew) 750 mg PO Q4H PRN PRN Reason: Heartburn Dextrose (Dextrose 50 % 25 Gm/50 Ml Syringe) 25 gm IVPUSH Q15M PRN; Protocol PRN Reason: per Hypoglycemia Standing Ord. Glucose (Glucose Gel 15 Gm Gel..Gram.) 15 gm PO Q15M PRN; Protocol PRN Reason: per Hypoglycemia Standing Ord. Insulin Human Lispro (Insulin Lispro 100 Unit/Ml 3 Ml Vial) 0 unit SUBCUT QIDACHS [facility]; Protocol Last Admin: 01/28/25 11:23 Dose: Not Given Documented By: REJI Non-Admin Reason: poc= 97 Magnesium Hydroxide (Milk Of Magnesia 30 Ml Oral.Susp) 30 ml PO DAILY PRN PRN Reason: Constipation Magnesium Oxide (Magnesium Oxide 400 Mg Tablet) 400 mg PO BID [facility] Last Admin: 01/28/25 08:43 Dose: 400 mg Documented By: REJI Melatonin (Melatonin 3 Mg Tablet) 6 mg PO BEDTIME PRN PRN Reason: Insomnia Last Admin: 01/27/25 21:39 Dose: 6 mg Documented By: JAMSHID Metoprolol Tartrate (Metoprolol Tartrate 5 Mg/5 Ml Vial) 2.5 mg IVPUSH Q6H PRN; Protocol PRN Reason: Heart Rate >100 Metoprolol Tartrate (Metoprolol Tartrate 25 Mg Tablet) 25 mg PO BID [facility]; Protocol Last Admin: 01/28/25 08:43 Dose: 25 mg Documented By: REJI Midodrine (Midodrine Hcl 2.5 Mg Tablet) 2.5 mg PO Q5H PRN PRN Reason: SBP<90 Omeprazole (Omeprazole 20 Mg Capsule.Dr) 20 mg PO DAILY@0630 [facility] Last Admin: 01/28/25 06:04 Dose: 20 mg Documented By: JAMSHID Ondansetron HCl (Ondansetron Hcl 4 Mg/2 Ml Vial) 4 mg IVPUSH Q8H PRN PRN Reason: Nausea and Vomiting Perphenazine (Perphenazine 8 Mg Tablet) 32 mg PO BID [facility] Last Admin: 01/28/25 08:43 Dose: 32 mg Documented By: REJI Polyethylene Glycol (Polyethylene Glycol 3350 17 Gm Powd.Pack) 17 gm PO DAILY PRN PRN Reason: Constipation Risperidone (Risperidone 2 Mg Tablet) 4 mg PO BID [facility] Last Admin: 01/28/25 08:43 Dose: 4 mg Documented By: REJI Senna (Sennosides 8.6 Mg Tablet) 17.2 mg PO BEDTIME [facility] Last Admin: 01/27/25 21:39 Dose: 17.2 mg Documented By: JAMSHID Sodium Biphosphate/Sodium Phosphate (Sodium Phosphate,[place]rain-Dibasic 133 Ml Enema) 118 ml ME DAILY PRN PRN Reason: Constipation Sodium Chloride (0.9 % Sodium Chloride Flush 3 Ml Syringe) 3 ml IVFLUSH QSHIFT [facility] Last Admin: 01/28/25 08:44 Dose: Not Given Documented By: REJI Non-Admin Reason: Med Not Available Tamsulosin HCl (Tamsulosin Hcl 0.4 Mg Capsule) 0.4 mg PO DAILY [facility] Last Admin: 01/28/25 08:43 Dose: 0.4 mg Documented By: REJI Trimethoprim/Sulfamethoxazole (Sulfamethox/Trimeth 800/160 Tablet) 1 tab PO Q12H [facility] Last Admin: 01/28/25 09:50 Dose: 1 tab Documented By: REJI Valproic Acid (Valproic Acid Liquid 250 Mg/5 Ml Solution) 1,000 mg PO BEDTIME [facility] Last Admin: 01/27/25 21:38 Dose: 1,000 mg Documented By: JAMSHID Valproic Acid (Valproic Acid Liquid 250 Mg/5 Ml Solution) 750 mg PO DAILY [facility] Last Admin: 01/28/25 08:44 Dose: 750 mg Documented By: REJI Labs 01/26/25 08:27 01/28/25 08:12 Labs: Laboratory Results - last 24 hr 01/27/25 01/27/25 01/28/25 15:47 20:43 07:08 Anion Gap Estim Creat Clear Calc Estimated GFR POC Glucose 104 114 86 Random Glucose Calcium B-Natriuretic Peptide Albumin 01/28/25 01/28/25 08:12 11:07 Anion Gap 10 L Estim Creat Clear Calc 124.6 Estimated GFR > 60 POC Glucose 97 Random Glucose 88 Calcium 8.5 B-Natriuretic Peptide 440 H Albumin 3.1 L Microbiology Microbiology Results: Microbiology 01/21/25 23:35 Blood Culture - Final Blood - Venous No growth after 5 days. Assessment and Plan (1) UTI (urinary tract infection): Status: Acute Assessment and Plan: Sepsis secondary to UTI with high grade temps and required cooling blanket, temp now normal Urine culture GNR Discontinued Ertapenem post culture for pansensitive EColi on cultures. CT of A/P: limited study, no acute abdominal process Started TMP-SMX BID PO for complicated UTI management. (2) Sepsis: Status: Acute Assessment and Plan: Sepsis secondary to UTI with high grade temps and required cooling blanket, temp now normal Urine culture GNR Discontinued Ertapenem post culture for pansensitive EColi on cultures. CT of A/P: limited study, no acute abdominal process Started TMP-SMX BID PO for complicated UTI management. (3) Delirium: Status: Acute Assessment and Plan: Secondary to sepsis. Septic encephalopathy improving and returning to baseline cognitive status. Discontinued Ertapenem post culture for pansensitive EColi on cultures. Started TMP-SMX BID PO for complicated UTI management. (4) Atrial fibrillation with rapid ventricular response: Status: Acute Assessment and Plan: AFIB RVR, HR has topped 160, likely from sepsis, given IV metoprolol, cardiazem IV and later dig loading, HR is better Cardiology consulted Patient currently on metoprolol. No anticoagulation in past 2/2 ITP. Plts currently stabilizing. Discussion with Cardiology; plan to start apixaban 5mg BID PO (5) Chronic ITP (idiopathic thrombocytopenia): Status: Acute Assessment and Plan: Chronic ITP PLTs improving gradually. No obvious evidence of spontaneous Bleeding H/H stable Monitor CBC (6) BPH (benign prostatic hyperplasia): Status: Acute Assessment and Plan: Intermittently incontinent of urine with some urinary retention. Has required straighrt catheterization post cody removal yesterday The patient was started on tamsulosin 0.4mg. Monitoring urinary status. Dependent discharge on successful voiding trial x24 hours. (7) Nonrheumatic aortic (valve) stenosis: Status: Acute Assessment and Plan: Cardiology input greatly appreciated Mild cardiomyopathy and severe aortic stenosis on ECHO. As per evaluation, the patient is not a good candidate for invasive studies. Plts have stabilized and gradually improving. Will discuss findings with family members; residential. FU with outpatient Cardiology on DC Quality Stroke Does the patient have a stroke diagnosis?: No Reason for No Anti-thrombotic by Day Two: N/A - Med Ordered VTE Prior VTE?: No VTE Risk Level:: Medical - moderate - high VTE Device Contraindication: N/A - Device Ordered VTE Drug Contraindication: N/A - Med Ordered (Apixaban 5mg BID PO )
[2025-01-28 15:19] VITALS: BP 142/71; PULSE 64; RESP 18; TEMP 36.1; O2SAT 97
[2025-01-28 16:19] LABS: Glucose, Whole Blood 92 mg/dL (60-115)
[2025-01-28 20:00] VITALS: BP 138/69; PULSE 75; RESP 20; TEMP 36.4; O2SAT 98
[2025-01-28] MEDS: Valproic Acid Liquid 250 MG/5 ML SOLUTION 1000 MG PO (21:38)
[2025-01-28 21:49] LABS: Glucose, Whole Blood 91 mg/dL (60-115)
[2025-01-28 23:51] VITALS: BP 120/64; PULSE 50; RESP 20; TEMP 35.6; O2SAT 99
[2025-01-29 03:14] VITALS: TEMP 36.4
[2025-01-29 04:00] VITALS: BP 120/72; PULSE 70; RESP 20; TEMP 36.5; O2SAT 99
[2025-01-29 07:20] LABS: Hematocrit 33.4 % (42.0-52.0); Hemoglobin 11.2 g/dl (14.0-18.0); Mean Corpuscular HGB Conc 33.5 g/dl (31.0-36.0); Mean Corpuscular Hemoglobin 32.7 pg (27.0-33.0); Mean Corpuscular Volume 97.4 fL (80.0-98.0); NRBC Abs Auto 0.000 X10*3/uL (0.0-0.012); NRBC Pct Auto 0.0 /100WBC (0.0-0.2); Platelet Count 195 X10*3/uL (160-400); Red Blood Count 3.43 X10*6/uL (4.60-5.80); White Blood Count 5.9 X10*3/uL (4.8-10.8)
[2025-01-29 08:00] VITALS: BP 107/63; PULSE 60; RESP 18; TEMP 36.6; O2SAT 97
[2025-01-29 08:03] LABS: Glucose, Whole Blood 92 mg/dL (60-115)
[2025-01-29] MEDS: Valproic Acid Liquid 250 MG/5 ML SOLUTION 750 MG PO (09:08)
[2025-01-29 11:39] LABS: Glucose, Whole Blood 123 mg/dL (60-115)
[2025-01-29] MEDS: Sulfamethox/Trimeth 800/160 TABLET 1 TAB PO (12:02)
[2025-01-29] MEDS: Milk of Magnesia 30 ML ORAL.SUSP PO (12:08)
--- NOTE | 2025-01-29 13:33 | P.DS_ITS ---
DS: Providers Provider Date of Service: 01/29/25 Date of admission: 01/22/25 00:47 Date of discharge: 01/29/25 Primary care physician: ALICIA LAMAR Consults: 01/22/25 09:52 Consult to Cardiology Stat Consulting Provider: [facility] Reason for consultation: AFIB with RVR 01/23/25 07:53 Consult to Wound Care Routine Reason for consultation: blanchable redness w/ abrasion to buttocks. DS: Diagnosis Discharge Diagnosis (1) UTI (urinary tract infection): Status: Acute (2) Sepsis: Status: Acute (3) Delirium: Status: Acute (4) Atrial fibrillation with rapid ventricular response: Status: Acute (5) Chronic ITP (idiopathic thrombocytopenia): Status: Acute (6) BPH (benign prostatic hyperplasia): Status: Acute (7) Nonrheumatic aortic (valve) stenosis: Status: Acute DS: Summary Hospital Course Hospital Course: admission hpi Chief Complaint: sepsis Pt is a 69 yo male residing at [facility] unable to provide HPI/PMH/PSH due to illness/ somnolence/sepsis secondary to UTI. Records from [facility] note pt's current PMH to include DMII, CAD, CABD, AFIB not on AC, Aortic Stenosis, OA, Vascular Dementia, Schizoaffective D/O (no guardian per paperwork), JEREMIAS, Chronic ITP, RADHA, Macular Degeneration presents to ED BIBA after pt developed temp 104 at 3PM and nurse transition teacher was notified. Pt received tylenol but with increasing AMS, and 911 was eventually called. Pt arrived somnolent, febrile 102.4. Leukocytosis of 17. LA 2.7.UA positive for UTI. Pt in AFIB, rate iniitally 114. Pt met criteria for sepsis and protocol followed in ED. CXR noted Bibasillar atelectasis. Pt NPO currently. Pt started on ceftriaxone IVP. BNP 301, pt so far tolerating fluids and has not experienced hypoxia. Temp down to 100.9. VBG pending. Paperwork from [facility] does not detail pt's advance directives. Pt admitted as full code. Pt does not have guardian listed or contact information. hospital course: UTI and Sepsis Patient presented with Sepsis secondary to UTI with high grade temps and required cooling blanket until temperatures normalized. Initially treated with Ceftriaxone, then transitioned to Meropenem. Urine culture grew E. coli pansensitive. CT of abdomen was limited yet showed no acute finding Urine culture GNR. He was later switched to Bactrim and will treat for a total of 10 days. Fever and sepsis resolved. AFIB RVR, HR topped 160, likely from sepsis, given IV metoprolol, cardiazem IV and later dig loading, HR is is controlled presently on Metoprolol 25 mg twice daily. He was seen by cardiology with recommendation anticoagulation and started on Eliquis 5 mg twice daily, there is history of ITP but platlet is presently normal. Chronic ITP PLTs improving gradually and presently 194 BPH (benign prostatic hyperplasia): Intermittently incontinent of urine with some urinary retention. Has required straighrt catheterization post cody removal The patient was started on tamsulosin 0.4mg. Nonrheumatic aortic (valve) stenosis: Mild cardiomyopathy and severe aortic stenosis on ECHO. As per evaluation, the patient is not a good candidate for invasive studies. He is otherwise stable. Can follow up with cardiology on outpatient basis Time Attestation Discharge Coordination Time (in mins): 40 Quality: Safe Use of Opioids Does Pt have an Active Cancer Diagnosis on the Problem List?: No Quality: Stroke Does the patient have a stroke diagnosis?: No Physical Exam Vital Signs: Vital Signs: Last Vital Signs Temp 97.8 F 01/29/25 08:00 Pulse 60 01/29/25 08:00 Resp 18 01/29/25 08:00 BP 107/63 01/29/25 08:00 Pulse Ox 97 01/29/25 08:00 O2 Del Method Room Air 01/29/25 08:00 O2 Flow Rate 6 01/22/25 15:55 BMI result Body Mass Index 29.4 DS: Data Data Completed and Pending Labs on day of discharge: Laboratory Results - last 24 hr 01/28/25 01/28/25 01/29/25 16:14 21:28 06:25 WBC 5.9 RBC 3.43 L Hgb 11.2 L Hct 33.4 L MCV 97.4 MCH 32.7 MCHC 33.5 RDW 13.7 Plt Count 195 D MPV 9.6 Absolute Nucleated RBC 0.000 Nucleated RBC % (auto) 0.0 POC Glucose 92 91 01/29/25 01/29/25 07:56 11:28 WBC RBC Hgb Hct MCV MCH MCHC RDW Plt Count MPV Absolute Nucleated RBC Nucleated RBC % (auto) POC Glucose 92 123 H Discharge Plan Discharge Anticipated Discharge Date/Time: 01/29/25 13:45 Patient Disposition: Xfer SNF Discharge Diagnosis: UTI, sepsis Referrals: ALICIA LAMAR [Primary Care Provider, Internal Medicine] - 1 Week Discharge Medications: New sulfamethoxazole-trimethoprim 800-160 mg Tablet 1 tab PO Q12H Qty: 6 0RF metoprolol tartrate 25 mg Tablet 25 mg PO BID Qty: 180 0RF Protocol: Hold for SBP/HR < HOLD for SBP < : 90 HOLD for HR < : 60 Continued metformin 500 mg Tablet 500 mg PO BID atorvastatin 80 mg Tablet 80 mg PO BEDTIME sennosides [senna] 8.6 mg Tablet 8.6 mg PO BEDTIME acetaminophen 325 mg Tablet 650 mg PO Q6H PRN (Reason: General Discomfort/Fever) acetaminophen 650 mg Suppository [address] Q6H PRN (Reason: General Discomfort/Fever) naloxone 0.4 mg/mL Solution 0.4 mg SUBCUT Q3M PRN (Reason: Opioid Overdose) Rx Instructions: NTExceed 10 mg total dose/episode potassium chloride 10 mEq Tablet Extended Release 10 meq PO DAILY valproic acid 250 mg Capsule 750 mg PO DAILY valproic acid 250 mg Capsule 1,000 mg PO BEDTIME spironolactone 25 mg Tablet 12.5 mg PO DAILY risperidone 2 mg Tablet 4 mg PO BID magnesium hydroxide [Milk of Magnesia] 400 mg/5 mL Suspension 30 ml PO DAILY PRN (Reason: Constipation) Rx Instructions: If no BM in 3 days. bisacodyl 10 mg Suppository [address] DAILY PRN (Reason: Constipation) Rx Instructions: If MoM not effective. benztropine 1 mg Tablet 1 mg PO BID Fleet Enema 19-7 gram/118 mL Enema [address] DAILY PRN (Reason: Constipation) Rx Instructions: If Bisacodyl suppository not effective. betamethasone dipropionate 0.05 % Cream 1 appl TOPICAL DAILY aspirin 81 mg Tablet 81 mg PO DAILY midodrine 2.5 mg Tablet 2.5 mg PO Q5H PRN (Reason: SBP<90) furosemide 20 mg Tablet 20 mg PO DAILY perphenazine 16 mg Tablet 32 mg PO BID naloxone 0.4 mg/mL Syringe 0.4 mg IM Q2M PRN (Reason: Opioid Overdose) Rx Instructions: NTExceed 10 mg total dose/episode Muscle Rub 15-10 % Cream 1 appl TOPICAL BID PRN (Reason: Muscle Aches) omeprazole 20 mg Tablet,Delayed Release (Dr/Ec) 20 mg PO DAILY@0630 magnesium oxide 400 mg magnesium Tablet 400 mg PO BID glucagon 1 mg/0.2 mL Solution 1 mg SUBCUT Q15M PRN (Reason: Low Blood Sugars) Rx Instructions: until target blood sugar attained Discharge Orders: Discharge Order (Routine); Ordered 01/29/25 Ordered By: Al Cotto Diet: Advance to usual diet Activity on Discharge: As tolerated Stand Alone Forms: Patient Portal Discharge page Print Language: Citizen [place] Care Plan Goals: recovery from sepsis due to uti Health Concerns: sepsis, uti, urinary retention, afib with rapid response Plan of Treatment: take bactrim as recommended to finish treatment for uti follow up with your Doctor in a week Assessment: see above
--- NOTE | 2025-01-29 15:21 | MHC.SLORD ---
Speech Language Pathology Order Status: Pt not seen 01/29, tolerating diet as ordered. [employer] to followup x1.
[2025-01-29 16:00] VITALS: BP 120/68; PULSE 83; RESP 18; TEMP 36.6; O2SAT 99
== END 2025-01-29 16:31 | disposition skilled nursing facility (03) | DRG 871 ==
LOC: HO.ED 01-22 00:51 → HO.EDOVER 01-22 01:28 → HO.IMC 01-22 02:40 → HO.EDOVER 01-22 02:47 → HO.IMC 01-22 19:12
PROVIDERS: Hospitalist; Admitting Provider Nurse Practitioner Family; Emergency Provider Emergency Medicine; PCP Emergency Medicine; Visit Provider Internal Medicine
DX: A41.9 Sepsis, unspecified organism (principal); G92.8 Other toxic encephalopathy; D69.3 Immune thrombocytopenic purpura; I42.9 Cardiomyopathy, unspecified; F05 Delirium due to known physiological condition; N39.0 Urinary tract infection, site not specified; N40.1 Benign prostatic hyperplasia with lower urinary tract symptoms; I35.0 Nonrheumatic aortic (valve) stenosis; B96.20 Unspecified Escherichia coli [E. coli] as the cause of diseases classified elsewhere; R33.8 Other retention of urine; I25.10 Atherosclerotic heart disease of native coronary artery without angina pectoris; F01.50 Vascular dementia, unspecified severity, without behavioral disturbance, psychotic disturbance, mood disturbance, and anxiety; E11.9 Type 2 diabetes mellitus without complications; Z20.822 Contact with and (suspected) exposure to COVID-19; Z79.82 Long term (current) use of aspirin; Z79.84 Long term (current) use of oral hypoglycemic drugs; Z79.899 Other long term (current) drug therapy
CPT/HCPCS: 36415; 71045; 74176; 80048; 80053; 80076; 81001; 82040; 82533; 82803; 82947; 83605; 83690; 83735; 83880; 84439; 84443; 84484; 85025; 85027; 87040; 87086; 87088; 87186; 87635; 87637; 92526; 92610; 93005; 93306; 99285; J0131; J0616; J0696; J1160; J2185; J3360; J7120; Q9957

== ENCOUNTER → 2025-01-21 23:31 | Outpatient (BNV) | payer MEDICARE, SELFPAY | PROVIDERS: Admitting Provider Nurse Practitioner Family; Emergency Provider Emergency Medicine; PCP Emergency Medicine; Visit Provider Radiology Diagnostic Radiology | DX: R41.82 Altered mental status, unspecified (principal); R50.9 Fever, unspecified | CPT/HCPCS: 71045 ==

== ENCOUNTER → 2025-01-21 23:31 | Outpatient (BNV) | payer MEDICARE, SELFPAY | PROVIDERS: Admitting Provider Nurse Practitioner Family; Emergency Provider Emergency Medicine; PCP Emergency Medicine; Visit Provider Internal Medicine | DX: I48.91 Unspecified atrial fibrillation (principal) | CPT/HCPCS: 93010 ==

== ENCOUNTER 2025-01-22 00:47 | Outpatient (BNV) | payer MEDICARE, SELFPAY | END 2025-01-23 07:00 | PROVIDERS: Admitting Provider Nurse Practitioner Family; Emergency Provider Emergency Medicine; PCP Emergency Medicine; Visit Provider Internal Medicine | DX: I35.0 Nonrheumatic aortic (valve) stenosis (principal); I42.2 Other hypertrophic cardiomyopathy; I34.0 Nonrheumatic mitral (valve) insufficiency; I36.1 Nonrheumatic tricuspid (valve) insufficiency | CPT/HCPCS: 93306 ==

== ENCOUNTER 2025-01-22 00:47 | Outpatient (BNV) | payer MEDICARE, SELFPAY | END 2025-01-22 17:37 | PROVIDERS: Admitting Provider Nurse Practitioner Family; Emergency Provider Emergency Medicine; PCP Emergency Medicine; Visit Provider Specialist | DX: A41.9 Sepsis, unspecified organism (principal); N39.0 Urinary tract infection, site not specified | CPT/HCPCS: 74176 ==

== ENCOUNTER 2025-01-22 00:47 | Outpatient (BNV) | payer MEDICARE, SELFPAY | END 2025-01-26 17:52 | PROVIDERS: Admitting Provider Nurse Practitioner Family; Emergency Provider Emergency Medicine; PCP Emergency Medicine; Visit Provider Internal Medicine | DX: I48.91 Unspecified atrial fibrillation (principal) | CPT/HCPCS: 93010 ==

== ENCOUNTER → 2025-01-22 00:47 | Outpatient (BNV) | payer MEDICARE, SELFPAY | PROVIDERS: Admitting Provider Nurse Practitioner Family; Emergency Provider Emergency Medicine; PCP Emergency Medicine; Visit Provider Internal Medicine | DX: I48.91 Unspecified atrial fibrillation (principal) | CPT/HCPCS: 93010; 99223; 99233 ==

== ENCOUNTER → 2025-01-22 00:47 | Outpatient (BNV) | payer MEDICARE, SELFPAY | PROVIDERS: Admitting Provider Nurse Practitioner Family; Emergency Provider Emergency Medicine; PCP Emergency Medicine; Visit Provider Nurse Practitioner Family | DX: A41.9 Sepsis, unspecified organism (principal); N39.0 Urinary tract infection, site not specified; I48.91 Unspecified atrial fibrillation | CPT/HCPCS: 99499 ==